=== PATIENT | female | born 1990 | race African-American/Black ===

== ENCOUNTER 2017-11-30 15:04 | Emergency (ER) | payer SELFPAY ==
--- NOTE | 2017-11-30 15:34 | EDPHYS ---
Physician Documentation [facility] Name: Cata Murray Age: 27 yrs Sex: Female : 1990 Arrival Date: 11/30/2017 Time: 15:05 Bed 20 Private MD: ED Physician Wolf Crain HPI: 11/30 15:28 This 27 yrs old Black Female presents to ER via Ambulatory with complaints of kdr Toothache, Headache. 15:28 The patient presents with broken tooth/teeth, pain. The problem is located in the lower kdr left third molar. Onset: The symptoms/episode began/occurred suddenly, this morning, at 05:30. Duration: The symptoms are continuous, and are steadily getting worse. Modifying factors: The symptoms are alleviated by nothing, the symptoms are aggravated by air, chewing, cold fluids. Associated signs and symptoms: Pertinent positives: pain, Headache. Severity of symptoms: At their worst the symptoms were moderate, in the emergency department the symptoms are unchanged. The patient has not experienced similar symptoms in the past. The patient has not recently seen a physician. 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 - Social history:: Smoking status: Patient/guardian denies using tobacco. ROS: 15:28 Constitutional: Negative for fever, chills, and weight loss, Eyes: Negative for injury, kdr pain, redness, and discharge, Neck: Negative for injury, pain, and swelling, Cardiovascular: Negative for chest pain, palpitations, and edema, Respiratory: Negative for shortness of breath, cough, wheezing, and pleuritic chest pain, Abdomen/GI: Negative for abdominal pain, nausea, vomiting, diarrhea, and constipation, Back: Negative for injury and pain, : Negative for injury, bleeding, discharge, and swelling, MS/Extremity: Negative for injury and deformity, Skin: Negative for injury, rash, and discoloration, Neuro: Negative for headache, weakness, numbness, tingling, and seizure activity. Psych: Negative for depression, anxiety, suicide ideation, homicidal ideation, and hallucinations, Allergy/Immunology: Negative for hives, rash, and allergies, Endocrine: Negative for neck swelling, polydipsia, polyuria, polyphagia, and marked weight changes, Hematologic/Lymphatic: Negative for swollen nodes, abnormal bleeding, and unusual bruising. 15:28 ENT: Positive for dental pain, of the lower left third molar. Exam: 15:28 Constitutional: This is a well developed, well nourished patient who is awake, alert, kdr and in no acute distress. Head/Face: Normocephalic, atraumatic. Eyes: Pupils equal round and reactive to light, extra-ocular motions intact. Lids and lashes normal. Conjunctiva and sclera are non-icteric and not injected. Cornea within normal limits. Periorbital areas with no swelling, redness, or edema. Neck: Trachea midline, no thyromegaly or masses palpated, and no cervical lymphadenopathy. Supple, full range of motion without nuchal rigidity, or vertebral point tenderness. No Meningismus. Chest/axilla: Normal chest wall appearance and motion. Nontender with no deformity. No lesions are appreciated. 15:28 ENT: Dental exam: dental caries, that is mild, specifically in the lower left third molar (#17), pain. Vital Signs: 15:09 BP 149 / 110; Pulse 90; Resp 16; Temp 98.5; Pulse Ox 100% on R/A; Weight 83.91 kg; la1 Height 5 ft. 5 in. (165.10 cm); 15:09 Body Mass Index 30.79 (83.91 kg, 165.10 cm) la1 MDM: 15:28 Data reviewed: vital signs, nurses notes. Counseling: I had a detailed discussion with kdr the patient and/or guardian regarding: the historical points, exam findings, and any diagnostic results supporting the discharge/admit diagnosis, the need for outpatient follow up. 15:34 Patient medically screened. kdr Administered Medications: 15:44 Drug: TORadol 60 mg Route: IM; Site: right gluteus; em 16:00 Follow up: Response: No adverse reaction em 15:44 Drug: Amoxicillin 500 mg Route: PO; em 16:00 Follow up: Response: No adverse reaction em 15:44 Drug: Flagyl 500 mg Route: PO; em 16:00 Follow up: Response: No adverse reaction em Disposition: 11/30/17 15:34 Discharged to Home. Impression: Dental caries. - Condition is Stable. - Discharge Instructions: Dental Pain, [id number]. - Prescriptions for Amoxicillin 500 mg Oral Capsule - take 1 capsule by ORAL route every 8 hours for 10 days; 30 tablet. Flagyl 500 mg Oral Tablet - take 1 tablet by ORAL route every 6 hours for 10 days; 40 tablet. Tylenol- Codeine #3 300-30 mg Oral Tablet - take 2 tablets by ORAL route every 6 hours As needed; 16 tablet. - Medication Reconciliation Form, Thank You Letter, Antibiotic Education, Prescription Opioid Use form. - Follow up: Private Physician; When: 1 - 2 days; Reason: If symptoms return, Further diagnostic work-up, Recheck today's complaints, Continuance of care, Re-evaluation by your physician. - Problem is new. - Symptoms have improved. Signatures: Wolf Crain MD MD kdr Munoz, Edgar, DIRECTOR SEMICONDUCTOR DIRECTOR SEMICONDUCTOR Jaquelin Dubon, RN RN iw Petr Bajwa RN RN la1
--- NOTE | 2017-11-30 15:34 | ER ---
Nurse's Notes [facility] Name: Cata Murray Age: 27 yrs Sex: Female : 1990 Arrival Date: 11/30/2017 Time: 15:05 Bed 20 Private MD: Diagnosis: Dental caries Presentation: 11/30 15:08 Presenting complaint: Patient states: toothache since this morning. Transition of care: la1 patient was not received from another setting of care. Onset of symptoms was November 30, 2017. Care prior to arrival: None. 15:08 Method Of Arrival: Ambulatory la1 15:08 Acuity: CARLOS 5 la1 Triage Assessment: 15:48 EENT: Reports. 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 - Social history:: Smoking status: Patient/guardian denies using tobacco. Screenin:47 Abuse screen: Denies threats or abuse. Nutritional screening: No deficits noted. em Tuberculosis screening: No symptoms or risk factors identified. Fall Risk None identified. Assessment: 15:30 General: Appears in no apparent distress. uncomfortable, Behavior is calm, cooperative. em Pain: Complains of pain in lower left third molar Pain currently is 10 out of 10 on a pain scale. Pain began 0500 this morning. Neuro: Level of Consciousness is awake, alert, obeys commands, Oriented to person, place, time, situation. Cardiovascular: Capillary refill < 3 seconds Patient's skin is warm and dry. Respiratory: Airway is patent Respiratory effort is even, unlabored, Respiratory pattern is regular, symmetrical. GI: Abdomen is round non-distended. : No signs and/or symptoms were reported regarding the genitourinary system. EENT: Oral mucosa is moist. Dental caries noted in lower left third molar. Derm: Skin is intact, Skin is pink, warm \T\ dry. Musculoskeletal: Range of motion: intact in all extremities. Vital Signs: 15:09 BP 149 / 110; Pulse 90; Resp 16; Temp 98.5; Pulse Ox 100% on R/A; Weight 83.91 kg; la1 Height 5 ft. 5 in. (165.10 cm); 15:09 Body Mass Index 30.79 (83.91 kg, 165.10 cm) la1 ED Course: 15:05 Patient arrived in ED. as 15:09 Triage completed. la1 15:10 Arm band placed on left wrist. la1 15:16 Wolf Crain MD is Attending Physician. kdr 15:29 Gabriel Rogel LVN is Primary Nurse. em 15:30 Patient has correct armband on for positive identification. Bed in low position. Call em light in reach. Side rails up X2. 15:47 No provider procedures requiring assistance completed. Patient did not have IV access em during this emergency room visit. Administered Medications: 15:44 Drug: TORadol 60 mg Route: IM; Site: right gluteus; em 16:00 Follow up: Response: No adverse reaction em 15:44 Drug: Amoxicillin 500 mg Route: PO; em 16:00 Follow up: Response: No adverse reaction em 15:44 Drug: Flagyl 500 mg Route: PO; em 16:00 Follow up: Response: No adverse reaction em Outcome: 15:34 Discharge ordered by . kdr 15:47 Discharged to home ambulatory. em 15:47 Condition: good 15:47 Discharge instructions given to patient, Instructed on discharge instructions, follow up and referral plans. medication usage, Demonstrated understanding of instructions, follow-up care, medications, Prescriptions given X 3. 15:59 Patient left the ED. iw Signatures: Wolf Crain MD MD kdr Gabriel Rogel, TEE OLIVEIRA em [place] as Jaquelin Arguello RN DADA iw Petr Bajwa RN RN la
[2017-11-30] MEDS ORDERED: KETOROLAC 30 MG/ML INJ ONE (15:54)
[2017-11-30] MEDS ORDERED: AMOXICILLIN TRIHYDR 250 MG CAP ONE (15:54)
[2017-11-30] MEDS ORDERED: metroNIDAZOLE 500 MG TABLET ONE (15:54)
== END 2017-11-30 15:59 | disposition home or self-care (01) ==
LOC: ER 15:04
DX: K02.9 Dental caries, unspecified (principal)
CPT/HCPCS: 96372; 99283

== ENCOUNTER 2017-12-02 15:35 | Emergency (ER) | payer SELFPAY ==
[2017-12-02] MEDS ORDERED: CLINDAMYCIN 900MG/D5W 900 MG/50 ML BAG IV ONE (16:43)
[2017-12-02] MEDS ORDERED: HYDROCODONE/APAP 10/325 TAB ONE (16:44)
--- NOTE | 2017-12-02 17:04 | EDPHYS ---
Physician Documentation [facility] Name: Cata Murray Age: 27 yrs Sex: Female : 1990 Arrival Date: 12/02/2017 Time: 15:38 Bed 14 Private MD: ED Physician Vasiliy Salguero HPI: 12/02 16:47 This 27 yrs old Black Female presents to ER via Ambulatory with complaints of Facial pm1 Swelling. 16:47 The patient presents with broken tooth/teeth, swelling. The problem is located in the pm1 lower left third molar. Onset: The symptoms/episode began/occurred 3 day(s) ago. Duration: The symptoms are continuous. Modifying factors: The symptoms are alleviated by nothing, the symptoms are aggravated by chewing, food. Associated signs and symptoms: Pertinent negatives: abdominal pain, chest pain, earache, fever, shortness of breath, sore throat. Severity of symptoms: in the emergency department the symptoms are actually worse. The patient has been recently seen at the [facility] Emergency Department, for similar complaints Patient was seen here two days ago and prescribed amoxicillin and Flagyl for dental caries. Patient started the antibiotics and saw a dentist yesterday. Patient woke up with swelling to left jaw this morning. Contacted her dentist and was instructed to report to the ER for stronger antibiotics. 16:47 No trismus. Patient able to eat and drink. No fevers. 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 - Social history:: Smoking status: Patient/guardian denies using tobacco. ROS: 16:58 Constitutional: Negative for fever, chills, and weight loss, Eyes: Negative for injury, pm1 pain, redness, and discharge. 16:58 Neck: Negative for injury, pain, and swelling, Cardiovascular: Negative for chest pain, palpitations, and edema, Respiratory: Negative for shortness of breath, cough, wheezing, and pleuritic chest pain, Abdomen/GI: Negative for abdominal pain, nausea, vomiting, diarrhea, and constipation, Back: Negative for injury and pain, MS/Extremity: Negative for injury and deformity. 16:58 Neuro: Negative for headache, weakness, numbness, tingling, and seizure. 16:58 ENT: Positive for dental pain, Negative for sore throat, difficulty swallowing, difficulty handling secretions, hoarseness. 16:58 Skin: Positive for swelling, of the left mandible. Exam: 16:58 Constitutional: This is a well developed, well nourished patient who is awake, alert, pm1 and in no acute distress. Head/Face: Normocephalic, atraumatic. Eyes: Pupils equal round and reactive to light, extra-ocular motions intact. Lids and lashes normal. Conjunctiva and sclera are non-icteric and not injected. Cornea within normal limits. Periorbital areas with no swelling, redness, or edema. 16:58 Neck: Trachea midline, no thyromegaly or masses palpated, and no cervical lymphadenopathy. Supple, full range of motion without nuchal rigidity, or vertebral point tenderness. No Meningismus. Chest/axilla: Normal chest wall appearance and motion. Nontender with no deformity. No lesions are appreciated. Cardiovascular: Regular rate and rhythm with a normal S1 and S2. No gallops, murmurs, or rubs. No pulse deficits. Respiratory: Lungs have equal breath sounds bilaterally, clear to auscultation and percussion. No rales, rhonchi or wheezes noted. No increased work of breathing, no retractions or nasal flaring. Abdomen/GI: Soft, non-tender, with normal bowel sounds. No distension or tympany. No guarding or rebound. No evidence of tenderness throughout. Back: No spinal tenderness. No costovertebral tenderness. Full range of motion. Skin: Warm, dry with normal turgor. Normal color with no rashes, no lesions, and no evidence of cellulitis. MS/ Extremity: Pulses equal, no cyanosis. Neurovascular intact. Full, normal range of motion. 16:58 ENT: External ear(s): are unremarkable, Ear canal(s): are normal, TM's: are normal, Nose: is normal, Mouth: Lips: normal, Oral mucosa: normal, pink and intact, moist, Gums: normal with healthy appearance, Tongue: is normal, No trismus, floor of mouth soft, Posterior pharynx: is normal, Airway: normal, no evidence of obstruction, patent, Tonsils: are normal in appearance, Uvula: normal, midline, non-edematous, no erythema, Dental exam: fractured teeth are noted, specifically the lower left third molar. 16:58 Neuro: Orientation: is normal, Motor: is normal, Gait: is steady, at a normal pace, without difficulty. Vital Signs: 16:01 BP 135 / 101; Pulse 84; Resp 19; Temp 98.0; Pulse Ox 99% on R/A; Weight 83.91 kg; aj Height 5 ft. 5 in. (165.10 cm); Pain 10/10; 17:00 BP 123 / 88; Pulse 80; Resp 16; Pulse Ox 98% on R/A; Pain 0/10; rb1 16:01 Body Mass Index 30.79 (83.91 kg, 165.10 cm) aj MDM: 16:19 Patient medically screened. pm1 16:58 Data reviewed: vital signs. Data interpreted: Pulse oximetry: on is 99 %. pm1 Interpretation: normal. Counseling: I had a detailed discussion with the patient and/or guardian regarding: the historical points, exam findings, and any diagnostic results supporting the discharge/admit diagnosis, the need for outpatient follow up, for definitive care, a dentist, to return to the emergency department if symptoms worsen or persist or if there are any questions or concerns that arise at home. 16:58 ED course: Patient has not taken enough antibiotic, only 1 day, to consider failed pm1 therapy however dentist requesting stronger antibiotic therapy. Will prescribe the patient clindamycin. Patient was given prescription for tramadol by dentist yesterday. 12/02 16:20 Order name: IV Saline Lock; Complete Time: 16:31 pm1 Administered Medications: 16:31 Drug: HYDROcodone-acetaminophen 10 mg-325 mg 1 tabs Route: PO; rb1 17:00 Follow up: Response: No adverse reaction; Pain is decreased rb1 16:32 Drug: Clindamycin 900 mg Route: IVPB; Infused Over: 30 mins; Site: right antecubital; rb1 17:00 Follow up: IV Status: Completed infusion rb1 Disposition: 12/03 07:33 Co-signature as Attending Physician, Vasiliy Salguero MD I agree with the assessment and [facility] plan of care. Disposition: 12/02/17 17:03 Discharged to Home. Impression: Dental caries. - Condition is Stable. - Discharge Instructions: Dental Pain. - Prescriptions for Clindamycin HCl 300 mg Oral Capsule - take 1 capsule by ORAL route every 6 hours for 10 days; 40 capsule. - Medication Reconciliation Form, Thank You Letter, Antibiotic Education, Prescription Opioid Use form. - Follow up: Emergency Department; When: As needed; Reason: Worsening of condition. Follow up: Private Physician; When: 2 - 3 days; Reason: Recheck today's complaints, Continuance of care, Re-evaluation by your physician. - Problem is new. - Symptoms have improved. Signatures: Talita Mills RN RN aj Anderson, Corey, MD MD cha Barber, Rebecca, RN RN Shaun Crawley NP MECHANICAL INTERN pm1
--- NOTE | 2017-12-02 17:04 | ER ---
Nurse's Notes [facility] Name: Cata Murray Age: 27 yrs Sex: Female : 1990 Arrival Date: 12/02/2017 Time: 15:38 Bed 14 Private MD: Diagnosis: Dental caries Presentation: 12/02 15:59 Presenting complaint: Patient states: Left lower jaw swelling for 2 days. Seen by aj dentist yesterday and put on Amoxicillin and Flagyl. Worse today. Transition of care: patient was not received from another setting of care. Onset of symptoms was December 01, 2017. Care prior to arrival: None. 15:59 Method Of Arrival: Ambulatory 15:59 Acuity: CARLOS 3 Triage Assessment: 16:01 General: Appears in no apparent distress. uncomfortable, Behavior is calm, cooperative. aj Pain: Complains of pain in left cheek and left mandible Pain currently is 10 out of 10 on a pain scale. Neuro: Level of Consciousness is awake, alert, obeys commands, Oriented to person, place, time, situation. Respiratory: Airway is patent Respiratory effort is even, unlabored, Respiratory pattern is regular, symmetrical. Derm: Skin is intact, is healthy with good turgor, Skin is pink, warm \T\ dry. normal. 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 - Social history:: Smoking status: Patient/guardian denies using tobacco. Screenin:11 Abuse screen: Denies threats or abuse. Nutritional screening: No deficits noted. rb1 Tuberculosis screening: No symptoms or risk factors identified. Fall Risk None identified. Assessment: 16:11 General: Appears uncomfortable, Behavior is calm, cooperative. Pain: Complains of pain rb1 in lower left third molar Pain currently is 10 out of 10 on a pain scale. Neuro: Level of Consciousness is awake, alert, obeys commands, Oriented to person, place, time, situation. Cardiovascular: Capillary refill < 3 seconds is brisk in bilateral fingers. Respiratory: Airway is patent Respiratory effort is even, unlabored, Respiratory pattern is regular, symmetrical. GI: No signs and/or symptoms were reported involving the gastrointestinal system. : No signs and/or symptoms were reported regarding the genitourinary system. Derm: Skin is dry, Skin is normal, Skin temperature is warm. Musculoskeletal: Swelling present in left mandible. 17:00 Reassessment: Patient appears in no apparent distress at this time. Patient and/or rb1 family updated on plan of care and expected duration. Pain level reassessed. Patient is alert, oriented x 3, equal unlabored respirations, skin warm/dry/pink. Patient states feeling better. Vital Signs: 16:01 BP 135 / 101; Pulse 84; Resp 19; Temp 98.0; Pulse Ox 99% on R/A; Weight 83.91 kg; aj Height 5 ft. 5 in. (165.10 cm); Pain 10/10; 17:00 BP 123 / 88; Pulse 80; Resp 16; Pulse Ox 98% on R/A; Pain 0/10; rb1 16:01 Body Mass Index 30.79 (83.91 kg, 165.10 cm) ED Course: 15:38 Patient arrived in ED. rg4 16:00 Triage completed. aj 16:01 Arm band placed on right wrist. Patient placed in waiting room, Patient notified of wait time. 16:11 Patient has correct armband on for positive identification. Bed in low position. Call rb1 light in reach. Side rails up X 1. Pulse ox on. NIBP on. 16:12 Shaun Hopper NP is PHCP. pm1 16:12 Vasiliy Salguero MD is Attending Physician. pm1 16:13 Hannah Nelson, DADA is Primary Nurse. rb1 16:15 Inserted saline lock: 20 gauge in right antecubital area, using aseptic technique. rb1 ,using aseptic technique. Inserted by BENITEZ Narayan tech. 17:23 No provider procedures requiring assistance completed. IV discontinued, intact, rb1 bleeding controlled, No redness/swelling at site. Pressure dressing applied. Administered Medications: 16:31 Drug: HYDROcodone-acetaminophen 10 mg-325 mg 1 tabs Route: PO; rb1 17:00 Follow up: Response: No adverse reaction; Pain is decreased rb1 16:32 Drug: Clindamycin 900 mg Route: IVPB; Infused Over: 30 mins; Site: right antecubital; rb1 17:00 Follow up: IV Status: Completed infusion rb1 Outcome: 17:03 Discharge ordered by . pm1 17:23 Discharged to home ambulatory, with friend. rb1 17:23 Condition: stable 17:23 Discharge instructions given to patient, Instructed on discharge instructions, follow up and referral plans. medication usage, Demonstrated understanding of instructions, follow-up care, medications, Prescriptions given X 1. 17:24 Patient left the ED. rb1 Signatures: Talita Mills RN RN Hannah Rapp RN RN rb1 Shaun Hopper, LORRAINE ADOPTION WORKER pm1 Eugenia Dunaway rg4
== END 2017-12-02 17:24 | disposition home or self-care (01) ==
LOC: ER 15:35
DX: K02.9 Dental caries, unspecified (principal)
CPT/HCPCS: 96365; 99284

== ENCOUNTER 2017-12-04 05:46 | Emergency (ER) | payer SELFPAY ==
[2017-12-04] MEDS ORDERED: HYDROCODONE/APAP 10/325 TAB ONE (07:07)
[2017-12-04] MEDS ORDERED: BUPIVACAINE 0.5% PF 10 ML VIAL ONE (07:17)
[2017-12-04] MEDS ORDERED: LIDOCAINE 1% MPF 5 ML VIAL ONE (07:17)
--- NOTE | 2017-12-04 07:52 | ER ---
Nurse's Notes [facility] Name: Cata Murray Age: 27 yrs Sex: Female : 1990 Arrival Date: 12/04/2017 Time: 05:47 Bed 15 Private MD: Diagnosis: Periapical abscess without sinus Presentation: 12/04 05:57 Presenting complaint: Patient states: States seen here a couple days ago and prescribed lp1 stronger antibiotics for infected tooth to lower left side of mouth; States swelling increased to chin and pain to left mormonism area; States dentist will not pull tooth until swelling has decreased. Transition of care: patient was not received from another setting of care. Onset of symptoms was December 04, 2017. Care prior to arrival: None. 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 - Social history:: Smoking status: Patient/guardian denies using tobacco. Screenin:02 Abuse screen: Denies threats or abuse. Denies injuries from another. Nutritional lp1 screening: No deficits noted. Tuberculosis screening: No symptoms or risk factors identified. Fall Risk None identified. Assessment: 05:58 General: Appears in no apparent distress. uncomfortable, Behavior is cooperative, bs1 anxious. Pain: Complains of pain in left side of face/neck/temporal area Pain radiates to neck/temporal Pain currently is 8 out of 10 on a pain scale. Quality of pain is described as throbbing, Pain began gradually. Neuro: Level of Consciousness is awake, alert, obeys commands, Oriented to person, place, time, situation, Appropriate for age Cross Tie Maker are equal bilaterally Moves all extremities. Reports difficulty swallowing dizziness, headache numbness. Cardiovascular: Denies chest pain, palpitations, shortness of breath, Heart tones S1 S2 present Capillary refill < 3 seconds Patient's skin is warm and dry. Respiratory: Airway is patent Trachea midline Respiratory effort is even, unlabored, Respiratory pattern is regular, symmetrical, Breath sounds are clear bilaterally. GI: Reports intolerance of food. GI: patient states "It hurts to open my mouth.". : No deficits noted. No signs and/or symptoms were reported regarding the genitourinary system. EENT: No deficits noted. No signs and/or symptoms were reported regarding the EENT system. Derm: swelling noted to left side of face/neck Reports pain that is 8 out of 10 on a pain scale. Musculoskeletal: Circulation, motion, and sensation intact. Capillary refill < 3 seconds, Range of motion: intact in all extremities, Swelling present in left side of face/neck, underneath chin. 06:41 Reassessment: Patient appears in no apparent distress at this time. No changes from bs1 previously documented assessment. Patient and/or family updated on plan of care and expected duration. Pain level reassessed. Patient is alert, oriented x 3, equal unlabored respirations, skin warm/dry/pink. 07:11 General: Appears in no apparent distress. uncomfortable, Behavior is cooperative, hj anxious. Pain: Complains of pain in mouth Pain currently is 8 out of 10 on a pain scale. Quality of pain is described as throbbing, Pain began. Neuro: Level of Consciousness is awake, alert, obeys commands, Oriented to person, place, time, situation, Appropriate for age. Cardiovascular: Capillary refill < 3 seconds Patient's skin is warm and dry. Respiratory: Airway is patent Trachea Respiratory effort is even, unlabored, Respiratory pattern is regular, symmetrical, Breath sounds are clear. GI: No signs and/or symptoms were reported involving the gastrointestinal system. : No signs and/or symptoms were reported regarding the genitourinary system. EENT: No signs and/or symptoms were reported regarding the EENT system. Derm: No signs and/or symptoms reported regarding the dermatologic system. Musculoskeletal: Circulation, motion, and sensation intact. Capillary refill Range of motion: Swelling. 07:58 Reassessment: D/C instructions given;. hj Vital Signs: 05:59 BP 129 / 89; Pulse 80; Resp 16; Temp 98.2(O); Pulse Ox 100% on R/A; Weight 83.91 kg; lp1 Height 5 ft. 5 in. (165.10 cm); Pain 9/10; 06:41 BP 115 / 75; Pulse 76; Pulse Ox 100% on R/A; Pain 9/10; bs1 07:58 BP 118 / 80; Pulse 75; Resp 18; Pulse Ox 100% on R/A; hj 05:59 Body Mass Index 30.79 (83.91 kg, 165.10 cm) lp1 ED Course: 05:47 Patient arrived in ED. am2 05:52 Mirela Robles, RN is Primary Nurse. bs1 05:59 Triage completed. lp1 05:59 Arm band placed on left wrist. lp1 06:02 Patient has correct armband on for positive identification. Call light in reach. Pulse lp1 ox on. NIBP on. 06:04 Shaun Hopper NP is PHCP. pm1 06:04 Mitul Soto MD is Attending Physician. pm1 07:58 No provider procedures requiring assistance completed. Patient did not have IV access hj during this emergency room visit. Administered Medications: 06:51 Drug: HYDROcodone-acetaminophen 10 mg-325 mg 1 tabs Route: PO; bs1 07:11 Follow up: Response: No adverse reaction hj 06:56 Drug: Lidocaine (1 %) 1 vials Volume: 5 ml; Route: Infiltration; hj 06:57 Drug: Marcaine (0.5 %) 1 vials Volume: 10 ml; Route: Infiltration; hj Outcome: 07:52 Discharge ordered by MD. pm1 07:59 Discharged to home ambulatory. hj 07:59 Condition: stable 07:59 Discharge instructions given to patient, Instructed on discharge instructions, follow up and referral plans. Demonstrated understanding of instructions, follow-up care. 07:59 Patient left the ED. hj Signatures: Ailyn Piper RN RN lp1 Antonio Fregoso RN RN hj Shaun Hopper NP GROUNDS CREW SUPERVISOR pm1 aTlita Bauman am2 Mirela Robles, DADA GARLAND bs1 Corrections: (The following items were deleted from the chart) 06:42 06:41 BP 115 / 75; Pulse 76bpm; Pulse Ox 100% RA; bs1 bs1
--- NOTE | 2017-12-04 07:52 | EDPHYS ---
Physician Documentation [facility] Name: Cata Murray Age: 27 yrs Sex: Female : 1990 Arrival Date: 12/04/2017 Time: 05:47 Bed 15 Private MD: ED Physician Mitul Soto HPI: 12/04 07:52 This 27 yrs old Black Female presents to ER via Ambulatory with complaints of Dental pm1 pain and swelling. 07:52 The patient presents with pain, swelling. The problem is located in the lower left pm1 third molar. 07:52 Onset: The symptoms/episode began/occurred 5 day(s) ago. Duration: The symptoms are pm1 continuous. Modifying factors: The symptoms are alleviated by prescription meds, Tramadol, the symptoms are aggravated by chewing, food. Associated signs and symptoms: Pertinent positives: swelling, mandibular, Pertinent negatives: chills, dysphagia, fever, inability to eat, nausea, vomiting. Patient was seen here two days ago and started on Clindamycin. Patient reports pain has been improving but presented to the ER today because she had some swelling to her chin. 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 - Social history:: Smoking status: Patient/guardian denies using tobacco. ROS: 07:52 Constitutional: Negative for fever, chills, and weight loss, Eyes: Negative for injury, pm1 pain, redness, and discharge, Neck: Negative for injury, pain, and swelling, Cardiovascular: Negative for chest pain, palpitations, and edema. 07:52 Respiratory: Negative for shortness of breath, cough, wheezing, and pleuritic chest pain, Abdomen/GI: Negative for abdominal pain, nausea, vomiting, diarrhea, and constipation, Back: Negative for injury and pain, MS/Extremity: Negative for injury and deformity, Skin: Negative for injury, rash, and discoloration, Neuro: Negative for headache, weakness, numbness, tingling, and seizure. 07:52 ENT: Positive for dental pain, Negative for sore throat, difficulty swallowing, difficulty handling secretions, hoarseness. Exam: 07:52 Constitutional: This is a well developed, well nourished patient who is awake, alert, pm1 and in no acute distress. Head/Face: Normocephalic, atraumatic. Eyes: Pupils equal round and reactive to light, extra-ocular motions intact. Lids and lashes normal. Conjunctiva and sclera are non-icteric and not injected. Cornea within normal limits. Periorbital areas with no swelling, redness, or edema. 07:52 Head/Face: Normocephalic, atraumatic. No increased swelling to left mandibular area from ER visit 2 days ago Neck: Trachea midline, no thyromegaly or masses palpated, and no cervical lymphadenopathy. Supple, full range of motion without nuchal rigidity, or vertebral point tenderness. No Meningismus. Chest/axilla: Normal chest wall appearance and motion. Nontender with no deformity. No lesions are appreciated. Cardiovascular: Regular rate and rhythm with a normal S1 and S2. No gallops, murmurs, or rubs. Normal PMI, no JVD. No pulse deficits. Respiratory: Lungs have equal breath sounds bilaterally, clear to auscultation and percussion. No rales, rhonchi or wheezes noted. No increased work of breathing, no retractions or nasal flaring. Abdomen/GI: Soft, non-tender, with normal bowel sounds. No distension or tympany. No guarding or rebound. No evidence of tenderness throughout. Back: No spinal tenderness. No costovertebral tenderness. Full range of motion. Skin: Warm, dry with normal turgor. Normal color with no rashes, no lesions, and no evidence of cellulitis. MS/ Extremity: Pulses equal, no cyanosis. Neurovascular intact. Full, normal range of motion. 07:52 ENT: External ear(s): are unremarkable, Ear canal(s): are normal, TM's: are normal, Nose: is normal, Mouth: is normal, (-) tongue elevation (-) trismus Gums: noted to have an abscess, on the lower left third molar, lateral aspect, floor of mouth soft, Posterior pharynx: is normal, no acute changes, Airway: normal, no evidence of obstruction, patent, Tonsils: are normal in appearance, Uvula: normal, midline, non-edematous, no erythema, swelling, is not appreciated, pooling of secretions, is not appreciated. Vital Signs: 05:59 BP 129 / 89; Pulse 80; Resp 16; Temp 98.2(O); Pulse Ox 100% on R/A; Weight 83.91 kg; lp1 Height 5 ft. 5 in. (165.10 cm); Pain 9/10; 06:41 BP 115 / 75; Pulse 76; Pulse Ox 100% on R/A; Pain 9/10; bs1 07:58 BP 118 / 80; Pulse 75; Resp 18; Pulse Ox 100% on R/A; hj 05:59 Body Mass Index 30.79 (83.91 kg, 165.10 cm) lp1 Procedures: 07:21 I \T\ D: Incision and drainage was performed for an abscess of the left lateral aspect of pm1 lower left third molar Anesthetized with 0.5 ml's 1% Lidocaine. Marcaine 0.5% 0.5 ml. Incised with 18 gauge needle. Drained small amount serosanguinous fluid. the patient tolerated the procedure well. MDM: 06:05 Patient medically screened. pm1 07:47 Data reviewed: vital signs. Data interpreted: Pulse oximetry: on room air is 100 %. pm1 Interpretation: normal. Counseling: I had a detailed discussion with the patient and/or guardian regarding: the historical points, exam findings, and any diagnostic results supporting the discharge/admit diagnosis, the need for outpatient follow up, for definitive care, a dentist, to return to the emergency department if symptoms worsen or persist or if there are any questions or concerns that arise at home. Administered Medications: 06:51 Drug: HYDROcodone-acetaminophen 10 mg-325 mg 1 tabs Route: PO; bs1 07:11 Follow up: Response: No adverse reaction hj 06:56 Drug: Lidocaine (1 %) 1 vials Volume: 5 ml; Route: Infiltration; hj 06:57 Drug: Marcaine (0.5 %) 1 vials Volume: 10 ml; Route: Infiltration; hj Disposition: 12/04/17 07:52 Discharged to Home. Impression: Periapical abscess without sinus. - Condition is Stable. - Discharge Instructions: Abscessed Tooth, [id number]. - Medication Reconciliation Form, Thank You Letter, Antibiotic Education, Prescription Opioid Use form. - Follow up: Emergency Department; When: As needed; Reason: Worsening of condition. Follow up: Private Physician; When: 2 - 3 days; Reason: Recheck today's complaints, Continuance of care, Re-evaluation by your physician. - Problem is new. - Symptoms have improved. - Notes: Continue taking the clindamycin and tramadol as prescribed Addendum: 12/06/2017 07:00 Co-signature as Attending Physician, Mitul Soto MD. r n Signatures: Mitul Soto MD MD rn Ailyn Piper RN RN lp1 Antonio Fregoso RN RN Shaun Jones, LORRAINE TELEPHONE COIN BOX COLLECTOR pm1 Mirela Robles RN RN bs1 Corrections: (The following items were deleted from the chart) 12/04 07:28 07:21 I \T\ D: Incision and drainage was performed for an abscess of the left lateral pm1 aspect of lower left third molar Anesthetized with 0.5 ml's 1% Lidocaine. Marcaine 0.5 ml. Incised with 18 gauge needle. Drained small amount serosanguinous fluid. the patient tolerated the procedure well, pm1
== END 2017-12-04 07:59 | disposition home or self-care (01) ==
LOC: ER 05:46
PROC: 0C96XZZ Drainage of Lower Gingiva, External Approach (ICD-10-PCS; principal; 2017-12-04)
DX: K04.7 Periapical abscess without sinus (principal)
CPT/HCPCS: 99283

== ENCOUNTER 2019-02-26 01:25 | Emergency (ER) | payer SELFPAY ==
--- OUTSIDE RECORDS SUMMARY | 2019-02-26 01:27 | XMS REPORT ---
:1990 [facility] Address [address] [place] [address] Care Team Providers Name Role Phone Unavailable Unavailable Unavailable Problems This patient has no known problems. Allergies, Adverse Reactions, Alerts This patient has no known allergies or adverse reactions. Medications This patient has no known medications.
--- NOTE | 2019-02-26 01:52 | ER ---
Nurse's Notes [facility] Name: Cata Murray Age: 28 yrs Sex: Female : 1990 Arrival Date: 02/26/2019 Time: 01:26 Bed 5 Private MD: Diagnosis: Acute pharyngitis Presentation: 02/26 01:35 Presenting complaint: Patient states: sore throat and swollen lymph nodes in neck x 1 tl2 week. Pt reports difficult swallowing and pain when touching outside of throat. Transition of care: patient was not received from another setting of care. Onset of symptoms was February 18, 2019. Risk Assessment: Do you want to hurt yourself or someone else? Patient reports no desire to harm self or others. Initial Sepsis Screen: Does the patient meet any 2 criteria? No. Patient's initial sepsis screen is negative. Does the patient have a suspected source of infection? No. Patient's initial sepsis screen is negative. Care prior to arrival: None. 01:35 Method Of Arrival: Ambulatory tl2 01:35 Acuity: CARLOS 4 tl2 Triage Assessment: 01:37 EENT: Throat has enlarged tonsils bilaterally. 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 - Social history:: Smoking status: Patient uses tobacco products, smokes one-half pack cigarettes per day. - Ebola Screening: : No symptoms or risks identified at this time. - Family history:: not pertinent. Screenin:38 Abuse screen: Denies threats or abuse. Nutritional screening: No deficits noted. tl2 Tuberculosis screening: No symptoms or risk factors identified. Fall Risk None identified. Assessment: 01:40 General: Appears in no apparent distress. uncomfortable, Behavior is calm, cooperative, rr5 appropriate for age. 01:40 Pain: Complains of pain in throat Pain does not radiate. Pain currently is 5 out of 10 rr5 on a pain scale. Quality of pain is described as aching, Pain began gradually. Neuro: Level of Consciousness is awake, alert, obeys commands, Oriented to person, place, time, situation. Cardiovascular: Capillary refill < 3 seconds Patient's skin is warm and dry. Respiratory: Airway is patent Respiratory effort is even, unlabored, Respiratory pattern is regular, symmetrical, Breath sounds are clear. Respiratory: Denies cough, shortness of breath. GI: No signs and/or symptoms were reported involving the gastrointestinal system. : No signs and/or symptoms were reported regarding the genitourinary system. EENT: Throat is reddened bilaterally with gag reflex present. Derm: No signs and/or symptoms reported regarding the dermatologic system. Musculoskeletal: Circulation, motion, and sensation intact. Capillary refill < 3 seconds, Range of motion: intact in all extremities. Vital Signs: 01:37 BP 158 / 109; Pulse 84; Resp 18; Temp 98.4(O); Pulse Ox 100% on R/A; Weight 84.37 kg; tl2 Height 5 ft. 5 in. (165.10 cm); Pain 5/10; 01:57 BP 145 / 99; Pulse 74; Resp 16; Pulse Ox 99% on R/A; rr5 02:02 BP 131 / 86; Pulse 79; Resp 17; Pulse Ox 99% ; rr5 01:37 Body Mass Index 30.95 (84.37 kg, 165.10 cm) tl2 ED Course: 01:26 Patient arrived in ED. ds1 01:29 Vasiliy Salguero MD is Attending Physician. sammy 01:36 Triage completed. tl2 01:37 Arm band placed on right wrist. tl2 01:40 Padilla Saldaña RN is Primary Nurse. rr5 01:40 Patient has correct armband on for positive identification. rr5 02:02 No provider procedures requiring assistance completed. Patient did not have IV access rr5 during this emergency room visit. Administered Medications: No medications were administered Outcome: 01:51 Discharge ordered by . sammy 02:02 Discharged to home ambulatory. rr5 02:02 Condition: stable 02:02 Discharge instructions given to patient, Instructed on discharge instructions, follow up and referral plans. Demonstrated understanding of instructions, follow-up care. 02:03 Patient left the ED. rr5 Signatures: Vasiliy Salguero MD MD cha Sanford, Demi ds1 Zhane Blanc RN RN tl2 Padilla Saldaña RN RN rr5
--- NOTE | 2019-02-26 01:52 | EDPHYS ---
Physician Documentation [facility] Name: Cata Murray Age: 28 yrs Sex: Female : 1990 Arrival Date: 02/26/2019 Time: : Bed 5 Private MD: ED Physician Vasiliy Salguero HPI: 02/26 01:41 This 28 yrs old Black Female presents to ER via Ambulatory with complaints of Sore sammy Throat. 01:41 The patient presents with sore throat. The patient describes throat pain as burning, sammy dry. Onset: The symptoms/episode began/occurred 2 day(s) ago. Severity of symptoms: At their worst the symptoms were very mild, in the emergency department the symptoms are unchanged. Modifying factors: The symptoms are alleviated by nothing, the symptoms are aggravated by nothing. Associated signs and symptoms: The patient has no apparent associated signs or symptoms. The patient has not experienced similar symptoms in the past. 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 - Social history:: Smoking status: Patient uses tobacco products, smokes one-half pack cigarettes per day. - Ebola Screening: : No symptoms or risks identified at this time. - Family history:: not pertinent. ROS: 01:41 Constitutional: Negative for fever, chills, and weight loss, Eyes: Negative for injury, sammy pain, redness, and discharge, Neck: Negative for injury, pain, and swelling, Cardiovascular: Negative for chest pain, palpitations, and edema, Respiratory: Negative for shortness of breath, cough, wheezing, and pleuritic chest pain, Abdomen/GI: Negative for abdominal pain, nausea, vomiting, diarrhea, and constipation, Back: Negative for injury and pain, : Negative for injury, bleeding, discharge, and swelling, MS/Extremity: Negative for injury and deformity, Skin: Negative for injury, rash, and discoloration, Neuro: Negative for headache, weakness, numbness, tingling, and seizure. 01:41 ENT: Positive for sore throat. Exam: 01:41 Constitutional: This is a well developed, well nourished patient who is awake, alert, sammy and in no acute distress. Head/Face: Normocephalic, atraumatic. Eyes: Pupils equal round and reactive to light, extra-ocular motions intact. Lids and lashes normal. Conjunctiva and sclera are non-icteric and not injected. Cornea within normal limits. Periorbital areas with no swelling, redness, or edema. ENT: Nares patent. No nasal discharge, no septal abnormalities noted. Tympanic membranes are normal and external auditory canals are clear. Oropharynx with no redness, swelling, or masses, exudates, or evidence of obstruction, uvula midline. Mucous membranes moist. Neck: Trachea midline, no thyromegaly or masses palpated, and no cervical lymphadenopathy. Supple, full range of motion without nuchal rigidity, or vertebral point tenderness. No Meningismus. Chest/axilla: Normal chest wall appearance and motion. Nontender with no deformity. No lesions are appreciated. Cardiovascular: Regular rate and rhythm with a normal S1 and S2. No gallops, murmurs, or rubs. Normal PMI, no JVD. No pulse deficits. Respiratory: Lungs have equal breath sounds bilaterally, clear to auscultation and percussion. No rales, rhonchi or wheezes noted. No increased work of breathing, no retractions or nasal flaring. Abdomen/GI: Soft, non-tender, with normal bowel sounds. No distension or tympany. No guarding or rebound. No evidence of tenderness throughout. Back: No spinal tenderness. No costovertebral tenderness. Full range of motion. Female : Normal external genitalia. Skin: Warm, dry with normal turgor. Normal color with no rashes, no lesions, and no evidence of cellulitis. MS/ Extremity: Pulses equal, no cyanosis. Neurovascular intact. Full, normal range of motion. Neuro: Awake and alert, GCS 15, oriented to person, place, time, and situation. Cranial nerves II-XII grossly intact. Motor strength 5/5 in all extremities. Sensory grossly intact. Cerebellar exam normal. Normal gait. Psych: Awake, alert, with orientation to person, place and time. Behavior, mood, and affect are within normal limits. 01:43 ENT: Posterior pharynx: is normal, airway is patent, no erythema, no exudate, no sammy peritonsilar mass, no pooling of secretions, no swelling, normal tonsil apperance, normal sized tonsils, normal uvula appearance, normal uvula size. 01:43 Neck: External neck: no acute changes, abscess, is not appreciated, cellulitis, is not appreciated, crepitus, is not appreciated, ecchymosis, is not appreciated, erythema, is not appreciated, mass, is not appreciated, rash, is not appreciated, swelling, is not appreciated. Vital Signs: 01:37 BP 158 / 109; Pulse 84; Resp 18; Temp 98.4(O); Pulse Ox 100% on R/A; Weight 84.37 kg; tl2 Height 5 ft. 5 in. (165.10 cm); Pain 5/10; 01:57 BP 145 / 99; Pulse 74; Resp 16; Pulse Ox 99% on R/A; rr5 02:02 BP 131 / 86; Pulse 79; Resp 17; Pulse Ox 99% ; rr5 01:37 Body Mass Index 30.95 (84.37 kg, 165.10 cm) tl2 MDM: 01:29 Patient medically screened. [facility] 01:41 Data reviewed: vital signs, nurses notes. sammy Administered Medications: No medications were administered Disposition: 02/26/19 01:51 Discharged to Home. Impression: Acute pharyngitis. - Condition is Stable. - Discharge Instructions: Pharyngitis, Pharyngitis, [id number], Sore Throat, [id number]. - Medication Reconciliation Form, Thank You Letter, Antibiotic Education, Prescription Opioid Use, Work release form form. - Follow up: Private Physician; When: 2 - 3 days; Reason: Recheck today's complaints, Continuance of care, Re-evaluation by your physician. - Problem is new. - Symptoms have improved. Signatures: Vasiliy Salguero MD MD cha Knox, Taylor RN RN tl2 Padilla Saldaña RN RN rr5 Corrections: (The following items were deleted from the chart) 02:03 01:51 02/26/2019 01:51 Discharged to Home. Impression: Acute pharyngitis. Condition is rr5 Stable. Discharge Instructions: Pharyngitis, Pharyngitis, [id number], Sore Throat, [id number]. Forms are Medication Reconciliation Form, Thank You Letter, Antibiotic Education, Prescription Opioid Use. Follow up: Private Physician; When: 2 - 3 days; Reason: Recheck today's complaints, Continuance of care, Re-evaluation by your physician. Problem is new. Symptoms have improved. sammy
== END 2019-02-26 02:03 | disposition home or self-care (01) ==
LOC: ER 01:25
DX: J02.9 Acute pharyngitis, unspecified (principal); F17.210 Nicotine dependence, cigarettes, uncomplicated
CPT/HCPCS: 99281

== ENCOUNTER 2019-04-26 23:31 | Emergency (ER) | payer SELFPAY ==
--- OUTSIDE RECORDS SUMMARY | 2019-04-26 23:34 | XMS REPORT ---
:1990 Author Organization [facility] Address [address] [place] [address] Care Team Providers Name Role Phone Unavailable Unavailable Unavailable Problems This patient has no known problems. Allergies, Adverse Reactions, Alerts This patient has no known allergies or adverse reactions. Medications This patient has no known medications.
[2019-04-27] MEDS ORDERED: ONDANSETRON 4 MG/2 ML VIAL ONE (00:11)
[2019-04-27] MEDS ORDERED: IBUPROFEN 400 MG TAB ONE (00:29)
[2019-04-27] MEDS ORDERED: HYDROCODONE/APAP 5/325 MG TAB ONE (00:29)
--- NOTE | 2019-04-27 01:07 | ER ---
Nurse's Notes [facility] Name: Cata Murray Age: 28 yrs Sex: Female : 1990 Arrival Date: 04/26/2019 Time: 23:33 Bed 8 Private MD: Diagnosis: Pain in left elbow Presentation: 04/26 23:49 Presenting complaint: Patient states: i noticed last week my left forearm is swollen, rr5 purplish and burning feeling. I put an ice pack and it went away. tonight it came back and it got worse. burning feeling 7/10 pain score and it's swollen. denies any trauma. Transition of care: patient was not received from another setting of care. Onset of symptoms was April 20, 2019. Risk Assessment: Do you want to hurt yourself or someone else? Patient reports no desire to harm self or others. Initial Sepsis Screen: Does the patient meet any 2 criteria? No. Patient's initial sepsis screen is negative. Does the patient have a suspected source of infection? No. Patient's initial sepsis screen is negative. Care prior to arrival: None. 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 - Social history:: Smoking status: Patient uses tobacco products, smokes one pack cigarettes per day. Patient uses alcohol, only on a social basis. Patient/guardian denies using street drugs. - Ebola Screening: : Patient negative for fever greater than or equal to 101.5 degrees Fahrenheit, and additional compatible Ebola Virus Disease symptoms Patient denies exposure to infectious person Patient denies travel to an Ebola-affected area in the 21 days before illness onset. Screenin:55 Abuse screen: Denies threats or abuse. Denies injuries from another. Nutritional rr5 screening: No deficits noted. Tuberculosis screening: No symptoms or risk factors identified. Fall Risk None identified. Total Arreaga Fall Scale indicates No Risk (0-24 pts). Assessment: 23:55 General: Appears in no apparent distress. comfortable, Behavior is calm, cooperative, rr5 appropriate for age. Pain: Complains of pain in dorsal aspect of left forearm Pain does not radiate. Pain currently is 7 out of 10 on a pain scale. Quality of pain is described as burning, Pain began gradually, Is intermittent. Neuro: Level of Consciousness is awake, alert, obeys commands, Oriented to person, place, time, situation, Appropriate for age. Cardiovascular: Capillary refill < 3 seconds Patient's skin is warm and dry. Respiratory: Airway is patent Respiratory effort is even, unlabored, Respiratory pattern is regular, symmetrical. GI: No signs and/or symptoms were reported involving the gastrointestinal system. : No signs and/or symptoms were reported regarding the genitourinary system. EENT: No signs and/or symptoms were reported regarding the EENT system. Derm: Skin is intact, Skin temperature is warm. Musculoskeletal: Circulation, motion, and sensation intact. Capillary refill < 3 seconds, Reports pain in dorsal aspect of left forearm. 23:55 Musculoskeletal: Reports swollen and burning sensation left forearm. rr5 04/27 01:14 Reassessment: Patient appears in no apparent distress at this time. Patient is alert, rr5 oriented x 3, equal unlabored respirations, skin warm/dry/pink. Patient states feeling better. Patient states symptoms have improved. Reassessment: discharge instruction given and explained without complaints made, verbalized understanding. Pain: Pain currently is 3 out of 10 on a pain scale. Vital Signs: 04/26 23:53 BP 132 / 98; Pulse 85; Resp 17; Temp 98.9; Pulse Ox 99% ; Weight 79.38 kg; Height 5 ft. rr5 5 in. (165.10 cm); Pain 7/10; 04/27 00:42 BP 122 / 93; Pulse 80; Resp 14; Pulse Ox 100% ; rr5 04/26 23:53 Body Mass Index 29.12 (79.38 kg, 165.10 cm) rr5 ED Course: 04/26 23:33 Patient arrived in ED. ds1 23:49 Padilla Saldaña, RN is Primary Nurse. rr5 23:53 Triage completed. rr5 23:55 Arm band placed on. rr5 04/27 00:01 Patient has correct armband on for positive identification. Placed in gown. Bed in low rr5 position. Call light in reach. 00:01 No provider procedures requiring assistance completed. rr5 00:10 Vasiliy Brown PA is PHCP. cp 00:10 Ne Masterson MD is Attending Physician. cp 00:37 X-ray completed. Portable x-ray completed in exam room. Patient tolerated procedure kw well. 00:47 XRAY Elbow LEFT 3 view In Process Unspecified. EDMS 01:05 Marcelo Cruz MD is Referral Physician. cp 01:22 Patient did not have IV access during this emergency room visit. Sling applied to left rr5 arm. Administered Medications: 00:40 Drug: HYDROcodone-acetaminophen 5 mg-325 mg 1 tabs {Note: rass 0.} Route: PO; rr5 01:12 Follow up: Response: Pain is decreased; RASS: Alert and Calm (0) rr5 00:41 Drug: Ibuprofen 800 mg Route: PO; rr5 01:12 Follow up: Response: No adverse reaction; Pain is decreased rr5 00:44 CANCELLED (Other Intervention Used): HYDROcodone-acetaminophen (5 mg-500 mg) 1 tabs PO rr5 once; RASS on ADMIN: Combtv4, Very Agttd3, Agttd2, Rstlss1, AlertClm0, Drwsy-1, Lt Sdtn-2, Mod Sdtn-3, Dp Sdtn-4, UnArsble-5 Outcome: 01:06 Discharge ordered by . cp 01:22 Discharged to home ambulatory, with friend. rr5 01:22 Condition: stable 01:22 Discharge instructions given to patient, Instructed on discharge instructions, follow up and referral plans. medication usage, Demonstrated understanding of instructions, follow-up care, medications, Prescriptions given X 2. 01:23 Patient left the ED. rr5 Signatures: Dispatcher [employer] EDAR Jennifer Owusu Kimberlee kw Page, Corey, PA PA cp Roque, Raymond, DADA RN rr5 Corrections: (The following items were deleted from the chart) 00:44 00:40 HYDROcodone-acetaminophen (5 mg-500 mg) 1 tabs PO rr5 rr5
--- NOTE | 2019-04-27 01:07 | EDPHYS ---
Physician Documentation [facility] Name: Cata Murray Age: 28 yrs Sex: Female : 1990 Arrival Date: 04/26/2019 Time: 23:33 Bed 8 Private MD: ED Physician Ne Masterson HPI: 04/27 00:26 This 28 yrs old Black Female presents to ER via Ambulatory with complaints of Knot On cp Arm W/ Burning Sensation. 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 - Social history:: Smoking status: Patient uses tobacco products, smokes one pack cigarettes per day. Patient uses alcohol, only on a social basis. Patient/guardian denies using street drugs. - Ebola Screening: : Patient negative for fever greater than or equal to 101.5 degrees Fahrenheit, and additional compatible Ebola Virus Disease symptoms Patient denies exposure to infectious person Patient denies travel to an Ebola-affected area in the 21 days before illness onset. ROS: 04/27 00:35 Constitutional: Negative for body aches, chills, fever, poor PO intake. cp 00:35 Eyes: Negative for injury, pain, redness, and discharge. cp 00:35 ENT: Negative for drainage from ear(s), ear pain, sore throat, difficulty swallowing, difficulty handling secretions. 00:35 Cardiovascular: Negative for chest pain, palpitations. 00:35 Respiratory: Negative for cough, shortness of breath, wheezing. 00:35 MS/extremity: Positive for pain, tenderness, Negative for injury or acute deformity, paresthesias, warmth. 00:35 Skin: Negative for cellulitis, rash. 00:35 Neuro: Negative for dizziness, numbness, weakness. 00:35 All other systems are negative. Exam: 00:40 Eyes: Periorbital structures: appear normal, Conjunctiva: normal, no exudate, no cp injection, Sclera: no appreciated abnormality, Lids and lashes: appear normal, bilaterally. 00:40 ENT: External ear(s): are unremarkable, Nose: is normal, Mouth: is normal. 00:40 Chest/axilla: Inspection: normal. 00:40 Cardiovascular: Rate: normal, Pulses: Pulses are 2+ in right radial artery and left radial artery. 00:40 Respiratory: the patient does not display signs of respiratory distress, Respirations: normal, no use of accessory muscles, no retractions, no splinting, no tachypnea. 00:40 Musculoskeletal/extremity: Extremities: grossly normal except: noted in the left elbow: pain, tenderness, ROM: pain extension of elbow and supination, Perfusion: the extremity is normally perfused throughout, Sensation intact. 00:40 Skin: cellulitis, is not appreciated, no rash present. 00:40 Head/Face: Normocephalic, atraumatic. cp 00:40 Constitutional: The patient appears in no acute distress, alert, awake, non-toxic, well developed, well nourished. Vital Signs: 04/26 23:53 BP 132 / 98; Pulse 85; Resp 17; Temp 98.9; Pulse Ox 99% ; Weight 79.38 kg; Height 5 ft. rr5 5 in. (165.10 cm); Pain 7/10; 04/27 00:42 BP 122 / 93; Pulse 80; Resp 14; Pulse Ox 100% ; rr5 04/26 23:53 Body Mass Index 29.12 (79.38 kg, 165.10 cm) rr5 Procedures: 01:20 Splinting: Splint applied to left arm using sling, applied by nurse. Examined by me, cp post splint application: neurovascular intact, Patient tolerated well. MDM: 00:16 Patient medically screened. cp 00:30 Differential diagnosis: closed fracture, tendonitis, bursitis, less likely DVT, medial cp epicondylitis. 01:05 Data reviewed: vital signs, nurses notes, radiologic studies, plain films. cp 01:05 Test interpretation: by ED physician or midlevel provider: xrays of left elbow negative cp for fracture. Counseling: I had a detailed discussion with the patient and/or guardian regarding: the historical points, exam findings, and any diagnostic results supporting the discharge/admit diagnosis, radiology results, the need for outpatient follow up, a orthopedic surgeon, to return to the emergency department if symptoms worsen or persist or if there are any questions or concerns that arise at home. Response to treatment: the patient's symptoms have mildly improved after treatment, and as a result, I will discharge patient. 04/27 00:26 Order name: XRAY Elbow LEFT 3 view cp 04/27 01:15 Order name: Slalfonso; Complete Time: 01:22 cp Administered Medications: 00:40 Drug: HYDROcodone-acetaminophen 5 mg-325 mg 1 tabs {Note: rass 0.} Route: PO; rr5 01:12 Follow up: Response: Pain is decreased; RASS: Alert and Calm (0) rr5 00:41 Drug: Ibuprofen 800 mg Route: PO; rr5 01:12 Follow up: Response: No adverse reaction; Pain is decreased rr5 00:44 CANCELLED (Other Intervention Used): HYDROcodone-acetaminophen (5 mg-500 mg) 1 tabs PO rr5 once; RASS on ADMIN: Combtv4, Very Agttd3, Agttd2, Rstlss1, AlertClm0, Drwsy-1, Lt Sdtn-2, Mod Sdtn-3, Dp Sdtn-4, UnArsble-5 Disposition: 04/27/19 01:06 Discharged to Home. Impression: Pain in left elbow. - Condition is Stable. - Discharge Instructions: Tennis Elbow. - Prescriptions for Ibuprofen 800 mg Oral Tablet - take 1 tablet by ORAL route every 8 hours As needed take with food; 30 tablet. Tramadol 50 mg Oral Tablet - take 1 tablet by ORAL route every 8 hours as needed; 12 tablet. - Medication Reconciliation Form, Thank You Letter, Antibiotic Education, Prescription Opioid Use, Work release form form. - Follow up: Marcelo Cruz MD; When: 1 week; Reason: Worsening of condition. - Problem is new. - Symptoms have improved. Addendum: 04/28/2019 07:29 Co-signature as Attending Physician, Ne Masterson MD. m a2 Signatures: Dispatcher [employer] EDVasiliy Mcfarlane PA PA cp Alzahri, Mohammad, MD MD ma2 Padilla Saldaña RN RN rr5 Corrections: (The following items were deleted from the chart) 04/27 00:44 00:26 HYDROcodone-acetaminophen (5 mg-500 mg) 1 tabs PO once; RASS on ADMIN: Combtv4, rr5 Very Agttd3, Agttd2, Rstlss1, AlertClm0, Drwsy-1, Lt Sdtn-2, Mod Sdtn-3, Dp Sdtn-4, UnArsble-5 ordered. cp 00:44 00:40 HYDROcodone-acetaminophen (5 mg-500 mg) 1 tabs PO once; RASS on ADMIN: Combtv4, rr5 Very Agttd3, Agttd2, Rstlss1, AlertClm0, Drwsy-1, Lt Sdtn-2, Mod Sdtn-3, Dp Sdtn-4, UnArsble-5 given. rr5 00:44 00:44 HYDROcodone-acetaminophen (5 mg-500 mg) 1 tabs PO once; RASS on ADMIN: Combtv4, rr5 Very Agttd3, Agttd2, Rstlss1, AlertClm0, Drwsy-1, Lt Sdtn-2, Mod Sdtn-3, Dp Sdtn-4, UnArsble-5 ordered. rr5 01:23 01:06 04/27/2019 01:06 Discharged to Home. Impression: Pain in left elbow. Condition is rr5 Stable. Forms are Medication Reconciliation Form, Thank You Letter, Antibiotic Education, Prescription Opioid Use. Follow up: Dr. Marcelo Cruz; When: 1 week; Reason: Worsening of condition. Problem is new. Symptoms have improved. cp :04/26 00:40 Constitutional: The patient appears in no acute distress, alert, awake, cp non-toxic, well developed, well nourished, uncomfortable, cp 04/27 22:04/26 00:40 Head/Face: Normocephalic, atraumatic. cp cp 04/27 22:04/26 00:35 Constitutional: Negative for body aches, chills, fever, poor PO intake, cp cp 04/27 22:04/26 00:35 Eyes: Negative for injury, pain, redness, and discharge, cp cp 04/27 22:04/26 00:35 ENT: Negative for drainage from ear(s), ear pain, sore throat, difficulty cp swallowing, difficulty handling secretions, cp 04/27 22:04/26 00:35 Cardiovascular: Negative for chest pain, cp cp 04/27 00:35 Respiratory: Negative for cough, shortness of breath, wheezing, cp cp 04/27 22:04/26 00:35 MS/extremity: Positive for pain, swelling, tenderness, of the medial aspect cp left elbow, painful ROM, Negative for injury or acute deformity, cp 04/27 22:04/26 00:35 Skin: Negative for cellulitis, rash, cp 04/27 22:04/26 00:35 Neuro: Negative for altered mental status, headache, numbness, weakness, cp cp 04/27 00:35 All other systems are negative, cp cp 04/27 22: 00:45 Splinting: Splint applied to left arm using sling, applied by nurse. Examined by cp me, post splint application: neurovascular intact, Patient tolerated well, cp
--- NOTE | 2019-04-27 07:40 | RAD REPORT ---
EXAM DESCRIPTION: RAD - Elbow Left 3 View - 04/27/2019 12:41 am CLINICAL HISTORY: Left forearm pain and swelling COMPARISON: None. FINDINGS: No fracture is identified and no elevated posterior fat pad. There is no dislocation or pe riosteal reaction noted. No foreign body. Post processing markers indicate pain primarily in the medial proximal forearm. No soft tissue abnorm ality seen that is clearly distinguishable from the musculature. There does appear to be mild edema c hange in the subcutaneous fatty tissues. IMPRESSION: Mild subcutaneous fat edema is seen in the area of concern proximal left forearm. No mas s seen discernible or discrete from musculature. No foreign body. No acute bone or joint finding of the left elbow.
== END 2019-04-27 01:23 | disposition home or self-care (01) ==
LOC: ER 23:31
DX: M25.522 Pain in left elbow (principal); F17.210 Nicotine dependence, cigarettes, uncomplicated
CPT/HCPCS: 99284; J2405

== ENCOUNTER 2019-05-03 19:15 | Emergency (ER) | payer SELFPAY ==
--- OUTSIDE RECORDS SUMMARY | 2019-05-03 19:17 | XMS REPORT ---
:1990 [facility] Address [address] [place] [address] Care Team Providers Name Role Phone Unavailable Unavailable Unavailable Problems This patient has no known problems. Allergies, Adverse Reactions, Alerts This patient has no known allergies or adverse reactions. Medications This patient has no known medications.
--- NOTE | 2019-05-03 20:13 | ER ---
Nurse's Notes [facility] Name: Cata Murray Age: 28 yrs Sex: Female : 1990 Arrival Date: 05/03/2019 Time: 19:19 Bed 24 Private MD: Diagnosis: Acute upper respiratory infection, unspecified Presentation: 05/03 19:21 Presenting complaint: Patient states: cough, sore throat, runny nose, headache. la1 Transition of care: patient was not received from another setting of care. Onset of symptoms was May 03, 2019. Risk Assessment: Do you want to hurt yourself or someone else? Patient reports no desire to harm self or others. Initial Sepsis Screen: Does the patient meet any 2 criteria? No. Patient's initial sepsis screen is negative. Does the patient have a suspected source of infection? No. Patient's initial sepsis screen is negative. Care prior to arrival: None. 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 - Social history:: Smoking status: Patient uses tobacco products, smokes one-half pack cigarettes per day. - Ebola Screening: : No symptoms or risks identified at this time. Screenin:45 Abuse screen: Denies threats or abuse. Denies injuries from another. Nutritional wh screening: No deficits noted. Tuberculosis screening: No symptoms or risk factors identified. Fall Risk None identified. Assessment: 19:47 Respiratory: Airway is patent Respiratory effort is even, unlabored, Respiratory wh pattern is regular, symmetrical, Breath sounds are clear bilaterally. 19:47 General: Appears in no apparent distress. Behavior is calm, cooperative, appropriate wh for age. Pain: Complains of pain in Sore throat Pain does not radiate. Neuro: Level of Consciousness is awake, alert, obeys commands. Cardiovascular: Heart tones S1 S2. GI: Abdomen is flat, non-distended. : No signs and/or symptoms were reported regarding the genitourinary system. EENT: Throat is pink. Derm: Skin is intact, is healthy with good turgor, Skin is pink, warm \T\ dry. normal. Musculoskeletal: Range of motion: intact in all extremities. Vital Signs: 19:22 BP 138 / 100; Pulse 88; Resp 16; Temp 97.1; Pulse Ox 100% on R/A; Weight 79.38 kg; la1 Height 5 ft. 4 in. (162.56 cm); 19:45 BP 149 / 99; Pulse 79; Resp 18; Temp 97.9; Pulse Ox 100% on R/A; wh 19:22 Body Mass Index 30.04 (79.38 kg, 162.56 cm) wy1 ED Course: 19:19 Patient arrived in ED. cf2 19:21 Triage completed. la1 19:22 Arm band placed on right wrist. la1 19:35 Jessy Benson is Primary Nurse. 19:39 Bulmaro Mccurdy PA is PHCP. jr8 19:40 Frankie Boyce MD is Attending Physician. jr8 19:40 Bed in low position. Call light in reach. Warm blanket given. Verbal reassurance given. jp3 19:40 Flu and/or RSV swab sent to lab. Strep swab sent to lab. jp3 19:40 Flu Sent. jp3 19:40 Strep Sent. jp3 20:22 No provider procedures requiring assistance completed. Patient did not have IV access during this emergency room visit. Administered Medications: No medications were administered Outcome: 20:12 Discharge ordered by . 8 20:23 Discharged to home ambulatory. 20:23 Condition: good 20:23 Discharge instructions given to patient, Instructed on discharge instructions, follow up and referral plans. medication usage, POC URTI Demonstrated understanding of instructions, follow-up care, medications, POC Prescriptions given X 3. 20:24 Patient left the ED. Signatures: Bulmaro Mccrudy PA PA jr8 Petr Bajwa, RN RN la1 Jessy Benson Kit Simpson 3 Ana Crockett cf2
--- NOTE | 2019-05-03 20:14 | EDPHYS ---
Physician Documentation [facility] Name: Cata Murray Age: 28 yrs Sex: Female : 1990 Arrival Date: 05/03/2019 Time: 19:19 Bed 24 Private MD: ED Physician Frankie Boyce HPI: 05/03 19:59 This 28 yrs old Black Female presents to ER via Ambulatory with complaints of Sore jr8 Throat, Cough. 19:59 The patient presents with sore throat. The patient describes throat pain as constant, jr8 raw. Onset: The symptoms/episode began/occurred acutely, 2 day(s) ago. Severity of symptoms: At their worst the symptoms were mild, in the emergency department the symptoms are unchanged. Modifying factors: The symptoms are alleviated by nothing, the symptoms are aggravated by nothing. Associated signs and symptoms: Pertinent positives: chills, cough, fever, rhinorrhea. The patient has not experienced similar symptoms in the past. The patient has not recently seen a physician. 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 - Social history:: Smoking status: Patient uses tobacco products, smokes one-half pack cigarettes per day. - Ebola Screening: : No symptoms or risks identified at this time. ROS: 19:59 Eyes: Negative for injury, pain, redness, and discharge, Neck: Negative for injury, jr8 pain, and swelling, Cardiovascular: Negative for chest pain, palpitations, and edema, Abdomen/GI: Negative for abdominal pain, nausea, vomiting, diarrhea, and constipation, Back: Negative for injury and pain, MS/Extremity: Negative for injury and deformity, Skin: Negative for injury, rash, and discoloration, Neuro: Negative for headache, weakness, numbness, tingling, and seizure. 19:59 Constitutional: Positive for body aches, chills, fever. 19:59 ENT: Positive for rhinorrhea, sinus congestion, sore throat. 19:59 Respiratory: Positive for cough, Negative for dyspnea on exertion, shortness of breath, sputum production, wheezing. Exam: 19:59 Eyes: Pupils equal round and reactive to light, extra-ocular motions intact. Lids and jr8 lashes normal. Conjunctiva and sclera are non-icteric and not injected. Cornea within normal limits. Periorbital areas with no swelling, redness, or edema. ENT: Nares patent. No nasal discharge, no septal abnormalities noted. Tympanic membranes are normal and external auditory canals are clear. Oropharynx with no redness, swelling, or masses, exudates, or evidence of obstruction, uvula midline. Mucous membranes moist. Neck: Trachea midline, no thyromegaly or masses palpated, and no cervical lymphadenopathy. Supple, full range of motion without nuchal rigidity, or vertebral point tenderness. No Meningismus. Cardiovascular: Regular rate and rhythm with a normal S1 and S2. No gallops, murmurs, or rubs. Normal PMI, no JVD. No pulse deficits. Respiratory: Lungs have equal breath sounds bilaterally, clear to auscultation and percussion. No rales, rhonchi or wheezes noted. No increased work of breathing, no retractions or nasal flaring. Abdomen/GI: Soft, non-tender, with normal bowel sounds. No distension or tympany. No guarding or rebound. No evidence of tenderness throughout. Back: No spinal tenderness. No costovertebral tenderness. Full range of motion. Skin: Warm, dry with normal turgor. Normal color with no rashes, no lesions, and no evidence of cellulitis. MS/ Extremity: Pulses equal, no cyanosis. Neurovascular intact. Full, normal range of motion. Neuro: Awake and alert, GCS 15, oriented to person, place, time, and situation. Cranial nerves II-XII grossly intact. Motor strength 5/5 in all extremities. Sensory grossly intact. Cerebellar exam normal. Normal gait. Vital Signs: 19:22 BP 138 / 100; Pulse 88; Resp 16; Temp 97.1; Pulse Ox 100% on R/A; Weight 79.38 kg; la1 Height 5 ft. 4 in. (162.56 cm); 19:45 BP 149 / 99; Pulse 79; Resp 18; Temp 97.9; Pulse Ox 100% on R/A; wh 19:22 Body Mass Index 30.04 (79.38 kg, 162.56 cm) la1 MDM: 19:40 Patient medically screened. jr8 20:11 Data reviewed: vital signs, nurses notes, lab test result(s). Data interpreted: Pulse jr8 oximetry: on room air is 100 %. Interpretation: normal. Counseling: I had a detailed discussion with the patient and/or guardian regarding: the historical points, exam findings, and any diagnostic results supporting the discharge/admit diagnosis, lab results, the need for outpatient follow up, a family practitioner, to return to the emergency department if symptoms worsen or persist or if there are any questions or concerns that arise at home. 05/03 19:30 Order name: Strep; Complete Time: 20:11 05/03 19:30 Order name: Flu; Complete Time: 20:11 05/03 20:09 Order name: Throat Culture EDMS Administered Medications: No medications were administered Disposition: 05/04 06:30 Co-signature as Attending Physician, Frankie Boyce MD. amando Disposition: 05/03/19 20:12 Discharged to Home. Impression: Acute upper respiratory infection, unspecified. - Condition is Stable. - Discharge Instructions: Upper Respiratory Infection, Adult. - Prescriptions for Prednisone 20 mg Oral Tablet - take 1 tablet by ORAL route once daily for 5 days; 5 tablet. Tessalon Perles 100 mg Oral Capsule - take 1 capsule by ORAL route every 8 hours As needed; 15 capsule. Claritin- D 24 Hour 10-240 mg Oral Tablet Sustained Release 24 hr - take 1 tablet by ORAL route once daily As needed; 20 tablet. - Medication Reconciliation Form, Thank You Letter, Antibiotic Education, Prescription Opioid Use form. - Follow up: Private Physician; When: 5 - 6 days; Reason: Recheck today's complaints, Continuance of care, Re-evaluation by your physician. - Problem is new. - Symptoms have improved. Signatures: Dispatcher [employer] EDMS Frankie Boyce MD MD pkBulmaro Gómez PA PA jr8 Petr Bajwa RN RN la1 Jessy Benson Corrections: (The following items were deleted from the chart) 05/03 20:24 20:12 05/03/2019 20:12 Discharged to Home. Impression: Acute upper respiratory wh infection, unspecified. Condition is Stable. Forms are Medication Reconciliation Form, Thank You Letter, Antibiotic Education, Prescription Opioid Use. Follow up: Private Physician; When: 5 - 6 days; Reason: Recheck today's complaints, Continuance of care, Re-evaluation by your physician. Problem is new. Symptoms have improved. jr8
== END 2019-05-03 20:24 | disposition home or self-care (01) ==
LOC: ER 19:15
DX: N39.0 Urinary tract infection, site not specified (principal); F17.210 Nicotine dependence, cigarettes, uncomplicated
CPT/HCPCS: 87070; 87081; 87804; 99283

== ENCOUNTER 2019-07-08 00:59 | Emergency (ER) | payer SELFPAY ==
--- NOTE | 2019-07-08 01:24 | ER ---
Nurse's Notes [facility] Name: Cata Murray Age: 29 yrs Sex: Female : 1990 Arrival Date: 07/08/2019 Time: 01:01 Bed 13 Private MD: Diagnosis: Dental caries Presentation: 07/08 01:01 Presenting complaint: Patient states: I am having swelling and pain that started jb4 earlier today. Its my left lower jaw and it radiates up the side of my face and under my mouth to the right. 01:01 Transition of care: patient was not received from another setting of care. Onset of jb4 symptoms was July 07, 2019. Risk Assessment: Do you want to hurt yourself or someone else? Patient reports no desire to harm self or others. Initial Sepsis Screen: Does the patient meet any 2 criteria? No. Patient's initial sepsis screen is negative. Does the patient have a suspected source of infection? No. Patient's initial sepsis screen is negative. Care prior to arrival: None. 01:01 Method Of Arrival: Ambulatory jb4 01: Acuity: CARLOS 4 jb4 DATA LIBRARIAN: 01: LMP 06/06/2019 jb4 Historical: - Allergies: 01: No Known Allergies; jb4 - Home Meds: 01: None [Active]; jb4 - PMHx: 01: Asthma; jb4 - Immunization history:: Adult Immunizations up to date. - Social history:: Smoking status: Patient uses tobacco products, smokes one-half pack cigarettes per day, Patient uses alcohol, only on a social basis. Patient/guardian denies using street drugs. - Ebola Screening: : No symptoms or risks identified at this time. Screenin:01 Abuse screen: Denies threats or abuse. Nutritional screening: No deficits noted. jb4 Tuberculosis screening: No symptoms or risk factors identified. Fall Risk None identified. Assessment: 01:01 General: Appears in no apparent distress. uncomfortable, Behavior is calm, cooperative, jb4 appropriate for age. Pain: Complains of pain in left cheek Pain radiates to left jain and right mandible Pain currently is 10 out of 10 on a pain scale. Quality of pain is described as stabbing. Neuro: Level of Consciousness is awake, alert, obeys commands, Oriented to person, place, time, situation. Cardiovascular: Patient's skin is warm and dry. Respiratory: Airway is patent Respiratory effort is even, unlabored, Respiratory pattern is regular, symmetrical. GI: No deficits noted. No signs and/or symptoms were reported involving the gastrointestinal system. : No deficits noted. No signs and/or symptoms were reported regarding the genitourinary system. EENT: Throat is clear is pink with gag reflex present. Derm: Skin is intact, Skin is dry, Skin is normal, Skin temperature is warm. Musculoskeletal: Circulation, motion, and sensation intact. Range of motion: intact in all extremities. 01:47 Reassessment: Patient appears in no apparent distress at this time. Patient and/or jb4 family updated on plan of care and expected duration. Pain level reassessed. Patient is alert, oriented x 3, equal unlabored respirations, skin warm/dry/pink. PT verbalized understanding of d/c and follow up instructions. denies questions or concerns. Vital Signs: 01:01 BP 166 / 110; Pulse 71; Resp 18; Temp 98.9(O); Pulse Ox 100% on R/A; Weight 78.93 kg jb4 (R); Height 5 ft. 5 in. (165.10 cm); Pain 10/10; 01:47 BP 157 / 107; Pulse 78; Resp 16; Pulse Ox 100% on R/A; jb4 01:01 Body Mass Index 28.95 (78.93 kg, 165.10 cm) jb4 ED Course: 01:01 Patient arrived in ED. ds1 01:01 Arm band placed on right wrist. jb4 01:01 Patient has correct armband on for positive identification. Bed in low position. Call jb4 light in reach. Side rails up X 1. Pulse ox on. NIBP on. 01:05 True Salcedo RN is Primary Nurse. jb4 01:07 Marcela Santana FNP-C is PHCP. snw 01:07 Mitul Soto MD is Attending Physician. snw 01:15 Triage completed. jb4 01:47 No provider procedures requiring assistance completed. Patient did not have IV access jb4 during this emergency room visit. Administered Medications: 01:40 Drug: morphine 5 mg {Note: Rass score 0.} Route: IM; Site: right gluteus; jb4 01:46 Follow up: Response: No adverse reaction; Pain is decreased; RASS: Alert and Calm (0) jb4 01:40 Drug: Clindamycin 300 mg Route: PO; jb4 01:46 Follow up: Response: Medication administered at discharge. jb4 Outcome: :23 Discharge ordered by . snw 01:47 Discharged to home ambulatory, with family. jb4 01:47 Condition: stable 01:47 Discharge instructions given to patient, family, Instructed on discharge instructions, follow up and referral plans. medication usage, Demonstrated understanding of instructions, follow-up care, medications, Prescriptions given X 3. 01:48 Patient left the ED. jb4 Signatures: Marcela Santana, SERVICE CREW SUPERVISOR-C SERVICE CREW SUPERVISOR-CsnJennifer Narvaez ds1 True Salcedo, RN RN jb4 Corrections: (The following items were deleted from the chart) 01:47 01:47 Reassessment: Patient appears in no apparent distress at this time. Patient jb4 and/or family updated on plan of care and expected duration. Pain level reassessed. Patient is alert, oriented x 3, equal unlabored respirations, skin warm/dry/pink. PT verbalized understanding of d/c and follow up instructions. jb4
--- NOTE | 2019-07-08 01:24 | EDPHYS ---
Physician Documentation [facility] Name: Cata Murray Age: 29 yrs Sex: Female : 1990 Arrival Date: 07/08/2019 Time: 01:01 Bed 13 Private MD: ED Physician Mitul Soto HPI: 07/08 01:29 This 29 yrs old Black Female presents to ER via Ambulatory with complaints of Facial snw Swelling. 01:29 The patient presents with broken tooth/teeth, pain, swelling. The problem is located in snw the upper left second molar, upper left third molar and lower left third molar. Onset: The symptoms/episode began/occurred gradually, 2 day(s) ago, and became worse and became persistent. Duration: The symptoms are continuous. Associated signs and symptoms: Pertinent positives: inability to eat, pain, swelling, facial, mandibular. Severity of symptoms: At their worst the symptoms were moderate, severe. It is unknown whether or not the patient has had similar symptoms in the past. It is unknown whether or not the patient has recently seen a physician. 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 - Social history:: Smoking status: Patient uses tobacco products, smokes one-half pack cigarettes per day, Patient uses alcohol, only on a social basis. Patient/guardian denies using street drugs. - Ebola Screening: : No symptoms or risks identified at this time. ROS: 01:28 Constitutional: Negative for fever, chills, and weight loss, Eyes: Negative for injury, snw pain, redness, and discharge, Neck: Negative for injury, pain, and swelling, Cardiovascular: Negative for chest pain, palpitations, and edema, Respiratory: Negative for shortness of breath, cough, wheezing, and pleuritic chest pain, Abdomen/GI: Negative for abdominal pain, nausea, vomiting, diarrhea, and constipation, Back: Negative for injury and pain, : Negative for injury, bleeding, discharge, and swelling, MS/Extremity: Negative for injury and deformity, Skin: Negative for injury, rash, and discoloration, Neuro: Negative for headache, weakness, numbness, tingling, and seizure, Psych: Negative for depression, anxiety, suicide ideation, homicidal ideation, and hallucinations. 01:28 ENT: Positive for dental pain, Teeth pain left facial pain. Exam: 01:25 Constitutional: This is a well developed, well nourished patient who is awake, alert, snw and in no acute distress. Head/Face: Normocephalic, atraumatic. Eyes: Pupils equal round and reactive to light, extra-ocular motions intact. Lids and lashes normal. Conjunctiva and sclera are non-icteric and not injected. Cornea within normal limits. Periorbital areas with no swelling, redness, or edema. ENT: Nares patent. No nasal discharge, no septal abnormalities noted. Tympanic membranes are normal and external auditory canals are clear. Oropharynx with no redness, +swelling, no masses, exudates, or evidence of obstruction, uvula midline. Mucous membranes moist. upper wisdom tooth with limited space, tender, + caries to back upper left molar, + dental caires to mandibular molar. no trismus, no visible abscess, + tenderness to left face with radiation to left ear and mandible Neck: Trachea midline, no thyromegaly or masses palpated, and no cervical lymphadenopathy. Supple, full range of motion without nuchal rigidity, or vertebral point tenderness. No Meningismus. Chest/axilla: Normal chest wall appearance and motion. Nontender with no deformity. No lesions are appreciated. Cardiovascular: Regular rate and rhythm with a normal S1 and S2. No gallops, murmurs, or rubs. Normal PMI, no JVD. No pulse deficits. Respiratory: Lungs have equal breath sounds bilaterally, clear to auscultation and percussion. No rales, rhonchi or wheezes noted. No increased work of breathing, no retractions or nasal flaring. Abdomen/GI: Soft, non-tender, with normal bowel sounds. No distension or tympany. No guarding or rebound. No evidence of tenderness throughout. Back: No spinal tenderness. No costovertebral tenderness. Full range of motion. Skin: Warm, dry with normal turgor. Normal color with no rashes, no lesions, and no evidence of cellulitis. MS/ Extremity: Pulses equal, no cyanosis. Neurovascular intact. Full, normal range of motion. Neuro: Awake and alert, GCS 15, oriented to person, place, time, and situation. Cranial nerves II-XII grossly intact. Motor strength 5/5 in all extremities. Sensory grossly intact. Cerebellar exam normal. Normal gait. Psych: Awake, alert, with orientation to person, place and time. Behavior, mood, and affect are within normal limits. Vital Signs: 01:01 BP 166 / 110; Pulse 71; Resp 18; Temp 98.9(O); Pulse Ox 100% on R/A; Weight 78.93 kg jb4 (R); Height 5 ft. 5 in. (165.10 cm); Pain 10/10; 01:47 BP 157 / 107; Pulse 78; Resp 16; Pulse Ox 100% on R/A; jb4 01:01 Body Mass Index 28.95 (78.93 kg, 165.10 cm) jb4 MDM: 01:15 Patient medically screened. snw 01:27 Data reviewed: vital signs, nurses notes. Data interpreted: Pulse oximetry: on room air snw is 100 %. Interpretation: normal. Counseling: I had a detailed discussion with the patient and/or guardian regarding: the historical points, exam findings, and any diagnostic results supporting the discharge/admit diagnosis, the presence of at least one elevated blood pressure reading (>120/80) during this emergency department visit, the need for outpatient follow up, to return to the emergency department if symptoms worsen or persist or if there are any questions or concerns that arise at home. Special discussion: I have referred the patient to see his PCP for further evaluation of high blood pressure. Based on the history and exam findings, there is no indication for further emergent testing or inpatient evaluation. I discussed with the patient/guardian the need to see a dentist for further evaluation of the symptoms. I discussed with the patient/guardian the need to see the primary care provider for further evaluation of the symptoms. Administered Medications: 01:40 Drug: morphine 5 mg {Note: Rass score 0.} Route: IM; Site: right gluteus; jb4 01:46 Follow up: Response: No adverse reaction; Pain is decreased; RASS: Alert and Calm (0) [facility] 01:40 Drug: Clindamycin 300 mg Route: PO; jb4 01:46 Follow up: Response: Medication administered at discharge. jb4 Disposition: 03:13 Co-signature as Attending Physician, Mitul Soto MD. rn Disposition: 07/08/19 01:23 Discharged to Home. Impression: Dental caries. - Condition is Stable. - Discharge Instructions: Dental Caries, Adult, Dental Pain, Hypertension, Diet and Dental Disease, Preventive Dental Care, Adult. - Prescriptions for chlorhexidine gluconate 0.12 % Mucous Membrane mouthwash - place 15 milliliter by MUCOUS MEMBRANE route 2 times per day after brushing teeth, swish in mouth for 30 seconds then spit out; 480 milliliter. Clindamycin HCl 300 mg Oral Capsule - take 1 capsule by ORAL route every 6 hours for 10 days; 40 capsule. Diclofenac Sodium 75 mg Oral Tablet Sustained Release - take 1 tablet by ORAL route 2 times per day; 30 tablet. - Work release form, Medication Reconciliation Form, Thank You Letter, Antibiotic Education, Prescription Opioid Use form. - Follow up: Private Physician; When: 1 - 2 days; Reason: Recheck today's complaints, Continuance of care, Re-evaluation by your physician. Follow up: Emergency Department; When: As needed; Reason: Worsening of condition. - Notes: Dental wax Signatures: Marcela Santana, CRITICAL CARE UNIT NURSE-C CRITICAL CARE UNIT NURSE-Csnw Mitul Soto MD MD rn Bryson, James, RN RN jb4 Corrections: (The following items were deleted from the chart) 01:29 01:25 Constitutional: This is a well developed, well nourished patient who is awake, snw alert, and in no acute distress. Head/Face: Normocephalic, atraumatic. Eyes: Pupils equal round and reactive to light, extra-ocular motions intact. Lids and lashes normal. Conjunctiva and sclera are non-icteric and not injected. Cornea within normal limits. Periorbital areas with no swelling, redness, or edema. ENT: Nares patent. No nasal discharge, no septal abnormalities noted. Tympanic membranes are normal and external auditory canals are clear. Oropharynx with no redness, +swelling, no masses, exudates, or evidence of obstruction, uvula midline. Mucous membranes moist. upper wisdom tooth with limited space, tender, + caries to back upper left molar, + dental caires to mandibular molar. Neck: Trachea midline, no thyromegaly or masses palpated, and no cervical lymphadenopathy. Supple, full range of motion without nuchal rigidity, or vertebral point tenderness. No Meningismus. Chest/axilla: Normal chest wall appearance and motion. Nontender with no deformity. No lesions are appreciated. Cardiovascular: Regular rate and rhythm with a normal S1 and S2. No gallops, murmurs, or rubs. Normal PMI, no JVD. No pulse deficits. Respiratory: Lungs have equal breath sounds bilaterally, clear to auscultation and percussion. No rales, rhonchi or wheezes noted. No increased work of breathing, no retractions or nasal flaring. Abdomen/GI: Soft, non-tender, with normal bowel sounds. No distension or tympany. No guarding or rebound. No evidence of tenderness throughout. Back: No spinal tenderness. No costovertebral tenderness. Full range of motion. Skin: Warm, dry with normal turgor. Normal color with no rashes, no lesions, and no evidence of cellulitis. MS/ Extremity: Pulses equal, no cyanosis. Neurovascular intact. Full, normal range of motion. Neuro: Awake and alert, GCS 15, oriented to person, place, time, and situation. Cranial nerves II-XII grossly intact. Motor strength 5/5 in all extremities. Sensory grossly intact. Cerebellar exam normal. Normal gait. Psych: Awake, alert, with orientation to person, place and time. Behavior, mood, and affect are within normal limits. snw 01:48 01:23 07/08/2019 01:23 Discharged to Home. Impression: Dental caries. Condition is jb4 Stable. Forms are Medication Reconciliation Form, Thank You Letter, Antibiotic Education, Prescription Opioid Use. Follow up: Private Physician; When: 1 - 2 days; Reason: Recheck today's complaints, Continuance of care, Re-evaluation by your physician. Follow up: Emergency Department; When: As needed; Reason: Worsening of condition. snw
[2019-07-08] MEDS ORDERED: MORPHINE 2 MG/ML SYR ONE (01:25)
[2019-07-08] MEDS ORDERED: MORPHINE 4 MG/ML SYR ONE (01:26)
[2019-07-08] MEDS ORDERED: CLINDAMYCIN HCL 150 MG CAP ONE (01:26)
[2019-07-08 02:07] VITALS: TEMP 98.9; O2SAT 100
[2019-07-08 02:09] VITALS: BP 157/107
--- OUTSIDE RECORDS SUMMARY | 2019-07-12 02:28 | XMS REPORT ---
:1990 [facility] Address [address] [place] [address] Care Team Providers Name Role Phone Unavailable Unavailable Unavailable Problems This patient has no known problems. Allergies, Adverse Reactions, Alerts This patient has no known allergies or adverse reactions. Medications This patient has no known medications.
== END 2019-07-08 01:48 | disposition home or self-care (01) ==
LOC: ER 00:59
DX: K02.9 Dental caries, unspecified (principal); F17.210 Nicotine dependence, cigarettes, uncomplicated
CPT/HCPCS: 96372; 99283; J2270

== ENCOUNTER 2021-04-04 04:15 | Emergency (ER) | payer BC, SELFPAY ==
--- OUTSIDE RECORDS SUMMARY | 2021-04-04 04:18 | XMS REPORT | Continuity of Care Document ---
:1990 Author Organization [facility] t Address [address] [place] [address] Care Team Providers Name Role Phone Chuyita Butterfield Attending Clinician Problems This patient has no known problems. Allergies, Adverse Reactions, Alerts This patient has no known allergies or adverse reactions. Medications This patient has no known medications. Procedures This patient has no known procedures. Encounters Start End Encounter Admission Attending Care Care Encounter Source Date/Time Date/Time Type Type Clinicians Facility Department ID 2021-04-03 2021-04-03 Office MERT Mcnair [id number] 11:13:47 12:00:19 Visit Monty Boogie WASTE COLLECTOR [id number] [facility] [id number] MATERNAL [id number] & CHILD [address] [place] [address] Results This patient has no known results.
[2021-04-04 04:56] LABS: Absolute Lymphocytes (CBC) 3.1 K/uL (0.7-4.9); Basophils % 0.9 % (0-1.3); Hematocrit 36.8 % (36.0-45.0); Lymphocytes % 40.1 % (15.3-44.8); MPV 7.9 fL (7.6-11.3); RBC Red Blood Cell Count 4.74 M/uL (3.86-4.86)
[2021-04-04 05:02] LABS: Protime INR 0.98
[2021-04-04 05:22] LABS: ALT/SGPT 39 U/L (12-78); Alkaline Phosphatase 73 U/L (45-117); BUN Blood Urea Nitrogen 9 mg/dL (7-18); Bicarbonate 28 mmol/L (21-32); Bilirubin Direct < 0.1 mg/dL (0-0.2); Bilirubin Total 0.1 mg/dL (0.2-1.0); Glucose Level 105 mg/dL (74-106); NT PRO-BNP 16 pg/mL (<125); Protein, Total 7.7 g/dL (6.4-8.2); Sodium Level 142 mmol/L (136-145); Troponin (Emerg Dept Use Only) < 0.02 ng/mL (0.0-0.045)
[2021-04-04 05:27] LABS: AST/SGOT 21 U/L (15-37); Magnesium 2.1 mg/dL (1.8-2.4); Potassium 3.7 mmol/L (3.5-5.1)
[2021-04-04 05:28] LABS: Urine Blood Negative (Negative); Urine Glucose Negative (Negative); Urine Protein Negative (Negative); Urine Specific Gravity 1.025 (1.005-1.030)
[2021-04-04] MEDS ORDERED: ONDANSETRON 4 MG/2 ML VIAL ONE (05:29)
[2021-04-04] MEDS ORDERED: MORPHINE 2 MG/ML SYR ONE (05:29)
[2021-04-04 05:47] LABS: Barbiturates NEGATIVE (NEGATIVE); Benzodiazepines NEGATIVE (NEGATIVE); Cocaine NEGATIVE (NEGATIVE); METHAMPHETAM NEGATIVE (NEGATIVE); Methadone NEGATIVE (NEGATIVE); Opiates NEGATIVE (NEGATIVE); Phencyclidine NEGATIVE (NEGATIVE); THC Cannibis NEGATIVE (NEGATIVE)
--- NOTE | 2021-04-04 07:40 | EKG ---
Test Date: 2021-04-04 Test Time: 04:46:35 Radius Grinder: IZABELLA MEASUREMENT RESULTS: Intervals: Rate: 65 NC: 184 QRSD: 102 QT: 368 QTc: 382 [place]: P: 55 NC: 184 QRS: 37 T: 38 INTERPRETIVE STATEMENTS: Normal sinus rhythm Nonspecific ST abnormality Abnormal ECG Compared to ECG 11/25/2015 08:45:39 No significant changes Electronically Signed On 04-04-21 07:39:38 CDT by Jed Rowe
--- NOTE | 2021-04-04 07:49 | ER ---
Nurse's Notes [facility] Name: Cata Murray Age: 30 yrs Sex: Female : 1990 Arrival Date: 04/04/2021 Time: 04:18 Bed 5 Private MD: Diagnosis: Chest pain, unspecified;Essential (primary) hypertension Presentation: 04/04 04:35 Chief complaint: Patient states: chest pain that started 1 hour ago that radiates into em left shoulder, denies cough or shortness of breath. Coronavirus screen: Client denies travel out of the [place] in the last 14 days. Ebola Screen: Patient negative for fever greater than or equal to 101.5 degrees Fahrenheit, and additional compatible Ebola Virus Disease symptoms Patient denies exposure to infectious person. Patient denies travel to an Ebola-affected area in the 21 days before illness onset. No symptoms or risks identified at this time. Initial Sepsis Screen: Does the patient meet any 2 criteria? No. Patient's initial sepsis screen is negative. Does the patient have a suspected source of infection? No. Patient's initial sepsis screen is negative. Risk Assessment: Do you want to hurt yourself or someone else? Patient reports no desire to harm self or others. Onset of symptoms was April 04, 2021. 04:35 Method Of Arrival: Ambulatory em 04:35 Acuity: CARLOS 3 em Historical: - Allergies: 04:37 No Known Allergies; em - PMHx: 04:37 Asthma; em - PSHx: 04:37 None; em - Immunization history:: Adult Immunizations up to date, Client reports receiving the 2nd dose of the Covid vaccine. - Social history:: Smoking status: Patient reports the use of cigarette tobacco products, smokes one-half pack cigarettes per day. Screenin:30 Abuse screen: Denies threats or abuse. Nutritional screening: No deficits noted. jb4 Tuberculosis screening: No symptoms or risk factors identified. Fall Risk None identified. Assessment: 04:30 General: Appears in no apparent distress. uncomfortable, Behavior is calm, cooperative, jb4 appropriate for age. Pain: Complains of pain in chest Pain does not radiate. Pain currently is 3 out of 10 on a pain scale. at worst was 8 out of 10 on a pain scale. Quality of pain is described as pressure, Pain began 1 hour ago. Neuro: Level of Consciousness is awake, alert, obeys commands, Oriented to person, place, time, situation. Cardiovascular: Patient's skin is warm and dry. Respiratory: Airway is patent Respiratory effort is even, unlabored, Respiratory pattern is regular, symmetrical. GI: No signs and/or symptoms were reported involving the gastrointestinal system. : No signs and/or symptoms were reported regarding the genitourinary system. EENT: No signs and/or symptoms were reported regarding the EENT system. Derm: Skin is intact, Skin is dry, Skin is normal, Skin temperature is warm. Musculoskeletal: Circulation, motion, and sensation intact. Range of motion: intact in all extremities. 05:30 Reassessment: Patient appears in no apparent distress at this time. Patient and/or jb4 family updated on plan of care and expected duration. Pain level reassessed. Patient is alert, oriented x 3, equal unlabored respirations, skin warm/dry/pink. 06:30 Reassessment: Patient appears in no apparent distress at this time. Patient and/or jb4 family updated on plan of care and expected duration. Pain level reassessed. Patient is alert, oriented x 3, equal unlabored respirations, skin warm/dry/pink. 08:16 Reassessment: Patient appears in no apparent distress at this time. Patient and/or jd3 family updated on plan of care and expected duration. Pain level reassessed. Patient is alert, oriented x 3, equal unlabored respirations, skin warm/dry/pink. Patient states feeling better. General: Appears in no apparent distress. comfortable, Behavior is calm, cooperative, appropriate for age. Pain: Complains of pain in chest Quality of pain is described as dull, Is intermittent. Neuro: Level of Consciousness is awake, alert, obeys commands, Oriented to person, place, time, situation. Cardiovascular: Capillary refill < 3 seconds Patient's skin is warm and dry. Rhythm is regular. Respiratory: Airway is patent Respiratory effort is even, unlabored, Respiratory pattern is regular, symmetrical. 08:59 Reassessment: Patient appears in no apparent distress at this time. No changes from jd3 previously documented assessment. Patient and/or family updated on plan of care and expected duration. Pain level reassessed. Patient is alert, oriented x 3, equal unlabored respirations, skin warm/dry/pink. Vital Signs: 04:35 BP 175 / 111; Pulse 81; Resp 16; Pulse Ox 100% on R/A; Weight 86.18 kg (R); Height 5 em ft. 5 in. (165.10 cm); Pain 6/10; 05:52 Temp 98.5; jb4 06:45 BP 141 / 98; Pulse 78; Resp 16; Pulse Ox 98% on R/A; jb4 08:17 BP 148 / 101; Pulse 76; Resp 16 S; Pulse Ox 99% on R/A; jd3 08:59 Pulse 75; Resp 16 S; Pulse Ox 99% on R/A; jd3 04:35 Body Mass Index 31.62 (86.18 kg, 165.10 cm) em ED Course: 04:18 Patient arrived in ED. wm 04:27 Davonte Frausto MD is Attending Physician. [facility] 04:30 Patient has correct armband on for positive identification. Bed in low position. Call jb4 light in reach. Side rails up X 1. matting press tender on. Pulse ox on. NIBP on. 04:30 Initial lab(s) drawn, by md, sent to lab. Inserted saline lock: 18 gauge in right Blood jb4 collected. Patient maintains SpO2 saturation greater than 95% on room air. 04:37 Triage completed. em 04:37 Arm band placed on. em 04:59 XRAY Chest (1 view) In Process Unspecified. EDMS 05:38 True Salcedo, RN is Primary Nurse. jb4 07:09 CT Chest For PE Angio In Process Unspecified. EDMS 07:29 Attending Physician role handed off by Davonte Frausto MD sammy 07:29 Vasiliy Salguero MD is Attending Physician. sammy 07:47 Jed Rowe MD is Referral Physician. sammy 08:59 No provider procedures requiring assistance completed. IV discontinued, intact, jd3 bleeding controlled, No redness/swelling at site. Pressure dressing applied. Administered Medications: 06:45 Drug: Zofran (Ondansetron) 4 mg Route: IVP; Site: right antecubital; jb4 07:40 Follow up: Response: No adverse reaction jd3 06:49 Drug: morphine 2 mg Route: IVP; Site: right antecubital; jb4 07:40 Follow up: Response: No adverse reaction; RASS: Alert and Calm (0) jd3 08:16 Drug: Norvasc (amlodipine) 5 mg Route: PO; jd3 09:00 Follow up: Response: No adverse reaction jd3 08:16 Drug: Aspirin Chewable Tablet 162 mg Route: PO; jd3 09:00 Follow up: Response: No adverse reaction jd3 Outcome: 07:48 Discharge ordered by . sammy 08:59 Discharged to home ambulatory. jd3 08:59 Condition: stable 08:59 Discharge instructions given to patient, Instructed on discharge instructions, follow up and referral plans. medication usage, Demonstrated understanding of instructions, follow-up care, medications, Prescriptions given X 1. 09:01 Patient left the ED. jd3 Signatures: Dispatcher [employer] EDVasiliy Richter MD MD cha Munoz, Edgar, RN RN em Bryson, James, RN RN jb4 Davies, Jonathon, RN RN jd3 Holmes, Maurice, MD MD Mckenna Horner
--- NOTE | 2021-04-04 07:49 | EDPHYS ---
Physician Documentation [facility] Name: Cata Murray Age: 30 yrs Sex: Female : 1990 Arrival Date: 04/04/2021 Time: 04:18 Bed 5 Private MD: ED Physician Vasiliy Salguero HPI: 04/04 04:50 This 30 yrs old Black Female presents to ER via Ambulatory with complaints of Chest mh7 Tightness. 04:50 The patient or guardian reports chest pain that is located primarily in the substernal mh7 area. The pain radiates to the left arm. 05:01 Associated signs and symptoms: Pertinent negatives: abdominal pain, cough, diaphoresis, mh7 dizziness, headache, lower extremity pain, lower extremity swelling, lightheadedness, nausea, near syncope, palpitations, recent travel, shortness of breath, syncope, vomiting. The chest pain is described as Tightness. Duration: The patient or guardian reports multiple episodes, that are intermittent, that wax and wane. Modifying factors: The symptoms are alleviated by nothing. the symptoms are aggravated by movement, palpation of area. Severity of pain: At its worst the pain was moderate today, in the emergency department the pain has improved moderately. Historical: - Allergies: 04:37 No Known Allergies; em - PMHx: 04:37 Asthma; em - PSHx: 04:37 None; em - Immunization history:: Adult Immunizations up to date, Client reports receiving the 2nd dose of the Covid vaccine. - Social history:: Smoking status: Patient reports the use of cigarette tobacco products, smokes one-half pack cigarettes per day. ROS: 04:50 Constitutional: Negative for fever, chills, and weight loss, Eyes: Negative for injury, mh7 pain, redness, and discharge, ENT: Negative for injury, pain, and discharge, Neck: Negative for injury, pain, and swelling, Respiratory: Negative for shortness of breath, cough, wheezing, and pleuritic chest pain, Abdomen/GI: Negative for abdominal pain, nausea, vomiting, diarrhea, and constipation, Back: Negative for injury and pain, : Negative for injury, bleeding, discharge, and swelling, MS/Extremity: Negative for injury and deformity, Skin: Negative for injury, rash, and discoloration, Neuro: Negative for headache, weakness, numbness, tingling, and seizure, Psych: Negative for depression, anxiety, suicide ideation, homicidal ideation, and hallucinations, Allergy/Immunology: Negative for hives, rash, and allergies, Endocrine: Negative for neck swelling, polydipsia, polyuria, polyphagia, and marked weight changes, Hematologic/Lymphatic: Negative for swollen nodes, abnormal bleeding, and unusual bruising. Exam: 04:50 Constitutional: This is a well developed, well nourished patient who is awake, alert, mh7 and in no acute distress. Head/Face: Normocephalic, atraumatic. Eyes: Pupils equal round and reactive to light, extra-ocular motions intact. Lids and lashes normal. Conjunctiva and sclera are non-icteric and not injected. Cornea within normal limits. Periorbital areas with no swelling, redness, or edema. Neck: Trachea midline, no thyromegaly or masses palpated, and no cervical lymphadenopathy. Supple, full range of motion without nuchal rigidity, or vertebral point tenderness. No Meningismus. 04:50 Cardiovascular: Regular rate and rhythm with a normal S1 and S2. No gallops, murmurs, or rubs. Normal PMI, no JVD. No pulse deficits. Respiratory: Lungs have equal breath sounds bilaterally, clear to auscultation and percussion. No rales, rhonchi or wheezes noted. No increased work of breathing, no retractions or nasal flaring. Abdomen/GI: Soft, non-tender, with normal bowel sounds. No distension or tympany. No guarding or rebound. No evidence of tenderness throughout. Back: No spinal tenderness. No costovertebral tenderness. Full range of motion. Skin: Warm, dry with normal turgor. Normal color with no rashes, no lesions, and no evidence of cellulitis. MS/ Extremity: Pulses equal, no cyanosis. Neurovascular intact. Full, normal range of motion. Neuro: Awake and alert, GCS 15, oriented to person, place, time, and situation. Cranial nerves II-XII grossly intact. Motor strength 5/5 in all extremities. Sensory grossly intact. Cerebellar exam normal. Normal gait. Psych: Awake, alert, with orientation to person, place and time. Behavior, mood, and affect are within normal limits. 04:50 Chest/axilla: Inspection: normal, Palpation: tenderness, that is mild, of the mid-sternal area, that totally reproduces the patient's complaints, Axilla: are normal, Lymph nodes: lymphadenopathy is not appreciated. Vital Signs: 04:35 BP 175 / 111; Pulse 81; Resp 16; Pulse Ox 100% on R/A; Weight 86.18 kg (R); Height 5 em ft. 5 in. (165.10 cm); Pain 6/10; 05:52 Temp 98.5; jb4 06:45 BP 141 / 98; Pulse 78; Resp 16; Pulse Ox 98% on R/A; jb4 08:17 BP 148 / 101; Pulse 76; Resp 16 S; Pulse Ox 99% on R/A; jd3 08:59 Pulse 75; Resp 16 S; Pulse Ox 99% on R/A; jd3 04:35 Body Mass Index 31.62 (86.18 kg, 165.10 cm) em MDM: 07:29 Patient medically screened. sammy 07:49 Differential diagnosis: abnormal EKG, acute myocardial infarction, anxiety, chest wall sammy pain, cholecystitis, Cholelithiasis costochondritis, esophagitis, myocarditis, pneumonia, pulmonary embolus, stable angina, thoracic aortic disection, unstable angina. HEART Score: History: Slightly Suspicious (0), ECG: Normal (0), Age: < or = 45 years (0), Risk Factors: 1 or 2 risk factors (1), [Hypertension] Troponin: < or = 1 x Normal Limit (0). The patient's deep vein thrombosis risk score was calculated as follows: Total Score: 0. This patient was found to be at low risk for a deep vein thrombosis by using the Well's assessment criteria. The patient's pulmonary embolism risk score was calculated as follows: Total Score: 0-2 points. This patient was found to be at low risk for a pulmonary embolism by using the Well's assessment criteria. DEIDRE Risk Score: TOTAL SCORE = 0. Data reviewed: vital signs, nurses notes, lab test result(s), EKG, radiologic studies, CT scan, plain films. Data interpreted: pvc monitor: rate is 78 beats/min, rhythm is regular, Pulse oximetry: on room air is 98 %. Test interpretation: by ED physician or midlevel provider: ECG, plain radiologic studies. 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 04/04 04:39 Order name: Basic Metabolic Panel; Complete Time: 05:49 em 04/04 04:39 Order name: CBC with Diff; Complete Time: 05:49 em 04/04 04:39 Order name: LFT's; Complete Time: 05:49 em 04/04 04:39 Order name: Magnesium; Complete Time: 05:49 em 04/04 04:39 Order name: NT PRO-BNP; Complete Time: 05:49 em 04/04 04:39 Order name: PT-INR; Complete Time: 06:17 em 04/04 04:39 Order name: Troponin (emerg Dept Use Only); Complete Time: 05:49 em 04/04 04:57 Order name: UDS 7 04/04 04:58 Order name: Urine Drug Screen; Complete Time: 05:49 EDMS 04/04 05:28 Order name: Urine --Ancillary (enter results) tt3 04/04 05:28 Order name: Urine Dipstick-Ancillary; Complete Time: 05:49 EDMS 04/04 05:53 Order name: D-Dimer; Complete Time: 06:17 EDMS 04/04 07:44 Order name: Troponin (emerg Dept Use Only): now sammy 04/04 04:39 Order name: XRAY Chest (1 view) em 04/04 04:39 Order name: EKG; Complete Time: 04:40 em 04/04 04:39 Order name: Cardiac monitoring; Complete Time: 05:01 em 04/04 04:39 Order name: EKG - Nurse/Tech; Complete Time: 05:01 em 04/04 04:39 Order name: IV Saline Lock; Complete Time: 05:01 em 04/04 04:39 Order name: Labs collected and sent; Complete Time: 05:01 em 04/04 04:39 Order name: O2 Per Protocol; Complete Time: 05:01 em 04/04 04:39 Order name: O2 Sat Monitoring; Complete Time: 05:01 em 04/04 04:57 Order name: Urine Dipstick-Ancillary (obtain specimen); Complete Time: 05:38 [facility] 04/04 04:57 Order name: Urine Test (obtain specimen); Complete Time: 05:38 [facility] 04/04 06:18 Order name: CT Chest For PE Angio; Complete Time: 08:40 [facility] 04/04 07:45 Order name: Troponin (Emerg Dept Use Only); Complete Time: 08:40 EDMS Administered Medications: 06:45 Drug: Zofran (Ondansetron) 4 mg Route: IVP; Site: right antecubital; jb4 07:40 Follow up: Response: No adverse reaction jd3 06:49 Drug: morphine 2 mg Route: IVP; Site: right antecubital; jb4 07:40 Follow up: Response: No adverse reaction; RASS: Alert and Calm (0) jd3 08:16 Drug: Norvasc (amlodipine) 5 mg Route: PO; jd3 09:00 Follow up: Response: No adverse reaction jd3 08:16 Drug: Aspirin Chewable Tablet 162 mg Route: PO; jd3 09:00 Follow up: Response: No adverse reaction jd3 Disposition Summary: 04/04/21 07:48 Discharge Ordered Location: Home sammy Problem: new sammy Symptoms: have improved sammy Condition: Stable sammy Diagnosis - Chest pain, unspecified sammy - Essential (primary) hypertension sammy Followup: sammy - With: Private Physician - When: 2 - 3 days - Reason: Recheck today's complaints, Continuance of care, Re-evaluation by your physician Followup: sammy - With: Jed Rowe MD - When: 2 - 3 days - Reason: Recheck today's complaints, Re-evaluation by your physician Discharge Instructions: - Discharge Summary Sheet sammy - Nonspecific Chest Pain, Adult sammy - Hypertension, Adult sammy - Nonspecific Chest Pain, Adult, [id number] sammy - Hypertension, Adult, [id number] sammy - How to Take Your Blood Pressure, [id number] sammy - Aspirin and Your Heart sammy - Managing Your Hypertension sammy Forms: - Medication Reconciliation Form sammy - Thank You Letter sammy - Antibiotic Education sammy - Prescription Opioid Use sammy Prescriptions: - Norvasc 5 mg Oral Tablet - take 1 tablet by ORAL route once daily; 20 tablet; Refills: 0, Product sammy Selection Permitted Signatures: Dispatcher [employer] Vasiliy Moreno MD MD cha Munoz, Edgar RN RN True Escobar RN RN jb4 Festus Johnson RN RN jd3 Davonte Frausto MD MD mh7 Corrections: (The following items were deleted from the chart) 05:53 05:50 D-DIMER+COAG.LAB.DONALDZ ordered. EDMS EDMS
--- NOTE | 2021-04-04 08:25 | RAD REPORT ---
EXAM DESCRIPTION: CT - Chest For Pe Angio - 04/04/2021 7:09 am CLINICAL HISTORY: Chest pain. CHEST PAIN COMPARISON: No comparisons TECHNIQUE: CT angiogram of the pulmonary arteries was performed with MIP. All CT scans are performed using dose optimization technique as appropriate and may include automated exposure control or mA/KV adjustment according to patient size. FINDINGS: No evidence of pulmonary thromboembolism. No acute aortic finding demonstrated. The lungs are clear. No significant pericardial or pleural fluid. No concerning bony finding. IMPRESSION: No evidence of pulmonary thromboembolism. No acute lung findings.
[2021-04-04] MEDS ORDERED: AMLODIPINE 5 MG TAB ONE (08:29)
[2021-04-04] MEDS ORDERED: ASPIRIN 81 MG CHEWABLE TABLET ONE (08:29)
--- NOTE | 2021-04-04 08:57 | RAD REPORT ---
EXAM DESCRIPTION: RAD - Chest Single View - 04/04/2021 4:59 am CLINICAL HISTORY: CHEST PAIN Chest pain. COMPARISON: Chest Single View dated 10/19/2016; CHEST SINGLE VIEW dated 11/25/2015; CHEST PA AND LAT 2 VIEW dated 09/05/2015; CHEST SINGLE VIEW dated 11/29/2014 FINDINGS: Portable technique limits examination quality. The lungs are grossly clear. The heart is normal in size. No displaced fractures. IMPRESSION: No acute intrathoracic process suspected.
[2021-04-04 09:03] LABS: Urine Specific Gravity/Preg 1.025 (1.005-1.030)
[2021-04-04 09:19] VITALS: TEMP 98.5
[2021-04-04 09:22] VITALS: BP 148/101; O2SAT 99
== END 2021-04-04 09:01 | disposition home or self-care (01) ==
LOC: ER 04:15
DX: I10 Essential (primary) hypertension (principal); F17.210 Nicotine dependence, cigarettes, uncomplicated
CPT/HCPCS: 93005; 85025; 80048; 36415; 83735; 81025; 85610; 85379; 80076; 81003; 84484 ×2; 83880; 80307; 71275; 71045; 96375; 96374; 99285; Q9967; J2270; J2405

== ENCOUNTER 2021-05-28 02:44 | Emergency (ER) | payer BC ==
[2021-05-28 03:52] LABS: Absolute Lymphocytes (CBC) 2.8 K/uL (0.7-4.9); Basophils % 0.5 % (0-1.3); Lymphocytes % 47.2 % (15.3-44.8); MPV 7.7 fL (7.6-11.3); RBC Red Blood Cell Count 4.15 M/uL (3.86-4.86)
[2021-05-28 04:14] LABS: BUN Blood Urea Nitrogen 7 mg/dL (7-18); Bicarbonate 26 mmol/L (21-32); Glucose Level 116 mg/dL (74-106); Potassium 3.6 mmol/L (3.5-5.1); Sodium Level 142 mmol/L (136-145)
[2021-05-28 04:23] LABS: Urine Blood Negative (Negative); Urine Glucose Negative (Negative); Urine Protein Negative (Negative); Urine Specific Gravity 1.025 (1.005-1.030)
[2021-05-28 04:53] LABS: Urine Specific Gravity/Preg 1.025 (1.005-1.030)
--- NOTE | 2021-05-28 05:38 | RAD REPORT ---
EXAM DESCRIPTION: CT - Soft Tissue Neck W/Contr - 05/28/2021 5:12 am CLINICAL HISTORY: feels neck swelling, sob COMPARISON: No comparisons TECHNIQUE: During dynamic enhancement using 100 milliliters nonionic IV contrast, axial 5 millimeter thick images of the neck were obtained. All CT scans are performed using dose optimization technique as appropriate and may include automated exposure control or mA/KV adjustment according to patient size. FINDINGS: Intracranial portion the examination is unremarkable. No globe or orbital content abnormal ity. Mastoid air cells, middle ears and paranasal sinuses are clear of any significant finding. No si gnificant bony finding. Hypertrophy of the adenoid tissue seen. Mild, symmetric fullness of the tonsillar tissue as well. Sof t palate is symmetrically thickened. These may be baseline for the patient and not necessarily pathol ogic. Correlation can be made with physical examination. An allergic reaction or infectious etiology are possible. Airway does not appear compromised on CT imaging. Epiglottis is normal. No focal cord abnormality seen. Parapharyngeal fat is normal. Patient has numer ous small reactive type bilateral cervical lymph nodes. Parotid, submandibular and thyroid gland tissues are unremarkable. No vascular abnormality. IMPRESSION: Prominent adenoid, tonsillar and soft palate tissues. Baseline for the patient is unknow n. These findings may all be within range of normal. Edema from allergic reaction or infection would be possible. Correlation is needed with physical exam findings. No airway compromise identified. Small nonspecific bilateral cervical lymph nodes most likely reactive.
--- NOTE | 2021-05-28 05:59 | ER ---
Nurse's Notes [facility] Name: Cata Murray Age: 30 yrs Sex: Female : 1990 Arrival Date: 05/28/2021 Time: 02:47 Bed 6 Private MD: Diagnosis: Acute tonsillitis, unspecified;Panic disorder [episodic paroxysmal anxiety] without agoraphobia Presentation: 05/28 02:53 Chief complaint: Patient states: states that she had been having trouble catching her 3 breath. C/O difficulty taking a deep breath, headache and neck tender to touch. States that was on BP medication, but was taken off due to BP being low. Also states that she is having chest pain, but that maybe due to anxiety; and has not been taking medication for that. Coronavirus screen: Vaccine status: Patient reports receiving the 2nd dose of the covid vaccine. Date December 2020. Ebola Screen: No symptoms or risks identified at this time. Initial Sepsis Screen: Does the patient meet any 2 criteria? No. Patient's initial sepsis screen is negative. Does the patient have a suspected source of infection? No. Patient's initial sepsis screen is negative. Risk Assessment: Do you want to hurt yourself or someone else? Patient reports no desire to harm self or others. Onset of symptoms was May 28, 2021. Care prior to arrival: None. 02:53 Method Of Arrival: Ambulatory [facility] 02:53 Acuity: CARLOS 3 3 Triage Assessment: 02:57 General: Appears in no apparent distress. well groomed, well nourished, Behavior is 3 calm, cooperative, appropriate for age. Pain: Denies pain. Respiratory: Reports shortness of breath Onset: The symptoms/episode began/occurred this morning, the patient has mild shortness of breath. 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 - Social history:: Smoking status: Patient reports the use of cigarette tobacco products, denies chronic smoking, but will smoke occasionally. - Family history:: not pertinent. - Hospitalizations: : No recent hospitalization is reported. Screenin:52 Abuse screen: Denies threats or abuse. Denies injuries from another. Nutritional ms4 screening: No deficits noted. Tuberculosis screening: No symptoms or risk factors identified. Fall Risk None identified. Assessment: 03:51 Reassessment: Patient appears in no apparent distress at this time. No changes from ms4 previously documented assessment. Patient and/or family updated on plan of care and expected duration. Pain level reassessed. Patient is alert, oriented x 3, equal unlabored respirations, skin warm/dry/pink. General: Appears in no apparent distress. Behavior is calm, cooperative, appropriate for age. Pain: Complains of pain in neck. Cardiovascular: No deficits noted. Rhythm is regular. Respiratory: No deficits noted. Airway is patent Respiratory effort is even, unlabored. 03:53 Respiratory: Breath sounds are clear. ms4 Vital Signs: 02:53 BP 137 / 104; Pulse 75; Resp 18; Temp 98.1(O); Pulse Ox 100% on R/A; Weight 88.45 kg; 3 Height 5 ft. 5 in. (165.10 cm); 04:41 BP 144 / 99; Pulse 72; Resp 16; Pulse Ox 100% on R/A; Pain 0/10; ms4 06:09 BP 143 / 98; Pulse 79; Resp 18; Pulse Ox 100% on R/A; Pain 0/10; ms4 02:53 Body Mass Index 32.45 (88.45 kg, 165.10 cm) 3 ED Course: 02:47 Patient arrived in ED. wm 02:57 Triage completed. 3 02:57 Arm band placed on right wrist. 3 03:02 Mitul Soto MD is Attending Physician. rn 03:52 No provider procedures requiring assistance completed. Inserted saline lock: 20 gauge ms4 in right antecubital area, using aseptic technique. Blood collected. 05:12 CT Soft Tissue Neck W/contr In Process Unspecified. EDMS 06:09 IV discontinued, intact, bleeding controlled. ms4 06:10 Patient has correct armband on for positive identification. ms4 Administered Medications: 06:08 Drug: Augmentin (Amoxicillin-Clavulanate) 875 mg Route: PO; ms4 06:08 Drug: predniSONE 60 mg Route: PO; ms4 Outcome: 05:58 Discharge ordered by . rn 06:09 Discharged to home ambulatory. ms4 06:09 Condition: stable 06:09 Discharge instructions given to patient, Instructed on discharge instructions, Demonstrated understanding of instructions, follow-up care, medications, Prescriptions given X 2. 06:10 Patient left the ED. ms4 Signatures: Dispatcher [employer] EDMS Mitul Soto MD MD rn Marsh, Wendy wm Stroud, Mikaela, RN RN ms4 Jeimy Mayer RN RN lh3
--- NOTE | 2021-05-28 05:59 | EDPHYS ---
Physician Documentation [facility] Name: Cata Murray Age: 30 yrs Sex: Female : 1990 Arrival Date: 05/28/2021 Time: 02:47 Bed 6 Private MD: ED Physician Mitul Soto HPI: 05/28 03:23 This 30 yrs old Black Female presents to ER via Ambulatory with complaints of Breathing rn Difficulty. 03:23 The patient has shortness of breath at rest. Onset: The symptoms/episode began/occurred rn just prior to arrival. Duration: The symptoms are continuous, but are markedly better than the original presentation. The patient's shortness of breath is aggravated by nothing, is alleviated by nothing. Associated signs and symptoms: Pertinent negatives: chest pain, non-productive cough, productive cough, diaphoresis, fever, hemoptysis, loss of consciousness. Severity of symptoms: At their worst the symptoms were moderate in the emergency department the symptoms have improved. The patient has experienced a previous episode. The patient has not recently seen a physician. Patient reports laying in bed and felt her throat was closing up on her, shortness of breath, lightheaded, tingling. Has happened once before but did not seek care and went away. Symptoms are almost resolved now without intervention or medication. Denies recent illness or feeling sick. No fever. No trauma. Denies runny nose or cough.. 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 - Social history:: Smoking status: Patient reports the use of cigarette tobacco products, denies chronic smoking, but will smoke occasionally. - Family history:: not pertinent. - Hospitalizations: : No recent hospitalization is reported. ROS: 03:23 Constitutional: Negative for fever, chills, and weight loss, Eyes: Negative for injury, rn pain, redness, and discharge, ENT: Negative for injury, pain, and discharge, Neck: Subjective neck swelling Cardiovascular: Negative for chest pain, palpitations, and edema, Respiratory: Negative for shortness of breath, cough, wheezing, and pleuritic chest pain, Abdomen/GI: Negative for abdominal pain, nausea, vomiting, diarrhea, and constipation, Back: Negative for injury and pain, MS/Extremity: Negative for injury and deformity, Skin: Negative for injury, rash, and discoloration, Neuro: Negative for headache, weakness, numbness, tingling, and seizure. Exam: 03:23 Constitutional: This is a well developed, well nourished patient who is awake, alert, rn and in no acute distress. Head/Face: Normocephalic, atraumatic. Eyes: Periorbital areas with no swelling, redness, or edema. ENT: No stridor, no swelling Neck: Trachea midline, no thyromegaly or masses palpated, and no cervical lymphadenopathy. Supple, full range of motion without nuchal rigidity, or vertebral point tenderness. No Meningismus. Cardiovascular: Regular rate and rhythm. No pulse deficits. Respiratory: No increased work of breathing, no retractions or nasal flaring. Abdomen/GI: Soft, non-tender Skin: Warm, dry with normal turgor. Normal color with no rashes, no lesions, and no evidence of cellulitis. MS/ Extremity: Pulses equal, no cyanosis. Neurovascular intact. Full, normal range of motion. Equal circumference. Neuro: Awake and alert, GCS 15, oriented to person, place, time, and situation. Cranial nerves II-XII grossly intact. Motor strength 5/5 in all extremities. Sensory grossly intact. Cerebellar exam normal. Vital Signs: 02:53 BP 137 / 104; Pulse 75; Resp 18; Temp 98.1(O); Pulse Ox 100% on R/A; Weight 88.45 kg; 3 Height 5 ft. 5 in. (165.10 cm); 04:41 BP 144 / 99; Pulse 72; Resp 16; Pulse Ox 100% on R/A; Pain 0/10; ms4 06:09 BP 143 / 98; Pulse 79; Resp 18; Pulse Ox 100% on R/A; Pain 0/10; ms4 02:53 Body Mass Index 32.45 (88.45 kg, 165.10 cm) 3 MDM: 03:02 Patient medically screened. rn 05:56 Differential diagnosis: Anxiety Reaction tonsillitis, lymphadenitis, pharyngitis. Data rn reviewed: vital signs, nurses notes, lab test result(s), radiologic studies, CT scan, and as a result, I will discharge patient. Data interpreted: Pulse oximetry: on room air is 100 %. Interpretation: normal. Counseling: I had a detailed discussion with the patient and/or guardian regarding: the historical points, exam findings, and any diagnostic results supporting the discharge/admit diagnosis, lab results, radiology results, the need for outpatient follow up, to return to the emergency department if symptoms worsen or persist or if there are any questions or concerns that arise at home. Response to treatment: the patient's symptoms have markedly improved after treatment, and as a result, I will discharge patient. Special discussion: I discussed with the patient/guardian in detail that at this point there is no indication for admission to the hospital. It is understood, however, that if the symptoms persist or worsen the patient needs to return immediately for re-evaluation. 05/28 03:54 Order name: CBC with Automated Diff; Complete Time: 04:13 EDME 05/28 04:09 Order name: Basic Metabolic Panel; Complete Time: 04:43 EDME 05/28 03:23 Order name: CT Soft Tissue Neck W/contr; Complete Time: 05:48 rn 05/28 04:09 Order name: T4 Free; Complete Time: 04:43 EDME 05/28 04:09 Order name: Thyroid Stimulating Hormone; Complete Time: 04:43 EDME 05/28 04:22 Order name: Urine --Ancillary (enter results); Complete Time: 05:02 mw2 05/28 04:22 Order name: Urine --Ancillary (enter results) ms4 05/28 04:23 Order name: Urine Dipstick-Ancillary; Complete Time: 04:43 EDME 05/28 03:23 Order name: IV Start; Complete Time: 03:32 rn 05/28 03:23 Order name: EKG; Complete Time: 04:15 rn 05/28 03:23 Order name: EKG - Nurse/Tech; Complete Time: 03:33 rn 05/28 04:13 Order name: Urine Dipstick-Ancillary (obtain specimen); Complete Time: 04:22 em 05/28 04:13 Order name: Urine Test (obtain specimen); Complete Time: 04:22 em Administered Medications: 06:08 Drug: Augmentin (Amoxicillin-Clavulanate) 875 mg Route: PO; ms4 06:08 Drug: predniSONE 60 mg Route: PO; ms4 Disposition Summary: 05/28/21 05:58 Discharge Ordered Location: Home rn Problem: new rn Symptoms: have improved rn Condition: Stable rn Diagnosis - Acute tonsillitis, unspecified rn - Panic disorder [episodic paroxysmal anxiety] without agoraphobia rn Followup: rn - With: Private Physician - When: As needed - Reason: Recheck today's complaints, Re-evaluation by your physician Discharge Instructions: - Discharge Summary Sheet rn - Panic Attack rn - Tonsillitis rn - Upper Respiratory Infection, Adult rn Forms: - Medication Reconciliation Form rn - Thank You Letter rn - 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 EDMS EDMS 04:30 04:15 CBC+H.LAB.BRZ ordered. EDMS EDMS 04:30 04:15 BASIC METABOLIC PANEL+C.LAB.BRZ ordered. EDMS EDMS 04:30 04:15 THYROID STIMULAT HORMONE+C.LAB.BRZ ordered. EDMS EDMS 05:13 04:09 Soft Tissue Neck W/Contr ordered. EDMS EDMS
[2021-05-28] MEDS ORDERED: AMOX/K CLAV 875 MG TAB ONE (06:27)
[2021-05-28] MEDS ORDERED: predniSONE 20 MG TAB ONE (06:28)
[2021-05-28 06:35] VITALS: TEMP 98.1; O2SAT 100
[2021-05-28 06:37] VITALS: BP 143/98
== END 2021-05-28 06:10 | disposition home or self-care (01) ==
LOC: ER 02:44
DX: F41.0 Panic disorder [episodic paroxysmal anxiety] (principal); J03.90 Acute tonsillitis, unspecified; F17.210 Nicotine dependence, cigarettes, uncomplicated
CPT/HCPCS: 93005; 85025; 80048; 36415; 81025; 84443; 81003; 84439; 70491; 99284; Q9967; J7512

== ENCOUNTER 2021-12-10 11:48 | Emergency (ER) | payer OTHER ==
--- OUTSIDE RECORDS SUMMARY | 2021-12-10 12:00 | XMS REPORT | Continuity of Care Document ---
:1990 Author Organization [facility] t Address [address] [place] [address] Care Team Providers Name Role Phone Mandy Dumont Primary Care Physician Pedro BUSCH Attending Clinician Unavailable Pedro Caro Attending Clinician Mandy SAXENA Attending Clinician Unavailable Chuyita Butterfield Attending Clinician Chuyita STRAUSS Attending Clinician Unavailable Law MORSE Attending Clinician Unavailable Payers Payer Name Policy Type Policy Number Effective Date Expiration Date S matti [facility] - [id number] 2019 00:00:00 OUT OF STATE [facility] [id number] 2016 00:00:00 Problems Condition Condition Condition Status Onset Resolution Last Treating Co mments Source Name Details Category Date Date Treatment Clinician Date History of History of Disease Active 2019-09 U nivers loop loop 0-01 ity [place] electrical [place] excision excision 00 Medica l procedure procedure Bran ch (LEEP) (LEEP) Tobacco Tobacco Disease Active 2016-09 Univers use use 1-14 ity of disorder disorder 00:00: [place] 00 Medical Branch Obesity Obesity Disease Active Overview: Univ ers (BMI (BMI 9-23 Formattin ity of 30-39.9) 30-39.9) 00:00: g of this [place] as 00 note Medical might be Branch different from the original. ICD10 Diagnosis Term Specialist Icu Utility Female Female Disease Active Overview: Trisha cutler infertilit infertilit 9-23 Formattin ity of y y 00:00: g of this [place] 00 note Medical might be Branch different from the original. 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 02/09/2014 colpo done. ALFRED 37/16/201 4- LEEP- ALFRED 3Needs cotesting 03/2015 Irregular Irregular Disease Active Overview: Univers menstrual menstrual 4-17 Formattin i ty of cycle cycle 00:00: g of this [place] 00 note Medical might be Branch different from the original. x3 years. After taking Deposeeki ng . BBT started Allergies, Adverse Reactions, Alerts Allergy Allergy Status Severity Reaction(s) Onset Inactive Treating Comm ents Source Name Type Date Date Clinician NO KNOWN Drug Active Univers ALLERGIE Class ity of S [facility] Social History Social Habit Start Date Stop Date Quantity Comments Source History [facility] o f Alcohol Std Drinks [facility] History [facility] University o f Alcohol Binge [facility] al Branch Exposure to Not sure [facility] SARS-CoV-2 (event) [facility] Cigarette 2021-06-01 2021-06-01 University of pack-years 00:00:00 00:00:00 [facility] Tobacco use and 2021-06-01 2021-06-01 Never used Universit y of exposure 00:00:00 00:00:00 [facility] Alcohol intake 2021-06-01 2021-06-01 Current drinker Unive rsity of 00:00:00 00:00:00 of alcohol [facility] (finding) [place] Cigarettes smoked 2021-06-01 2021-06-01 Univers ity of current (pack per 00:00:00 00:00:00 [facility] ) - Reported Branch History of tobacco 2014-07-15 2021-05-25 Cigarette Smoker University of use 00:00:00 00:00:00 [facility] Tobacco Comment 2017-07-15 2017-07-15 5-6 cigarretes Unive rsity of 00:00:00 00:00:00 per day [facility] Alcohol Comment 2014-04-13 2014-04-13 social only Universi ty of 00:00:00 00:00:00 [facility] Sex Ass[birth year] At [birth year] Universit y of 00:00:00 00:00:00 [facility] Smoking Status Start Date Stop Date Source Former smoker 2021-06-01 00:00:00 2021-06-01 00:00:00 Universi ty of [facility] Medications Ordered Filled Start Stop Current Ordering Indication Dosage Frequency Signature Comments Components Source Medication Medication Date Date Medication? Clinician (SIG) Name Name trazodone 2020-09 Yes Take by Univ ers HCl 0-01 mouth. ity of (TRAZODONE 13:21: [place] ORAL) 25 Medical Branch amoxicillin Yes Univer s -clavulanat 9-30 ity of e 875-125 00:00: [place] mg per 00 Medical tablet Branch methylPREDN Yes [place] [facility] IS[facility]one 4 9-30 ity of mg tablets 00:00: [place] 00 Medical Branch clindamycin 0 1- No [id number] 300mg Take 1 Univers 300 mg 9 10-06 capsule by ity of capsule 00:00: 04:59 mouth 2 [place] 00 :00 (two) Medical times Branch daily for 7 days. amLODIPine Yes 5mg Take 5 mg Un pollo 5 mg tablet 8-04 by mouth ity of 00:00: daily. [place] 00 [facility] Branch lamoTRIgine Yes TAKE 1 Univ ers 25 mg 4-17 TABLET BY ity of tablet 00:00: MOUTH ONCE [place] 00 DAILY FOR Medical 14 DAYS Branch THEN 2 BY MOUTH ONCE DAILY FOR 14 DAYS THEN 4 BY MOUTH ONCE DAILY FOR 14 DAYS chlorhexidi Yes SWISH AND U nivers ne 0.12 % 3-25 SPIT OUT ity of mouthwash 00:00: [facility] Medical EVERY 12 Branch HOURS FOR 14 DAYS amoxicillin Yes TAKE 1 Univ ers 500 mg 3-25 CAPSULE BY ity of capsule 00:00: MOUTH 3 [place] 00 TIMES A Medical DAY FOR 7 Branch DAYS acetaminoph Yes 1{tbl} Take 1 Un pollo en-codeine 3-25 tablet by ity of 300-30 mg 00:00: mouth [place] tablet 00 every 6 Medical (six) Branch hours as needed. Immunizations Ordered Filled Immunization Date Status Comments Sourc e Immunization Name Name SARS-COV-2 COVID-19 2021-01-02 Completed Unive rsity of MODERNA VACCINE 00:00:00 [facility] SARS-COV-2 COVID-19 2020-12-05 Completed Unive rsity of MODERNA VACCINE 00:00:00 [facility] Influenza Virus 2020-05-25 Completed Universit y of Vaccine Quad .5 mL 00:00:00 [place] [facility] 6+ MO [place] Influenza Virus 2017-07-15 Completed Universit y of Vaccine Quad IM 3+ 00:00:00 [facility] TDAP 2017-07-15 Completed University 00:00:00 [facility] Rubella 2007-11-24 Completed University 00:00:00 [facility] Td 2004-09-01 Completed University 00:00:00 [facility] Vital Signs Vital Name Observation Time Observation Value Comments Source Systolic blood 2021-06-01 18:18:00 131 mm[Hg] [place] [facility] pressure [facility] Diastolic blood 2021-06-01 18:18:00 90 mm[Hg] [place] [facility] of pressure [facility] Heart rate 2021-06-01 18:17:00 65 /min [facility] Body temperature 2021-06-01 18:17:00 36.44 Deyanira [facility] Respiratory rate 2021-06-01 18:17:00 18 /min [facility] Body height 2021-06-01 18:17:00 165.1 cm [facility] Body weight 2021-06-01 18:17:00 91.445 kg [facility] BMI 2021-06-01 18:17:00 33.55 kg/m2 [facility] Procedures Procedure Date / Time Performed Performing Clinician Sour e POCT TEST 2021-06-01 18:59:00 [place] Busch [place] [facility] Encounters Start End Encounter Admission Attending Care Care Encounter Source Date/Time Date/Time Type Type Clinicians Facility Department ID 2021-06-15 2021-06-15 Outpatient Chuyita BUSCH [facility] [id number] Univers 12:45:00 12:45:00 [place] flako [facility] 2021-06-15 2021-06-15 Outpatient Chuyita BUSCH [facility] [id number] Univers 12:45:00 12:45:00 [place] [id number] [facility] 2021-06-01 2021-06-01 [facility] [id number] Univers 13:03:53 13:45:00 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 [id number] [facility] [id number] [place] as MATERNAL [id number] Med ical & CHILD [address] [place] [address] 2021-06-01 2021-06-01 Outpatient Chuyita BUSCH [facility] [id number] Univers 13:00:00 13:00:00 [place] [id number] [facility] 2021-06-01 2021-06-01 Outpatient Chuyita BUSCH [facility] [id number] Univers 13:00:00 13:00:00 [place] [facility] 2021-05-18 2021-05-18 Outpatient ODESSA [facility] [id number] Univers 15:45:00 15:45:00 ROLF [id number] ity o f [facility] 2021-05-18 2021-05-18 Outpatient R ODESSA [facility] [id number] Univers 15:45:00 15:45:00 ROLF ity o f [facility] 2021-05-17 2021-05-17 Outpatient Chuyita BUSCH [facility] [id number] Univers 13:00:00 13:00:00 [place] [id number] [facility] 2021-05-17 2021-05-17 Outpatient Chuyita BUSCH [facility] [id number] Univers 13:00:00 13:00:00 [place] meza [facility] 2021-05-15 2021-05-15 Outpatient Chuyita BUSCH [facility] [id number] Univers 13:15:00 13:15:00 [place] [id number] [facility] 2021-05-15 2021-05-15 Outpatient Chuyita BUSCH [facility] [id number] Univers 13:15:00 13:15:00 [place] [facility] 2021-04-03 2021-04-03 [facility] [id number] 11:13:47 12:00:19 Visit Monty Boogie POT BUILDER [id number] [facility] [id number] MATERNAL [id number] & CHILD [address] [place] [address] 2021-04-03 2021-04-03 Outpatient R [facility] [id number] Univers 10:45:00 10:45:00 [id number] [facility] 2021-04-03 2021-04-03 Outpatient Chuyita STRAUSS [facility] [id number] Univers 10:45:00 10:45:00 VALERIEASADRose meza o f [facility] 2021-01-02 2021-01-02 Outpatient Chuyita MORSE [facility] [id number] Univers 16:20:00 16:20:00 BRENDA [facility] 2021-01-02 2021-01-02 [facility] [id number] Univers 13:00:00 13:00:00 [place] [id number] [facility] 2020-12-05 2020-12-05 Outpatient Chuyita MORSE [facility] [id number] Univers 17:30:00 17:30:00 BRENDA [facility] 2020-06-01 2020-06-01 Outpatient Chuyita UBSCH [facility] [id number] Univers 13:30:00 13:30:00 [place] [facility] 2020-06-01 2020-06-01 Outpatient Chuyita BUSCH [facility] [id number] Univers 13:30:00 13:30:00 [place] [facility] 2020-05-25 2020-05-25 Outpatient Chuyita BUSCH [facility] [id number] Univers 10:45:00 10:45:00 [place] meza [facility] 2020-05-25 2020-05-25 Outpatient R [facility] [id number] Univers 10:15:00 10:15:00 [id number] susana [facility] 2020-02-24 2020-02-24 Outpatient R AKINSIPE, [facility] [id number] Univers 10:30:00 10:30:00 ROLF [id number] [facility]fl[facility] 2020-02-24 2020-02-24 Outpatient R AKINSIPE, [facility] [id number] Univers 10:30:00 10:30:00 ROLF hurtadoflako [facility] 2020-02-03 2020-02-03 Outpatient R AKINSIPE, [facility] [id number] Univers 09:00:00 09:00:00 ROLF [id number] susana martin [facility] 2020-02-03 2020-02-03 Outpatient R AKINSIPE, [facility] [id number] Univers 09:00:00 09:00:00 ROLF meza [facility] Results Test Description Test Time Test Comments Results Result Comments Source POCT TEST 2021-06-01 18:59:00 Test Item Value Reference Range Interpretation Comme nts POCT PREG (test code = 1605) Negative On board controls acceptable with C Line (test code = 3574) Yes POCT PREG LOT # (test code = 3575) POCT PREG TEST DATE (test code = 3576) [facility]
--- NOTE | 2021-12-10 13:24 | RAD REPORT ---
EXAM DESCRIPTION: RAD - Knee Right 3 View - 12/10/2021 1:18 pm CLINICAL HISTORY: knee pain Pain and swelling COMPARISON: No comparisons FINDINGS: Mild medial compartment space narrowing is seen. No fracture, dislocation or joint effusio n.
--- NOTE | 2021-12-10 13:24 | RAD REPORT ---
EXAM DESCRIPTION: RAD - Ankle Right 3 View - 12/10/2021 1:19 pm CLINICAL HISTORY: ankle pain, fall Pain and swelling COMPARISON: No comparisons FINDINGS: Soft tissue swelling is seen along the lateral aspect of the foot and ankle. Tiny posterio r calcaneal spur. No acute fracture or dislocation.
--- NOTE | 2021-12-10 13:25 | RAD REPORT ---
EXAM DESCRIPTION: RAD - Foot Right 3 View - 12/10/2021 1:19 pm CLINICAL HISTORY: PAIN COMPARISON: No comparisons FINDINGS: Mild soft tissue swelling is seen. No acute fracture or dislocation evident. Tiny posterio r calcaneal spur.
--- NOTE | 2021-12-10 15:17 | ER ---
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 I banged up my jd3 right ankle through about my knee.". Coronavirus screen: At this time, the client does not indicate any symptoms associated with coronavirus-19. Ebola Screen: No symptoms or risks identified at this time. Initial Sepsis Screen: Does the patient meet any 2 criteria? No. Patient's initial sepsis screen is negative. Does the patient have a suspected source of infection? No. Patient's initial sepsis screen is negative. Risk Assessment: Do you want to hurt yourself or someone else? Patient reports no desire to harm self or others. Onset of symptoms was December 10, 2021. 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 - Social history:: Smoking status: Patient reports the use of cigarette tobacco products, denies chronic smoking, but will smoke occasionally. Screenin:13 Abuse screen: Denies threats or abuse. Denies injuries from another. Nutritional ss screening: No deficits noted. Tuberculosis screening: Never had TB. Fall Risk None identified. Assessment: 15:13 Reassessment: All results back at this time. Awaiting disposition. ss 15:48 Reassessment: crutches unavailable at this time. ss Vital Signs: 12:09 BP 152 / 105; Pulse 75; Resp 18 S; Temp 97.8(TE); Pulse Ox 99% on R/A; Weight 84.82 kg jd3 (R); Height 5 ft. 4 in. (162.56 cm) (R); Pain 6/10; 12:09 Body Mass Index 32.10 (84.82 kg, 162.56 cm) [facility] ED Course: 11:54 Patient arrived in ED. mr 12:01 Roddy Montoya PA is PHCP. [facility] 12:01 Mitul Soto MD is Attending Physician. [facility] 12:08 Triage completed. jd3 12:10 Arm band placed on. jd3 12:14 Nurse Practitioner and/or Physician Health Information Managers to see patient. jd3 12:14 Ice pack to injury. jd3 12:14 Patient placed in waiting room, in a wheelchair, Patient notified of wait time. jd3 13:20 Knee Right 3 View XRAY In Process Unspecified. EDMS 13:20 Ankle Right 3 View XRAY In Process Unspecified. EDMS 13:20 Foot Right 3 View XRAY In Process Unspecified. EDMS 15:13 Katya Cid, RN is Primary Nurse. ss 15:13 Patient has correct armband on for positive identification. Bed in low position. Call ss light in reach. 15:13 No provider procedures requiring assistance completed. 15:15 Marcelo Cruz MD is Referral Physician. [facility] 15:48 Patient did not have IV access during this emergency room visit. Aashish wrap to right ss ankle. Administered Medications: No medications were administered Outcome: 15:16 Discharge ordered by . [facility] 15:48 Discharged to home via wheelchair, with family. 15:48 Condition: good 15:48 Discharge instructions given to patient, family, Instructed on discharge instructions, follow up and referral plans. Demonstrated understanding of instructions, follow-up care, medications, Prescriptions given X 2. 15:50 Patient left the ED. Signatures: Dispatcher [employer] EDMS Roddy Montoya PA PA jmm Rivera, Mary mr Katya Cid, RN RN Festus Johnson RN RN [facility]
--- NOTE | 2021-12-10 15:17 | EDPHYS ---
Physician Documentation [facility] Name: Cata Murray Age: 31 yrs Sex: Female : 1990 Arrival Date: 12/10/2021 Time: 11:54 Bed 10 Private MD: ED Physician Mitul Soto HPI: 12/10 12:08 This 31 yrs old Black Female presents to ER via Ambulatory with complaints of Fall jmm Injury, Ankle Injury. 12:08 Details of fall: The patient fell from an upright position. Onset: The symptoms/episode jmm began/occurred acutely, just prior to arrival. 81-year-old female with a history of asthma the presents emerged part with complaints of right knee pain, right ankle pain right foot pain following a fall which occurred just prior to arrival. Patient states she fell down the steps and rolled her right ankle landed on her right knee. Denies hitting her head.. 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 - Social history:: Smoking status: Patient reports the use of cigarette tobacco products, denies chronic smoking, but will smoke occasionally. ROS: 12:08 Constitutional: Negative for fever, chills, and weight loss, Cardiovascular: Negative jmm for chest pain, palpitations, and edema, Respiratory: Negative for shortness of breath, cough, wheezing, and pleuritic chest pain. 12:08 MS/extremity: Positive for injury or acute deformity, pain. 12:08 All other systems are negative. Exam: 12:08 Constitutional: This is a well developed, well nourished patient who is awake, alert, jmm and in no acute distress. Head/Face: atraumatic. Eyes: EOMI, no conjunctival erythema appreciated ENT: Moist Mucus Membranes Neck: Trachea midline, Supple Chest/axilla: Normal chest wall appearance and motion. Cardiovascular: Regular rate and rhythm. No edema appreciated Respiratory: Normal respirations, no respiratory distress appreciated Abdomen/GI: Non distended, soft Back: Normal ROM Skin: General appearance color normal 12:08 Musculoskeletal/extremity: ROM: intact in all extremities, Right anterior knee is tender to palpation, full range of motion appreciated, no obvious deformity, right lateral and medial malleolus tender to palpation, no obvious deformity, full range of motion noted to the right ankle, left lateral metatarsal tender to palpation, full dorsalis pedis pulse, neurovascular intact.. 12:08 Skin: Appearance: Color: normal in color. 12:08 Neuro: Orientation: is normal, Mentation: is normal, Memory: is normal. 12:08 Psych: Behavior/mood is pleasant, cooperative. Vital Signs: 12:09 BP 152 / 105; Pulse 75; Resp 18 S; Temp 97.8(TE); Pulse Ox 99% on R/A; Weight 84.82 kg jd3 (R); Height 5 ft. 4 in. (162.56 cm) (R); Pain 6/10; 12:09 Body Mass Index 32.10 (84.82 kg, 162.56 cm) jd3 MDM: 12:08 Patient medically screened. [facility] 15:15 Data reviewed: vital signs, nurses notes. Counseling: I had a detailed discussion with [facility] the patient and/or guardian regarding: the historical points, exam findings, and any diagnostic results supporting the discharge/admit diagnosis, radiology results, the need for outpatient follow up, to return to the emergency department if symptoms worsen or persist or if there are any questions or concerns that arise at home. 12/10 12:10 Order name: Knee Right 3 View XRAY; Complete Time: 13:26 [facility] 12/10 12:10 Order name: Ankle Right 3 View XRAY; Complete Time: 13:27 [facility] 12/10 12:10 Order name: Foot Right 3 View XRAY; Complete Time: 13:27 [facility] Administered Medications: No medications were administered Disposition: 19:14 Co-signature as Attending Physician, Mitul Soto MD. rn Disposition Summary: 12/10/21 15:16 Discharge Ordered Location: Home [facility] Condition: Stable [facility] Diagnosis - Unspecified internal derangement of right knee jm - Sprain of ankle jm - Sprain of foot [facility] Followup: [facility] - With: Marcelo Cruz MD - When: 2 - 3 days - Reason: Recheck today's complaints, Continuance of care, Re-evaluation by your physician Discharge Instructions: - Discharge Summary Sheet jmm - Ankle Sprain jmm - Foot Sprain [facility] Forms: - Medication Reconciliation Form jm - Thank You Letter jmm - Antibiotic Education jmm - Prescription Opioid Use jm Prescriptions: - Ibuprofen 800 mg Oral Tablet - take 1 tablet by ORAL route every 8 hours As needed take with food; 30 tablet; jmm Refills: 0, Product Selection Permitted - orphenadrine citrate 100 mg Oral Tablet Sustained Release - take 1 tablet by ORAL route 2 times per day As needed; 20 tablet; Refills: 0, jmm Product Selection Permitted Signatures: Dispatcher [employer] Roddy Harrington PA PA Mitul Barth MD MD rn Davies, Jonathon, RN RN jd3 Corrections: (The following items were deleted from the chart) 15:11 12:08 This 31 yrs old Black Female presents to ER via Ambulatory with complaints of jmm Fall Injury, Ankle Injury. [facility]
[2021-12-10 18:39] VITALS: BP 152/105; TEMP 97.8; O2SAT 99
== END 2021-12-10 15:50 | disposition home or self-care (01) ==
LOC: ER 11:48
DX: M23.91 Unspecified internal derangement of right knee (principal); S93.401A Sprain of unspecified ligament of right ankle, initial encounter; S93.601A Unspecified sprain of right foot, initial encounter; W10.9XXA Fall (on) (from) unspecified stairs and steps, initial encounter; F17.210 Nicotine dependence, cigarettes, uncomplicated
CPT/HCPCS: 99283

== ENCOUNTER 2022-01-18 21:35 | Emergency (ER) | payer OTHER ==
--- OUTSIDE RECORDS SUMMARY | 2022-01-18 21:37 | XMS REPORT | Continuity of Care Document ---
:1990 Author Organization [facility] t Address [address] [place] [address] Care Team Providers Name Role Phone Mandy Dumont Primary Care Physician Pedro BUSCH Attending Clinician Unavailable Jos CROW N Attending Clinician Mandy SAXENA Attending Clinician Unavailable Xu CROW R Attending Clinician Chuyita STRAUSS Attending Clinician Unavailable Law MORSE Attending Clinician Unavailable Payers Payer Name Policy Type Policy Number Effective Date Expiration Date S matti [facility] - [id number] 2019 00:00:00 OUT OF STATE [facility] [id number] 2016 00:00:00 Problems Condition Condition Condition Status [...] use 1-14 ity of disorder disorder 00:00: [place] 00 Medical Branch Obesity Obesity Disease Active Overview: Univ ers (BMI (BMI 9-23 Formattin ity of 30-39.9) 30-39.9) 00:00: g of this [place] as 00 note Medical might be Branch different from the original. 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 02/09/2014 colpo done. ALFRED 37/16/201 4- LEEP- ALFRED 3Needs cotesting 03/2015 Irregular Irregular Disease Active Overview: Univers menstrual menstrual 4-17 Formattin i ty of cycle cycle 00:00: g of this [place] 00 note Medical might be Branch different from the original. x3 years. After taking Deposeeki ng . BBT started Allergies, Adverse Reactions, Alerts Allergy Allergy Status Severity Reaction(s) Onset Inactive Treating Comm ents Source Name Type Date Date Clinician NO KNOWN Drug Active Univers ALLERGIE Class ity of S [facility] Social History Social Habit Start Date Stop Date Quantity Comments Source History [facility] o f Alcohol Frequency [facility] [place] edical Branch History [facility] o f Alcohol Std Drinks [facility] History [facility] o f Alcohol Binge [place] Medic al Branch Exposure to Not sure [facility] SARS-CoV-2 (event) [facility] Cigarette 2021-06-01 2021-06-01 University of pack-years 00:00:00 00:00:00 [facility] Tobacco use and 2021-06-01 2021-06-01 Never used Universit y of exposure 00:00:00 00:00:00 [facility] Alcohol intake 2021-06-01 2021-06-01 Current drinker Unive rsity of 00:00:00 00:00:00 of alcohol [facility] (finding) [place] Cigarettes smoked 2021-06-01 2021-06-01 Univers ity of current (pack per 00:00:00 00:00:00 [facility] ) - Reported Branch History of tobacco 2014-07-15 2021-05-25 Cigarette Smoker University of use 00:00:00 00:00:00 [facility] Tobacco Comment 2017-07-15 2017-07-15 5-6 cigarretes Unive rsity of 00:00:00 00:00:00 per day [facility] Alcohol Comment 2014-04-13 2014-04-13 social only Universi ty of 00:00:00 00:00:00 [facility] Sex Ass[birth year] At [birth year] Universit y of 00:00:00 00:00:00 [facility] Smoking Status Start Date Stop Date Source Former smoker 2021-06-01 00:00:00 2021-06-01 00:00:00 Universi ty of [facility] Medications Ordered Filled Start Stop Current Ordering Indication Dosage Frequency Signature Comments Components Source Medication Medication Date Date Medication? Clinician (SIG) Name Name trazodone 2020-09 Yes Take by Univ ers HCl 0-01 mouth. ity of (TRAZODONE 13:21: [place] ORAL) 25 Medical Branch amoxicillin Yes Univer s -clavulanat 9-30 ity of e 875-125 00:00: [place] mg per 00 Medical tablet Branch methylPREDN Yes Univer s ISolone 4 9-30 ity of mg tablets 00:00: [place] 00 Medical Branch clindamycin 0 2020- No [id number] 300mg Take 1 Univers 300 mg 9-28 10-06 capsule by ity of capsule 00:00: 04:59 mouth 2 [place] 00 :00 (two) Medical times Branch daily for 7 days. amLODIPine Yes 5mg Take 5 mg Un pollo 5 mg tablet 8-04 by mouth ity of 00:00: daily. [place] 00 Medical Branch lamoTRIgine Yes TAKE 1 Univ ers 25 mg 4-17 TABLET BY ity of tablet 00:00: MOUTH ONCE [place] 00 DAILY FOR Medical 14 DAYS Branch THEN 2 BY MOUTH ONCE DAILY FOR 14 DAYS THEN 4 BY MOUTH ONCE DAILY FOR 14 DAYS chlorhexidi Yes SWISH AND U nivers ne 0.12 % 3-25 SPIT OUT ity of mouthwash 00:00: 15 ML BY [facility] 00 MOUTH Medical EVERY 12 Branch [...] Completed Unive rsity of MODERNA VACCINE 00:00:00 [facility] SARS-COV-2 COVID-19 2020-12-05 Completed Unive rsity of MODERNA VACCINE 00:00:00 [facility] Influenza Virus 2020-05-25 Completed Universit y of Vaccine Quad .5 mL 00:00:00 [facility] 6+ MO Branch Influenza Virus 2017-07-15 Completed Universit y of Vaccine Quad IM 3+ 00:00:[address] [facility] TDAP 2017-07-15 Completed University 00:00:00 [facility] Rubella 2007-11-24 Completed University 00:00:00 [facility] Td 2004-09-01 Completed [facility] 00:00:00 [facility] Vital Signs Vital Name Observation Time Observation Value Comments Source Systolic blood 2021-06-01 18:18:00 131 mm[Hg] [facility] Diastolic blood 2021-06-01 18:18:00 90 mm[Hg] [facility] Heart rate 2021-06-01 18:17:00 65 /min [facility] Body temperature 2021-06-01 18:17:00 36.44 Deyanira [facility] Respiratory rate 2021-06-01 18:17:00 18 /min [facility] Body height 2021-06-01 18:17:00 165.1 cm [facility] Body weight 2021-06-01 18:17:00 91.445 kg [facility] BMI 2021-06-01 18:17:00 33.55 kg/m2 [facility] Procedures Procedure Date / Time Performed Performing Clinician Sour e POCT TEST 2021-06-01 18:59:00 [place] [facility] Encounters Start End Encounter Admission Attending Care Care Encounter Source Date/Time Date/Time Type Type Clinicians Facility Department ID 2021-06-15 2021-06-15 Outpatient Chuyita BUSCH [facility] [id number] Univers 12:45:00 12:45:00 [place] flako [facility] 2021-06-15 2021-06-15 Outpatient Chuyita BUSCH [facility] [id number] Univers 12:45:00 12:45:00 [place] [id number] [facility] 2021-06-01 2021-06-01 [facility] [id number] Univers 13:03:53 13:45:00 Visit Jamaica Vasquez [employer] TRAIN[employer] [id number] [facility] [id number] [place] as MATERNAL [id number] Med ical & CHILD [address] [place] [address] 2021-06-01 2021-06-01 Outpatient Chuyita BUSCH [facility] [id number] Univers 13:00:00 13:00:00 [place] [id number] [facility] 2021-06-01 2021-06-01 Outpatient Chuyita BUSCH [facility] [id number] Univers 13:00:00 13:00:00 [place] [facility] 2021-05-18 2021-05-18 Outpatient ODESSA [facility] [id number] Univers 15:45:00 15:45:00 ROLF [id number] [facility]y [facility] 2021-05-18 2021-05-18 Outpatient R ODESSA [facility] [id number] Univers 15:45:00 15:45:00 ROLF [facility]y [facility] 2021-05-17 2021-05-17 Outpatient Chuyita BUSCH [facility] [id number] Univers 13:00:00 13:00:00 [place] [id number] [facility] 2021-05-17 2021-05-17 Outpatient Chuyita BUSCH [facility] [id number] Univers 13:00:00 13:00:00 [place] meza [facility] 2021-05-15 2021-05-15 Outpatient Chuyita BUSCH [facility] [id number] Univers 13:15:00 13:15:00 [place] [id number] [facility] 2021-05-15 2021-05-15 Outpatient Chuyita BUSCH [facility] [id number] Univers 13:15:00 13:15:00 [place] [facility] 2021-04-03 2021-04-03 [facility] [id number] 11:13:47 12:00:19 Visit Monty Boogie [employer] [id number] [facility] [id number] MATERNAL [id number] & CHILD [address] [place] [address] 2021-04-03 2021-04-03 Outpatient R [facility] [id number] Univers 10:45:00 10:45:00 [id number] [facility] 2021-04-03 2021-04-03 Outpatient Chuyita STRAUSS [facility] [id number] Univers 10:45:00 10:45:00 VALERIEASADRose meza o [facility] 2021-01-02 2021-01-02 Outpatient Chuyita MORSE [facility] [id number] Univers 16:20:00 16:20:00 BRENAD [facility] 2021-01-02 2021-01-02 [facility] [id number] Univers 13:00:00 13:00:00 [place] [id number] [facility] 2020-12-05 2020-12-05 Outpatient Chuyita MORSE [facility] [id number] Univers 17:30:00 17:30:00 BRENDA [facility] 2020-06-01 2020-06-01 Outpatient Chuyita BUSCH [facility] [id number] Univers 13:30:00 13:30:00 [place] [facility] 2020-06-01 2020-06-01 Outpatient Chuyita BUSCH [facility] [id number] Univers 13:30:00 13:30:00 [place] [facility] 2020-05-25 2020-05-25 Outpatient Chuyita BUSCH [facility] [id number] Univers 10:45:00 10:45:00 [place] flako [facility] 2020-05-25 2020-05-25 Outpatient R [facility] [id number] Univers 10:15:00 10:15:00 [id number] [facility] 2020-02-24 2020-02-24 Outpatient R AKINSIPE, [facility] [id number] Univers 10:30:00 10:30:00 ROLF [id number] genesisflako o [facility] 2020-02-24 2020-02-24 Outpatient R AKINSIPE, [facility] [id number] Univers 10:30:00 10:30:00 [facility] 2020-02-03 2020-02-03 Outpatient R AKINSIPE, [facility] [id number] Univers 09:00:00 09:00:00 ROLF [id number] genesisflako o [facility] 2020-02-03 2020-02-03 Outpatient R AKINSIPE, [facility] [id number] Univers 09:00:00 09:00:00 ROLF martin [facility] Results Test Description Test Time Test Comments Results Result Comments Source POCT TEST 2021-06-01 18:59:00 Test Item Value Reference Range Interpretation Comme nts POCT PREG (test code = 1605) Negative On board controls acceptable with C Line (test code = 3574) Yes POCT PREG LOT # (test code = 3575) POCT PREG TEST DATE (test code = 3576) [facility]
[2022-01-18 23:26] LABS: Urine Blood Negative (Negative); Urine Glucose Negative (Negative); Urine Protein Negative (Negative)
[2022-01-18 23:42] LABS: Absolute Lymphocytes (CBC) 3.2 K/uL (0.7-4.9); Hematocrit 36.3 % (36.0-45.0); Lymphocytes % 40.3 % (15.3-44.8); MPV 7.9 fL (7.6-11.3)
[2022-01-18 23:54] LABS: Urine Bacteria 20-50 /HPF (<20); Urine RBC NONE SEEN /HPF (NONE SEEN)
[2022-01-19 00:04] LABS: Albumin 3.9 g/dL (3.4-5.0); Bilirubin Total 0.3 mg/dL (0.2-1.0); Potassium 3.7 mmol/L (3.5-5.1); Protein, Total 7.5 g/dL (6.4-8.2)
[2022-01-19 00:32] LABS: White Blood Cell Scan OK (OK)
[2022-01-19 00:33] LABS: Anisocytosis 1+; Blood Morphology Comment NOTED (NOT SEEN); Burr Cells 1+; Elliptocytes 2+; Platelet Estimate ADEQ
[2022-01-19] MEDS ORDERED: NA CHLORIDE 0.9% 1,000 ML ONE (00:39)
[2022-01-19] MEDS ORDERED: MORPHINE 4 MG/ML SYR ONE (00:39)
[2022-01-19] MEDS ORDERED: ONDANSETRON 4 MG/2 ML VIAL ONE (00:39)
--- NOTE | 2022-01-19 03:21 | ER ---
Nurse's Notes [facility] Name: Cata Murray Age: 31 yrs Sex: Female : 1990 Arrival Date: 01/18/2022 Time: 21:38 Bed 17 Private MD: Diagnosis: Abdominal tenderness Presentation: 01/18 22:36 Chief complaint: Patient states: "A couple of days ago I had some light cramping. About tw5 4 hours ago it started to have pain behind my belly button and it shifted to my right side. It is now a shooting pain on my right side. Now if I touch it hurts.". Coronavirus screen: Vaccine status: Patient reports receiving the 2nd dose of the covid vaccine. moderna. Ebola Screen: Patient negative for fever greater than or equal to 101.5 degrees Fahrenheit, and additional compatible Ebola Virus Disease symptoms Patient denies exposure to infectious person. Patient denies travel to an Ebola-affected area in the 21 days before illness onset. Initial Sepsis Screen: Does the patient meet any 2 criteria? No. Patient's initial sepsis screen is negative. Does the patient have a suspected source of infection? Yes: Acute abdominal pain. Risk Assessment: Do you want to hurt yourself or someone else? Patient reports no desire to harm self or others. Onset of symptoms was January 18, 2022 at 19:40. 22:36 Method Of Arrival: Ambulatory tw5 22:36 Acuity: CARLOS 3 tw5 Triage Assessment: 22:40 General: Appears in no apparent distress. Behavior is calm, cooperative, appropriate tw5 for age. Pain: Complains of pain in right lower quadrant Pain currently is 6 out of 10 on a pain scale. GI: Reports lower abdominal pain. 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 - Social history:: Smoking status: Patient reports the use of cigarette tobacco products, smokes one-half pack cigarettes per day. Screenin:42 Abuse screen: Denies threats or abuse. Denies injuries from another. Nutritional tw5 screening: No deficits noted. Tuberculosis screening: No symptoms or risk factors identified. Fall Risk None identified. Assessment: 23:55 Reassessment: Pt placed in room #17. hans 01/19 02:54 Reassessment: Patient appears in no apparent distress at this time. The pt is resting hans and in NAD. She is awaiting results of her exam. Vital Signs: 01/18 22:36 Pulse 86; Resp 18; Temp 98.8(O); Pulse Ox 100% on R/A; Weight 88.45 kg; Height 5 ft. 4 tw5 in. (162.56 cm); Pain 6/10; 22:36 BP 159 / 117; tw5 01/19 00:35 BP 145 / 103; Pulse 65; Resp 18; Pulse Ox 100% on R/A; hans 02:32 BP 143 / 96; Pulse 75; Resp 16; Temp 98.2; Pulse Ox 100% on R/A; hans 04:30 BP 142 / 92; Pulse 72; Resp 18; Temp 98.5; Pulse Ox 100% on R/A; hans 01/18 22:36 Body Mass Index 33.47 (88.45 kg, 162.56 cm) tw5 ED Course: 01/18 21:38 Patient arrived in ED. kz 22:36 Vasiliy Brown PA is PHCP. cp 22:40 Triage completed. tw5 22:40 Arm band placed on right wrist. tw5 22:49 Vasiliy Salguero MD is Attending Physician. cp 23:21 CBC with Diff Sent. tw5 23:21 CMP Sent. tw5 23:21 Lipase Sent. tw5 23:22 Urine Microscopic Only Sent. tw5 23:22 Initial lab(s) drawn, by md, sent to lab. Urine collected: clean catch specimen, clear, tw5 Amount Voided: 200mL. Inserted saline lock: 22 gauge in right antecubital area, using aseptic technique. Blood collected. 01/19 00:02 Lupis Majano, RN is Primary Nurse. hans 00:58 CT Abd/Pelvis - IV Contrast Only In Process Unspecified. EDMS Administered Medications: 01:08 Drug: morphine 4 mg Route: IVP; Site: right antecubital; hans 01:08 Drug: Zofran (Ondansetron) 4 mg Route: IVP; Site: right antecubital; hans 01:09 Drug: NS 0.9% 1000 ml Route: IV; Rate: 1 bolus; Site: right antecubital; hans Outcome: 03:20 Discharge ordered by MD. christianson 04:31 Patient left the ED. hans Signatures: Dispatcher [employer] EDMS Vasiliy Salguero MD MD cha Page, Corey, PA PA cp Wood, Tiffany tw5 Lupis Majano RN RN Debi Natarajan
--- NOTE | 2022-01-19 03:21 | EDPHYS ---
Physician Documentation [facility] Name: Cata Murray Age: 31 yrs Sex: Female : 1990 Arrival Date: 01/18/2022 Time: 21:38 Bed 17 Private MD: ED Physician Vasiliy Salguero HPI: 01/18 22:55 This 31 yrs old Black Female presents to ER via Ambulatory with complaints of Abdominal cp Pain, Nausea. 22:55 The patient presents with abdominal pain in the periumbilical area. right lower cp quadrant. 22:55 Onset: The symptoms/episode began/occurred 4 day(s) ago, and became worse today. The cp symptoms do not radiate. Associated signs and symptoms: Pertinent negatives: nausea, vomiting, and diarrhea, constipation, dysuria, vaginal discharge. The symptoms are described as waxing/waning. Modifying factors: the symptoms are aggravated by movement, pressure. Severity of pain: in the emergency department the pain has improved moderately. 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 - Social history:: Smoking status: Patient reports the use of cigarette tobacco products, smokes one-half pack cigarettes per day. ROS: 23:00 Constitutional: Negative for body aches, chills, fever, poor PO intake. cp 23:00 Respiratory: Negative for cough, shortness of breath, wheezing. cp 23:00 Abdomen/GI: Positive for abdominal pain, nausea, Negative for vomiting, diarrhea, constipation. 23:00 : Negative for urinary symptoms, vaginal bleeding, vaginal discharge. Exam: 23:05 Constitutional: The patient appears in no acute distress, alert, awake. cp 23:05 Head/Face: Normocephalic, atraumatic. cp 23:05 Eyes: Periorbital structures: appear normal, Conjunctiva: normal, no exudate, no injection, Sclera: no appreciated abnormality, Lids and lashes: appear normal, bilaterally. 23:05 ENT: External ear(s): are unremarkable, Nose: is normal, Mouth: Lips: moist, Oral mucosa: moist, Posterior pharynx: Airway: no evidence of obstruction, patent. 23:05 Chest/axilla: Inspection: normal. 23:05 Cardiovascular: Rate: normal. 23:05 Respiratory: the patient does not display signs of respiratory distress, Respirations: normal, no use of accessory muscles, no retractions, labored breathing, is not present, Breath sounds: are clear throughout, no decreased breath sounds. 23:05 Abdomen/GI: Inspection: abdomen appears normal, Bowel sounds: active, all quadrants, Palpation: soft, in all quadrants, moderate abdominal tenderness, in the umbilical area and right lower quadrant, rebound tenderness, is not appreciated, voluntary guarding, is elicited in the umbilical area and right lower quadrant. 23:05 Back: pain, is absent, ROM is normal. Vital Signs: 22:36 Pulse 86; Resp 18; Temp 98.8(O); Pulse Ox 100% on R/A; Weight 88.45 kg; Height 5 ft. 4 tw5 in. (162.56 cm); Pain 6/10; 22:36 BP 159 / 117; tw5 01/19 00:35 BP 145 / 103; Pulse 65; Resp 18; Pulse Ox 100% on R/A; hans 02:32 BP 143 / 96; Pulse 75; Resp 16; Temp 98.2; Pulse Ox 100% on R/A; hans 04:30 BP 142 / 92; Pulse 72; Resp 18; Temp 98.5; Pulse Ox 100% on R/A; hans 01/18 22:36 Body Mass Index 33.47 (88.45 kg, 162.56 cm) tw MDM: 01/18 23:53 Patient medically screened. sammy 01/18 22:43 Order name: CBC with Diff; Complete Time: 02:37 tw01/18 22:43 Order name: CMP; Complete Time: 00:16 tw5 01/18 22:43 Order name: Lipase; Complete Time: 00:16 tw01/18 22:45 Order name: Urine Microscopic Only; Complete Time: 00:16 tw01/19 00:16 Interpretation: Normal except: UBACT 20-50; SQEPI 5-10. cp 01/18 23:26 Order name: Urine Dipstick-Ancillary; Complete Time: 00:16 EDMS 01/18 23:36 Order name: Urine --Ancillary (enter results); Complete Time: 00:16 wm 01/18 22:43 Order name: IV Saline Lock; Complete Time: 23:21 tw5 01/18 22:43 Order name: Labs collected and sent; Complete Time: 23:21 tw5 01/18 22:45 Order name: CT Abd/Pelvis - IV Contrast Only tw 01/18 23:47 Order name: CBC Smear Scan; Complete Time: 02:37 EDRI 01/18 23:58 Order name: Urine Culture EDRI 01/18 22:43 Order name: Urine Dipstick-Ancillary (obtain specimen); Complete Time: 23:22 tw5 01/18 22:43 Order name: Urine Test (obtain specimen); Complete Time: 23:22 tw5 Administered Medications: 01/19 01:08 Drug: morphine 4 mg Route: IVP; Site: right antecubital; hans 01:08 Drug: Zofran (Ondansetron) 4 mg Route: IVP; Site: right antecubital; hans 01:09 Drug: NS 0.9% 1000 ml Route: IV; Rate: 1 bolus; Site: right antecubital; hans Disposition: 00:16 Co-signature as Attending Physician, Vasiliy Salguero MD I agree with the assessment and sammy plan of care. Disposition Summary: 01/19/22 03:20 Discharge Ordered Location: Home sammy Problem: new sammy Symptoms: have improved sammy Condition: Stable sammy Diagnosis - Abdominal tenderness sammy Followup: sammy - With: Private Physician - When: 2 - 3 days - Reason: Recheck today's complaints, Re-evaluation by your physician Discharge Instructions: - Discharge Summary Sheet sammy - Abdominal Pain, Adult sammy - Abdominal Pain, Adult, [id number] sammy Forms: - Medication Reconciliation Form sammy - Thank You Letter sammy - Antibiotic Education sammy - Prescription Opioid Use sammy Prescriptions: - Pepcid 20 mg Oral Tablet - take 1 tablet by ORAL route every 12 hours for 21 days; 40 tablet; Refills: 0, [facility] Product Selection Permitted - Zofran 4 mg Oral Tablet - take 1 tablet by ORAL route every 12 hours As needed; 20 tablet; Refills: 0, [facility] Product Selection Permitted - dicyclomine 20 mg Oral Tablet - take 1 tablet by ORAL route 4 times per day; 28 tablet; Refills: 0, Product sammy Selection Permitted Signatures: Dispatcher [employer] Vasiliy Moreno MD MD cha Page, Corey, PA PA cp Wood, Tiffany tw5 Lupis Majano RN RN bo Brown, Sophia, PA PA sb3
[2022-01-19 04:36] VITALS: O2SAT 100
[2022-01-19 04:42] VITALS: BP 142/92; TEMP 98.5
--- NOTE | 2022-01-20 21:37 | RAD REPORT ---
EXAM DESCRIPTION: CT ABDOMEN PELVIS WITH IV CONTRAST Exam date: January 19, 2022 COMPARISON: None CLINICAL HISTORY: Right lower quadrant abdominal pain TECHNIQUE: Multiple helical axial images were obtained through the abdomen and pelvis using intraven ous contrast. Coronal and sagittal reformatted images were obtained. All CT scans at this facility use dose modulation, iterative reconstruction, and/or weight-based dosi ng when appropriate to reduce radiation dose to as low as reasonably achievable. FINDINGS: Lung bases: Appear unremarkable. Liver: Homogenous attenuation is noted. Gallbladder/biliary: Appears unremarkable Pancreas: Unremarkable. No evidence of ductal enlargement. Possible tiny lipoma in the pancreatic t ail. Spleen: Appears unremarkable. No splenomegaly. Adrenals: Unremarkable. Kidneys and ureters: No evidence of hydronephrosis. Normal enhancement. There is a 1.4 cm cyst in t he midpole of the left kidney. Bladder: Unremarkable. Pelvic organs: Unremarkable. Bowel: No evidence of bowel obstruction. No bowel wall thickening. Appendix appears unremarkable. Vasculature: Unremarkable. Peritoneum: No free air. There is trace free fluid in the pelvis. Lymph nodes: Unremarkable. Soft tissues: Unremarkable. Bones: Unremarkable. IMPRESSION: No evidence for an acute process within the abdomen or pelvis. Electronically signed by: Juan Bowman MD 01/19/2022 1:27 AM CDT Due to temporary technical issues with the PACS/Fluency reporting system, reports are being signed by the in house radiologists without review as a courtesy to insure prompt reporting. The interpreting radiologist is fully responsible for the content of the report.
== END 2022-01-19 04:31 | disposition home or self-care (01) ==
LOC: ER 21:35
DX: R10.813 Right lower quadrant abdominal tenderness (principal); F17.210 Nicotine dependence, cigarettes, uncomplicated
CPT/HCPCS: 87088; 85025; 87086; 36415; 81025; 83690; 80053; 74177; 96375; 96374; 99284; Q9967; J7030; J2405; 81003; 81015

== ENCOUNTER 2022-03-10 05:18 | Emergency (ER) | payer OTHER ==
[2022-03-10 06:09] LABS: Urine Blood Negative (Negative); Urine Glucose Negative (Negative); Urine Protein Negative (Negative); Urine Specific Gravity 1.015 (1.005-1.030)
--- NOTE | 2022-03-10 06:33 | ER ---
Nurse's Notes [facility] Name: Cata Murray Age: 31 yrs Sex: Female : 1990 Arrival Date: 03/10/2022 Time: 05:22 Bed 6 Private MD: Diagnosis: Acute upper respiratory infection, unspecified;Acute pharyngitis, unspecified Presentation: 03/10 05:43 Chief complaint: Chief complaint: Patient states: It hurts to swallow, my chest has a aa9 tight feeling that radiates to my left shoulder and my throat is swollen. It started about 2 hours ago. 05:43 Acuity: CARLOS 3 aa9 05:44 Coronavirus screen: Vaccine status: Patient reports receiving the 2nd dose of the covid aa9 vaccine. 05:44 Ebola Screen: No symptoms or risks identified at this time. Initial Sepsis Screen: Does aa9 the patient meet any 2 criteria? No. Patient's initial sepsis screen is negative. Does the patient have a suspected source of infection? No. Patient's initial sepsis screen is negative. Risk Assessment: Do you want to hurt yourself or someone else? Patient reports no desire to harm self or others. Onset of symptoms was March 10, 2022 at 03:00. 05:44 Method Of Arrival: Ambulatory aa9 Triage Assessment: 05:43 General: Appears Behavior is calm, cooperative. Pain: Complains of pain in chest Pain aa9 radiates to left shoulder. 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 - Social history:: Smoking status: Patient reports the use of cigarette tobacco products, smokes one-half pack cigarettes per day. - Family history:: not pertinent. Screenin:42 Abuse screen: Denies threats or abuse. Denies injuries from another. Nutritional aa9 screening: No deficits noted. Tuberculosis screening: No symptoms or risk factors identified. Fall Risk None identified. Assessment: 05:32 General: states,"My throat feels uncomfortable, when I drink water it hurts. I got a aa9 slight headache, my chest is tight and it radiates to my left shoulder. I had covid before this does not feel like that. This all happened within 2 hours. My throat feels swollen too.". Pain:. Pain: Pain radiates to left clavicle Pain currently is 5 out of 10 on a pain scale. Quality of pain is described as pressure, Pain began 2 hours ago. Is continuous, Alleviated by repositioning. Cardiovascular: Chest pain is described as Pain is 5 out of 10 on a pain scale. radiates to left. 07:00 Reassessment: RECD REPORT FROM XAVI GARLAND. 31YO BF P/W COUGH AND SORE THROAT. DC ON HOLD bp FOR COVID RESULT. 08:09 Reassessment: Patient appears in no apparent distress at this time. Patient and/or jd3 family updated on plan of care and expected duration. Pain level reassessed. Patient is alert, oriented x 3, equal unlabored respirations, skin warm/dry/pink. Vital Signs: 05:38 BP 145 / 99 Sitting; Pulse 80; Resp 16 S; Temp 98.5; Pulse Ox 99% on R/A; Weight 83.91 aa9 kg (R); Height 5 ft. 5 in. (165.10 cm); Pain 5/10; 06:50 BP 135 / 90; Pulse 75; Resp 19 S; Pulse Ox 98% on R/A; as6 08:10 BP 130 / 89; Pulse 76; Resp 17 S; Pulse Ox 98% on R/A; jd3 05:38 Body Mass Index 30.79 (83.91 kg, 165.10 cm) aa9 ED Course: 05:22 Patient arrived in ED. bp1 05:30 Xavi Asher, DADA is Primary Nurse. as6 05:30 Vasiliy Salguero MD is Attending Physician. sammy 05:43 Triage completed. aa9 05:44 Arm band placed on right wrist. aa9 05:45 Patient has correct armband on for positive identification. Bed in low position. Call aa9 light in reach. Side rails up X2. 05:45 Client placed on continuous cardiac and pulse oximetry monitoring. NIBP monitoring aa9 applied. 05:45 Patient maintains SpO2 saturation greater than 95% on room air. aa9 06:31 Jed Rowe MD is Referral Physician. sammy 06:45 Chest Pa And Lat (2 Views) XRAY In Process Unspecified. EDMS 08:09 No provider procedures requiring assistance completed. Patient did not have IV access jd3 during this emergency room visit. Administered Medications: 06:46 Drug: Zithromax (azithromycin) 500 mg Route: PO; aa9 07:40 Follow up: Response: No adverse reaction jd3 Medication: 06:47 VIS not applicable for this client. aa9 Outcome: 06:32 Discharge ordered by MD. christianson 06:47 Condition: stable aa9 08:09 Discharged to home ambulatory. jd3 08:09 Discharge instructions given to patient, Instructed on discharge instructions, follow up and referral plans. medication usage, Demonstrated understanding of instructions, follow-up care, medications, Prescriptions given X 1. 08:11 Patient left the ED. jd3 Signatures: Dispatcher [employer] EDMS Vasiliy Salguero MD MD cha Davies, Jonathon, RN RN jGeraldo Graham RN RN Mirela Whitten Ashby, RN RN as6 Mag Smith RN RN aa9 Corrections: (The following items were deleted from the chart) 05:51 05:43 Chief complaint: aa9 aa9
--- NOTE | 2022-03-10 06:33 | EDPHYS ---
Physician Documentation [facility] Name: Cata Murray Age: 31 yrs Sex: Female : 1990 Arrival Date: 03/10/2022 Time: 05:22 Bed 6 Private MD: ED Physician Vasiliy Salguero HPI: 03/10 06:26 This 31 yrs old Black Female presents to ER via Ambulatory with complaints of Chest sammy Pain > 30 y/o, Difficulty Swallowing, Chills. 06:26 The patient or guardian reports chest pain that is located primarily in the substernal sammy area. The pain does not radiate. Associated signs and symptoms: The patient has no apparent associated signs or symptoms. The chest pain is described as squeezing. Duration: The patient or guardian reports multiple episodes, with no pattern. Severity of pain: At its worst the pain was mild in the emergency department the pain is unchanged. The patient has not experienced similar symptoms in the past. 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 - Social history:: Smoking status: Patient reports the use of cigarette tobacco products, smokes one-half pack cigarettes per day. - Family history:: not pertinent. ROS: 06:26 Constitutional: Negative for fever, chills, and weight loss, Eyes: Negative for injury, sammy pain, redness, and discharge, ENT: Negative for injury, pain, and discharge, Neck: Negative for injury, pain, and swelling, Cardiovascular: Negative for chest pain, palpitations, and edema, Abdomen/GI: Negative for abdominal pain, nausea, vomiting, diarrhea, and constipation, Back: Negative for injury and pain, : Negative for injury, bleeding, discharge, and swelling, MS/Extremity: Negative for injury and deformity, Skin: Negative for injury, rash, and discoloration, Neuro: Negative for headache, weakness, numbness, tingling, and seizure, Psych: Negative for depression, anxiety, suicide ideation, homicidal ideation, and hallucinations, Allergy/Immunology: Negative for hives, rash, and allergies, Endocrine: Negative for neck swelling, polydipsia, polyuria, polyphagia, and marked weight changes, Hematologic/Lymphatic: Negative for swollen nodes, abnormal bleeding, and unusual bruising. 06:26 Respiratory: Positive for cough, with no reported sputum. Exam: 06:26 Constitutional: This is a well developed, well nourished patient who is awake, alert, sammy and in no acute distress. Head/Face: Normocephalic, atraumatic. Eyes: Pupils equal round and reactive to light, extra-ocular motions intact. Lids and lashes normal. Conjunctiva and sclera are non-icteric and not injected. Cornea within normal limits. Periorbital areas with no swelling, redness, or edema. ENT: Nares patent. No nasal discharge, no septal abnormalities noted. Tympanic membranes are normal and external auditory canals are clear. Oropharynx with no redness, swelling, or masses, exudates, or evidence of obstruction, uvula midline. Mucous membranes moist. Neck: Trachea midline, no thyromegaly or masses palpated, and no cervical lymphadenopathy. Supple, full range of motion without nuchal rigidity, or vertebral point tenderness. No Meningismus. Chest/axilla: Normal chest wall appearance and motion. Nontender with no deformity. No lesions are appreciated. Cardiovascular: Regular rate and rhythm with a normal S1 and S2. No gallops, murmurs, or rubs. Normal PMI, no JVD. No pulse deficits. Respiratory: Lungs have equal breath sounds bilaterally, clear to auscultation and percussion. No rales, rhonchi or wheezes noted. No increased work of breathing, no retractions or nasal flaring. Abdomen/GI: Soft, non-tender, with normal bowel sounds. No distension or tympany. No guarding or rebound. No evidence of tenderness throughout. Back: No spinal tenderness. No costovertebral tenderness. Full range of motion. Skin: Warm, dry with normal turgor. Normal color with no rashes, no lesions, and no evidence of cellulitis. MS/ Extremity: Pulses equal, no cyanosis. Neurovascular intact. Full, normal range of motion. Neuro: Awake and alert, GCS 15, oriented to person, place, time, and situation. Cranial nerves II-XII grossly intact. Motor strength 5/5 in all extremities. Sensory grossly intact. Cerebellar exam normal. Normal gait. Psych: Awake, alert, with orientation to person, place and time. Behavior, mood, and affect are within normal limits. 06:26 Musculoskeletal/extremity: DVT Exam: No signs of deep vein thrombosis. no pain, no swelling, no tenderness, negative Homans' sign noted on exam, no appreciated bluish discoloration, no erythema, no increased warmth. 07:01 ECG was reviewed by the Attending Physician. sammy Vital Signs: 05:38 BP 145 / 99 Sitting; Pulse 80; Resp 16 S; Temp 98.5; Pulse Ox 99% on R/A; Weight 83.91 aa9 kg (R); Height 5 ft. 5 in. (165.10 cm); Pain 5/10; 06:50 BP 135 / 90; Pulse 75; Resp 19 S; Pulse Ox 98% on R/A; as6 08:10 BP 130 / 89; Pulse 76; Resp 17 S; Pulse Ox 98% on R/A; jd3 05:38 Body Mass Index 30.79 (83.91 kg, 165.10 cm) aa9 MDM: 05:32 Patient medically screened. sammy 06:28 Differential diagnosis: abnormal EKG, chest wall pain, costochondritis, pneumonia, sammy stable angina, unstable angina. HEART Score: History: Slightly Suspicious (0), ECG: Normal (0), Age: < or = 45 years (0), Risk Factors: No Risk Factors Known (0), Troponin: < or = 1 x Normal Limit (0), Total Score = 0. The patient's deep vein thrombosis risk score was calculated as follows: Total Score: 0. This patient was found to be at low risk for a deep vein thrombosis by using the Well's assessment criteria. The patient's pulmonary embolism risk score was calculated as follows: Total Score: 0-2 points. This patient was found to be at low risk for a pulmonary embolism by using the Well's assessment criteria. DEIDRE Risk Score: TOTAL SCORE = 0. Data reviewed: vital signs, nurses notes, lab test result(s), EKG, radiologic studies, plain films. 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 Test interpretation: by ED physician or midlevel provider: ECG, plain radiologic studies. 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 03/10 06:10 Order name: Urine Dipstick-Ancillary [facility] 03/10 06:10 Order name: Urine --Ancillary (enter results) 2 03/10 06:26 Order name: SARS-COV-2 RT PCR (Document "Date of Onset" if Symptomatic) [facility] 03/10 06:26 Order name: Flu [facility] 03/10 06:26 Order name: Strep [facility] 03/10 07:24 Order name: Throat Culture [facility] 03/10 05:32 Order name: Chest Pa And Lat (2 Views) XRAY [facility] 03/10 05:32 Order name: EKG; Complete Time: 05:32 [facility] 03/10 05:32 Order name: EKG - Nurse/Tech; Complete Time: 05:52 [facility] 03/10 05:32 Order name: Urine Dipstick-Ancillary (obtain specimen); Complete Time: 06:09 [facility] 03/10 05:32 Order name: Urine Test (obtain specimen); Complete Time: 06:09 [facility] EC:01 Rate is 80 beats/min. Rhythm is regular. QRS [place] is Normal. [place] interval is normal. QRS sammy interval is normal. QT interval is normal. No Q waves. T waves are Normal. No ST changes noted. Clinical impression: Normal ECG and No evidence of ischemia. Interpreted by me. Reviewed by me. Administered Medications: 06:46 Drug: Zithromax (azithromycin) 500 mg Route: PO; aa9 07:40 Follow up: Response: No adverse reaction jd3 Disposition Summary: 03/10/22 06:32 Discharge Ordered Location: Home sammy Problem: new sammy Symptoms: have improved sammy Condition: Stable sammy Diagnosis - Acute upper respiratory infection, unspecified sammy - Acute pharyngitis, unspecified sammy Followup: sammy - With: Private Physician - When: 2 - 3 days - Reason: Recheck today's complaints, Continuance of care, Re-evaluation by your physician Followup: sammy - With: Jed Rowe MD - When: 2 - 3 days - Reason: Recheck today's complaints, Continuance of care, Re-evaluation by your physician Discharge Instructions: - Discharge Summary Sheet sammy - Pharyngitis sammy - Upper Respiratory Infection, Adult sammy - Cool Mist Vaporizer sammy - Upper Respiratory Infection, Adult, Mgop-vz-Qnuu sammy - Pharyngitis, Goab-jd-Hgps sammy - Cough, Adult sammy - Aspirin and Your Heart [facility] Forms: - Medication Reconciliation Form sammy - Thank You Letter sammy - Antibiotic Education sammy - Prescription Opioid Use [facility] Prescriptions: - Zithromax Z-[place] 250 mg Oral Tablet - take 1 tablet by ORAL route as directed for 5 days Day 1 - take two (2) tablets [facility] one time. Day 2, 3, 4 , 5 take one (1) tablet once daily.; 6 tablet; Refills: 0, Product Selection Permitted Signatures: Dispatcher [employer] Vasiliy Moreno MD MD cha Avalos, Aylin, RN RN aa9 Festus Johnson RN jd3
[2022-03-10] MEDS ORDERED: AZITHROMYCIN 250 MG TAB ONE (06:51)
[2022-03-10 07:48] LABS: Urine Specific Gravity/Preg 1.015 (1.005-1.030)
[2022-03-10 08:30] VITALS: TEMP 98.5
[2022-03-10 08:36] VITALS: O2SAT 98
[2022-03-10 08:42] VITALS: BP 130/89
--- NOTE | 2022-03-10 08:54 | RAD REPORT ---
EXAM DESCRIPTION: RAD - Chest Pa And Lat (2 Views) - 03/10/2022 6:43 am CLINICAL HISTORY: CHEST PAIN Chest pain. COMPARISON: Chest Single View dated 04/04/2021; Chest Single View dated 10/19/2016; CHEST SINGLE VIEW d ated 11/25/2015; CHEST PA AND LAT 2 VIEW dated 09/05/2015 FINDINGS: The lungs are clear. The heart is normal in size. No displaced fractures. IMPRESSION: No acute or concerning finding suspected.
--- NOTE | 2022-03-11 13:49 | EKG ---
Test Date: 2022-03-10 Test Time: 05:48:12 Dispatcher Ship Pilot: IVY MEASUREMENT RESULTS: Intervals: Rate: 80 MS: 164 QRSD: 106 QT: 362 QTc: 417 Chloride: P: 61 MS: 164 QRS: 21 T: 21 INTERPRETIVE STATEMENTS: Normal sinus rhythm Normal ECG Compared to ECG 05/28/2021 03:35:33 No significant changes Electronically Signed On 03-11-22 13:46:21 CDT by Ayan García
== END 2022-03-10 08:11 | disposition home or self-care (01) ==
LOC: ER 05:18
DX: J06.9 Acute upper respiratory infection, unspecified (principal); J02.9 Acute pharyngitis, unspecified; Z20.822 Contact with and (suspected) exposure to COVID-19; F17.210 Nicotine dependence, cigarettes, uncomplicated
CPT/HCPCS: 93005; 87070; 81025; 87081; 81003; 87804 ×2; 71046; U0003; 99284

== ENCOUNTER 2022-04-09 21:54 | Emergency (ER) | payer OTHER ==
--- OUTSIDE RECORDS SUMMARY | 2022-04-09 21:57 | XMS REPORT | Continuity of Care Document ---
:1990 Author Organization [facility] t Address [address] [place] [address] Care Team Providers Name Role Phone Nina Dumont Primary Care Physician [phone] Nina Dumont Attending Clinician [phone] Robert Attending Clinician Unavailable Monty Butterfield Attending Clinician Robert Admitting Clinician Unavailable Payers Payer Name Policy Type Policy Number Effective Date Expiration Date S ource Problems Condition Condition Condition Status Onset Resolution [...] use 1-14 ity of disorder disorder 00:00: [place] 00 Medical Branch Obesity Obesity Disease Active Overview: Univ ers (BMI (BMI 9-23 Formattin ity of 30-39.9) 30-39.9) 00:00: g of this [place] as 00 note Medical might be Branch different from the original. ICD10 Diagnosis Term Consultant Intern Utility Female Female Disease Active Overview: Univer s infertilit infertilit 9-23 Formattin ity of y y 00:00: g of this [place] 00 note Medical might be Branch different from the original. ICD10 Diagnosis Term Consultant Intern Utility Carcinoma Carcinoma Disease Active Overview: Univers [...] . BBT started Allergies, Adverse Reactions, Alerts This patient has no known allergies or adverse reactions. Social History Social Habit Start Date Stop Date Quantity Comments Source History [facility] o f Alcohol Frequency [facility] Branch History [facility] o f Alcohol Std Drinks [facility] History [facility] o f Alcohol Binge [facility] Branch Exposure to 2022-03-26 2022-04-05 Not sure [facility] SARS-CoV-2 (event) 00:00:00 15:12:00 [facility] Cigarettes smoked 2022-04-05 2022-04-05 Univers ity of current (pack per 00:00:00 00:00:00 [facility] ) - Reported Branch Cigarette 2022-04-05 2022-04-05 University of pack-years 00:00:00 00:00:00 [facility] Tobacco use and 2022-04-05 2022-04-05 Smokeless tobacco Un iversity of exposure 00:00:00 00:00:00 non-user [facility] Alcohol intake 2022-04-05 2022-04-05 Current drinker Unive rsity of 00:00:00 00:00:00 of alcohol [facility] [place] (finding) [place] Tobacco Comment 2022-04-05 2022-04-05 5-6 cigarretes Unive rsity of 00:00:00 00:00:00 per day [facility] History of tobacco 2014-07-15 2021-05-25 Cigarette Smoker University of use 00:00:00 00:00:00 [facility] Alcohol Comment 2014-04-13 2014-04-13 social [facility] ty of 00:00:00 00:00:00 [facility] Sex Ass[birth year] At [birth year] Universit y of 00:00:00 00:00:00 [facility] Smoking Status Start Date Stop Date Source Ex-smoker 2022-04-05 00:00:2022-04-05 00:00:00 [facility] of [facility] Medications Ordered Filled Start Stop Current Ordering Indication Dosage Frequency Signature Comments Components Source Medication Medication Date Date Medication? Clinician (SIG) Name Name metroNIDAZO Yes [id number] 500mg Take 1 Univers LE 500 mg 04-09 tablet by ity o f tablet 00:00: mouth in [place] the Medical morning Branch and 1 tablet in the evening. fluconazole 2021- Yes [id number] 150mg Take 1 Univers (DIFLUCAN) 04-09 tablet by ity of 150 mg 00:00: 04:59 [place] tablet 00 :00 now for 1 Medical dose. Branch trazodone 2020-09 Yes Take by Unive rs HCl 0-01 mouth. ity of (TRAZODONE 13:21: [place] ORAL) 25 Medical Branch trazodone 2020-09 Yes Take by Unive rs HCl 0-01 mouth. ity of (TRAZODONE 13:21: [place] ORAL) 25 Medical Branch amoxicillin Yes Univer s -clavulanat 9-30 ity of e 875-125 00:00: [place] mg per 00 Medical tablet Branch methylPREDN 2020-0 Yes Univer s ISolone 4 9-30 ity of mg tablets 00:00: Medical Branch amoxicillin 2020-0 Yes Univer s -clavulanat 9-30 ity of e 875-125 00:00: [place] mg per 00 Medical tablet Branch methylPREDN 2020-0 Yes Univer s ISolone 4 9-30 ity of mg tablets 00:00: Medical Branch amLODIPine 2020-0 Yes 5mg Take 5 mg Un pollo 5 mg tablet 8-04 by mouth ity of 00:00: daily. [place] [facility] Branch amLODIPine 2021-0 Yes 5mg Take 5 mg Un pollo 5 mg tablet 8-04 by mouth ity of 00:00: daily. [place] 00 Medical Branch lamoTRIgine Yes TAKE 1 Univ ers 25 mg 4-17 TABLET BY ity of tablet 00:00: MOUTH ONCE [place] 00 DAILY FOR Medical 14 DAYS Branch THEN 2 BY MOUTH ONCE DAILY FOR 14 DAYS THEN 4 BY MOUTH ONCE DAILY FOR 14 DAYS lamoTRIgine Yes TAKE 1 Univ ers 25 mg 4-17 TABLET BY ity of tablet 00:00: MOUTH ONCE [place] 00 DAILY FOR Medical 14 DAYS Branch THEN 2 BY MOUTH ONCE DAILY FOR 14 DAYS THEN 4 BY MOUTH ONCE DAILY FOR 14 DAYS chlorhexidi Yes SWISH AND U nivers ne 0.12 % 3-25 SPIT OUT ity of mouthwash 00:00: 15 ML BY [place] [id number] MOUTH Medical EVERY 12 Branch HOURS FOR 14 DAYS amoxicillin Yes TAKE 1 Univ ers 500 mg 3-25 CAPSULE BY ity of capsule 00:00: MOUTH 3 TIMES A Medical DAY FOR 7 Branch DAYS acetaminoph Yes 1{tbl} Take 1 Un pollo en-codeine 3-25 tablet by ity of 300-30 mg 00:00: mouth [place] tablet 00 every 6 Medical (six) Branch hours as needed. chlorhexidi Yes SWISH AND U nivers ne 0.12 % 3-25 SPIT OUT ity of mouthwash 00:00: 15 ML BY [place] [id number] MOUTH Medical EVERY 12 Branch HOURS FOR 14 DAYS amoxicillin Yes TAKE 1 Univ ers 500 mg 3-25 CAPSULE BY ity of capsule 00:00: MOUTH 3 TIMES A Medical DAY FOR 7 Branch DAYS acetaminoph Yes 1{tbl} Take 1 Un pollo en-codeine 3-25 tablet by ity of 300-30 mg 00:00: mouth [place] tablet 00 every 6 Medical (six) Branch hours as needed. Immunizations Ordered Filled Immunization Date Status Comments [facility] [place] [facility] Immunization Name Name SARS-COV-2 COVID-19 2021-01-02 Completed Unive rsity of MODERNA VACCINE 00:00:00 [facility] Branch SARS-COV-2 COVID-19 2021-01-02 Completed Unive rsity of MODERNA VACCINE 00:00:00 [facility] SARS-COV-2 COVID-19 2020-12-05 Completed Unive rsity of MODERNA VACCINE 00:00:00 [facility] SARS-COV-2 COVID-19 2020-12-05 Completed Unive rsity of MODERNA VACCINE 00:00:00 [facility] Influenza Virus 2020-05-25 Completed Universit y of Vaccine Quad .5 mL 00:00:00 [facility] [place] IM 6+ MO Branch Influenza Virus 2020-05-25 Completed Universit y of Vaccine Quad .5 mL 00:00:00 [facility] [place] IM 6+ MO Branch Influenza Virus 2017-07-15 Completed Universit y of Vaccine Quad IM 3+ 00:00:00 [facility] TDAP 2017-07-15 Completed University of 00:00:00 [facility] Influenza Virus 2017-07-15 Completed Universit y of Vaccine Quad IM 3+ 00:00:00 [facility] TDAP 2017-07-15 Completed University of 00:00:00 [facility] Rubella 2007-11-24 Completed University of 00:00:00 [facility] Rubella 2007-11-24 Completed University of 00:00:00 [facility] Td 2004-09-01 Completed University of 00:00:00 [facility] Td 2004-09-01 Completed University of 00:00:00 [facility] Vital Signs Vital Name Observation Time Observation Value Comments Source Systolic blood 2022-04-05 20:13:00 151 mm[Hg] Univer sity of pressure [facility] Diastolic blood 2022-04-05 20:13:00 105 mm[Hg] Unive rsity of pressure [facility] Heart rate 2022-04-05 20:13:00 70 /min [facility] Body temperature 2022-04-05 20:13:00 35.94 Deyanira [facility] ers[facility] Respiratory rate 2022-04-05 20:13:00 16 /min [facility] Body height 2022-04-05 20:13:00 165.1 cm [facility] Body weight 2022-04-05 20:13:00 91.899 kg [facility] BMI 2022-04-05 20:13:00 33.71 kg/m2 [facility] Procedures This patient has no known procedures. 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 [id number] ity of [facility] [id number] [place] as MATERNAL [id number] [facility] CHILD [address] [place] [address] 2022-04-05 2022-04-05 Office Perfectojulius [facility] [id number] Univers 14:30:00 15:48:12 Visit Nina Galvan BASEBALL PITCHER [id number] ity of [facility] [id number] [place] as MATERNAL [id number] [facility] CHILD [address] [place] [address] 2022-03-06 2022-03-06 Outpatient FOG_[place]_ AOSM AOSM [id number] Sharon 05:11:00 05:11:00 Vijaya [id number] [facility] 2022-03-06 2022-03-06 Outpatient FOG_[place]_ AOSM AOSM [id number] Sharon 05:11:00 05:11:00 Vijaya [id number] Ortho pe dic Sports Medicin e 2021-04-03 2021-04-03 [facility] [id number] 11:13:47 12:00:19 Visit Monty Boogie BASEBALL PITCHER [id number] REGIONAL [id number] MATERNAL [id number] & CHILD [address] [place] [address] Results This patient has no known results.
--- NOTE | 2022-04-10 00:17 | ER ---
Nurse's Notes [facility] Name: Cata Murray Age: 31 yrs Sex: Female : 1990 Arrival Date: 04/09/2022 Time: 21:56 Bed 5 Private MD: Diagnosis: Viral syndrome;Headache Presentation: 04/09 22:10 Chief complaint: Patient states: Tested positive for flu B 2 weeks ago, c/o body aches, sm5 night sweats, chills, H/A, nausea and no appetite. Coronavirus screen: Vaccine status: Patient reports receiving the 2nd dose of the covid vaccine. fatigue, headache, nausea. Ebola Screen: No symptoms or risks identified at this time. Initial Sepsis Screen: Does the patient meet any 2 criteria? No. Patient's initial sepsis screen is negative. Does the patient have a suspected source of infection? No. Patient's initial sepsis screen is negative. Risk Assessment: Do you want to hurt yourself or someone else? Patient reports no desire to harm self or others. Onset of symptoms was April 08, 2022. 22:10 Method Of Arrival: Ambulatory [facility] 22:10 Acuity: CARLOS 3 5 Triage Assessment: 22:24 Headache History: Denies prior headaches. General: Appears in no apparent distress. kd3 Behavior is calm, cooperative. Pain: Pain currently is 4 out of 10 on a pain scale. Pain began gradually, Also complains of no other associated symptoms. Neuro: Level of Consciousness is awake, alert, obeys commands, Oriented to person, place, time, situation. Respiratory: Airway is patent Trachea midline Respiratory effort is even, unlabored, Respiratory pattern is regular, symmetrical. 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 - Social history:: Smoking status: Patient reports the use of cigarette tobacco products, 3-4 per day. - Family history:: not pertinent. - Hospitalizations: : No recent hospitalization is reported. Screenin:23 Abuse screen: Denies threats or abuse. Denies injuries from another. Nutritional kd3 screening: No deficits noted. Tuberculosis screening: No symptoms or risk factors identified. 22:23 Fall Risk kd3 Assessment: 22:25 Pain: Complains of pain in headache. Neuro: Level of Consciousness is awake, alert, kd3 obeys commands, Oriented to person, place, time, situation. 23:33 Reassessment: Patient and/or family updated on plan of care and expected duration. Pain kd3 level reassessed. Patient is alert, oriented x 3, equal unlabored respirations, skin warm/dry/pink. Vital Signs: 22:10 BP 153 / 94; Pulse 81; Resp 18; Temp 98.8(O); Pulse Ox 100% on R/A; Weight 90.72 kg sm5 (R); Height 5 ft. 5 in. (165.10 cm) (R); Pain 6/10; 23:33 BP 134 / 97; Pulse 82; Resp 19; Pulse Ox 99% ; kd3 04/10 00:33 Pulse 82; Resp 19; Pulse Ox 100% ; kd3 04/09 22:10 Body Mass Index 33.28 (90.72 kg, 165.10 cm) 5 [place] Coma Score: 00:14 Eye Response: spontaneous(4). Verbal Response: oriented(5). Motor Response: obeys rn commands(6). Total: 15. ED Course: 04/09 21:56 Patient arrived in ED. bp1 21:57 Mitul Soto MD is Attending Physician. rn 21:59 Jennifer Kumar, DADA is Primary Nurse. kd3 22:12 SARS-COV-2 RT PCR (Document "Date of Onset" if Symptomatic) Sent. kd3 22:13 Triage completed. sm5 22:13 Flu Sent. kd3 22:13 Strep Sent. kd3 22:13 Arm band placed on Patient placed in an exam room, on a stretcher, on pulse oximetry. sm5 22:23 No provider procedures requiring assistance completed. kd3 22:23 Patient has correct armband on for positive identification. kd3 04/10 00:33 Patient did not have IV access during this emergency room visit. kd3 Administered Medications: No medications were administered Medication: 04/09 22:25 VIS not applicable for this client. kd3 Outcome: 04/10 00:16 Discharge ordered by . rn 00:33 Discharged to home ambulatory. kd3 00:33 Condition: stable 00:33 Discharge instructions given to patient, Instructed on discharge instructions, Demonstrated understanding of instructions. 00:35 Patient left the ED. kd3 Signatures: Mitul Soto MD MD rn Paniauga, Brittany bp1 Doucette, Kyli RN RN kd3 Kaye Keith, DADA RN sm5 Corrections: (The following items were deleted from the chart) 04/09 22:24 22:23 Fall Risk None identified. IV access (20 points). kd3 kd3
--- NOTE | 2022-04-10 00:17 | EDPHYS ---
Physician Documentation [facility] Name: Cata Murray Age: 31 yrs Sex: Female : 1990 Arrival Date: 04/09/2022 Time: 21:56 Bed 5 Private MD: ED Physician Mitul Soto HPI: 04/09 22:17 This 31 yrs old Black Female presents to ER via Ambulatory with complaints of Headache, rn Decreased Appetite. 22:17 The patient complains of pain to the top of head and forehead. The patient describes rn the headache as aching. 22:17 Onset: The symptoms/episode began/occurred yesterday. Associated signs and symptoms: rn Pertinent positives: weakness, Pertinent negatives: altered mental status, fever, neck stiffness, rash. Severity of symptoms: At its worst the pain was mild, in the emergency department the pain is unchanged. Headache History: Denies prior headaches. The symptoms are alleviated by nothing. the symptoms are aggravated by nothing. The patient has not experienced similar symptoms in the past. The patient has been recently seen by a physician:. Pt reports diagnosed with flu 2 weeks ago, got better, now returns with headache, malaise, muscle aches, decreased appetite. No cough or sob. No abd pain. No vomiting. Reports exposed to someone at work with COVID. Does not feel as bad as when had flu 2 weeks ago.. 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 - Social history:: Smoking status: Patient reports the use of cigarette tobacco products, 3-4 per day. - Family history:: not pertinent. - Hospitalizations: : No recent hospitalization is reported. ROS: 22:17 Constitutional: Negative for fever, and weight loss, + chills Eyes: Negative for rn injury, pain, redness, and discharge, ENT: Negative for injury, pain, and discharge, Neck: Negative for injury, pain, and swelling, Cardiovascular: Negative for chest pain, palpitations, and edema, Respiratory: Negative for shortness of breath, cough, wheezing, and pleuritic chest pain, Abdomen/GI: Negative for abdominal pain, vomiting, diarrhea Back: Negative for injury and pain, : Negative for injury, bleeding, discharge, and swelling, MS/Extremity: Negative for injury and deformity, Skin: Negative for injury, rash, and discoloration, Neuro: Negative for numbness, tingling, and seizure. Exam: 22:17 Constitutional: This is a well developed, well nourished patient who is awake, alert, rn and in no acute distress. Ambulatory to room without difficulty or assistance. Head/Face: Normocephalic, atraumatic. Eyes: Periorbital areas with no swelling, redness, or edema. ENT: no stridor Cardiovascular: Regular rate and rhythm. No pulse deficits. Respiratory: No increased work of breathing, no retractions or nasal flaring. Abdomen/GI: Soft, non-tender Skin: Warm, dry MS/ Extremity: Pulses equal, no cyanosis. Neurovascular intact. Full, normal range of motion. Equal circumference. Neuro: Awake and alert, GCS 15, oriented to person, place, time, and situation. Normal gait. Vital Signs: 22:10 BP 153 / 94; Pulse 81; Resp 18; Temp 98.8(O); Pulse Ox 100% on R/A; Weight 90.72 kg sm5 (R); Height 5 ft. 5 in. (165.10 cm) (R); Pain 6/10; 23:33 BP 134 / 97; Pulse 82; Resp 19; Pulse Ox 99% ; kd3 08 00:33 Pulse 82; Resp 19; Pulse Ox 100% ; kd3 04/09 22:10 Body Mass Index 33.28 (90.72 kg, 165.10 cm) sm5 [place] Coma Score: 00:14 Eye Response: spontaneous(4). Verbal Response: oriented(5). Motor Response: obeys rn commands(6). Total: 15. MDM: 04/09 21:58 Patient medically screened. rn 04/10 00:14 Differential diagnosis: Viral infection, COVID, flu, URI. Data reviewed: vital signs, rn nurses notes, and as a result, I will discharge patient. Counseling: I had a detailed discussion with the patient and/or guardian regarding: the historical points, exam findings, and any diagnostic results supporting the discharge/admit diagnosis, lab results, the need for outpatient follow up, to return to the emergency department if symptoms worsen or persist or if there are any questions or concerns that arise at home. Special discussion: I discussed with the patient/guardian in detail that at this point there is no indication for admission to the hospital. It is understood, however, that if the symptoms persist or worsen the patient needs to return immediately for re-evaluation. ED course: Strep/fu/COVID neg, sounds like viral illness, recommend retesting for COVID since day #1 of symptoms, may be too early to test positive. . 04/09 21:58 Order name: SARS-COV-2 RT PCR (Document "Date of Onset" if Symptomatic); Complete Time: rn 00:14 04/09 21:58 Order name: Flu; Complete Time: 23:42 rn 04/09 21:58 Order name: Strep; Complete Time: 23:42 rn 04/09 23:43 Order name: Throat Culture EDMS Administered Medications: No medications were administered Disposition Summary: 04/10/22 00:16 Discharge Ordered Location: Home rn Problem: new rn Symptoms: have improved rn Condition: Stable rn Diagnosis - Viral syndrome rn - Headache rn Followup: rn - With: Private Physician - When: As needed - Reason: Recheck today's complaints, Re-evaluation by your physician Discharge Instructions: - Discharge Summary Sheet rn - General Headache Without Cause rn - Viral Illness, Adult rn Forms: - Medication Reconciliation Form rn - Thank You Letter rn - Antibiotic criminal defense attorney - Prescription Opioid Use rn - Work release form kd3 Signatures: Dispatcher [employer] EDMS Mitul Soto MD MD rn Mazur, Sarah, RN RN sm5 Corrections: (The following items were deleted from the chart) 04/09 22:18 22:17 Pt reports diagnosed with flu 2 weeks ago, got better, now returns with headache, rn malaise, muscle aches, decreased appetite. No cough or sob. No abd pain. No vomiting. Reports exposed to someone at work with COVID.. rn
[2022-04-10 01:33] VITALS: TEMP 98.8
[2022-04-10 01:35] VITALS: BP 134/97
[2022-04-10 01:37] VITALS: O2SAT 100
== END 2022-04-10 00:35 | disposition home or self-care (01) ==
LOC: ER 21:54
DX: B34.9 Viral infection, unspecified (principal); Z20.822 Contact with and (suspected) exposure to COVID-19; F17.210 Nicotine dependence, cigarettes, uncomplicated
CPT/HCPCS: 87070; 87081; 87804 ×2; U0003; 99283

== ENCOUNTER 2023-07-29 14:16 | Emergency (ER) | payer BC, OTHER ==
--- OUTSIDE RECORDS SUMMARY | 2023-07-29 14:21 | XMS REPORT | Continuity of Care Document ---
:1990 Author Organization [facility] t Address [address] [place] [address]. [address] [place] [address] Care Team Providers Name Role Phone NINA SHEFFIELD Primary Care Physician Unavailable NINA SHEFFIELD Attending Clinician Unavailable EDDIE BELTRAN Attending Clinician Unavailable Lupis Azevedo CNM Attending Clinician Nettie Nina ROMERO Attending Clinician [phone] LUPIS AZEVEDO Attending Clinician Unavailable Provider, [facility] Temp Attending Clinician Unavailable Abe Davila Attending Clinician ABE DAVILA Attending Clinician Unavailable MONTY STRAUSS Attending Clinician Unavailable Doctor Unassigned, [place] Attending Clinician Unavailable MANUEL_Carmen Attending Clinician Unavailable Goldie Luevano Attending Clinician JAMAICA BUSCH Attending Clinician Unavailable Jamaica Caro Attending Clinician Monty Butterfield Attending Clinician BRENDA MORSE Attending Clinician Unavailable Fortunato Lopez DO Attending Clinician Gricelda_ Admitting Clinician Unavailable Payers Payer Name Policy Type Policy Number Effective Date Expiration Date S matti [employer] [place] [id number] 2022 00:00:00 [facility] [id number] 2021 PPO 00:00:00 Problems Condition Condition Condition Status Onset Resolution Last Treating Co mments Source Name Details Category Date Date Treatment Clinician Date BODY ACHE/ BODY Diagnosis Active 2022-11-06 Memoria CHILLS ACHE/ 10-27 07:56:00 l CHILLS 20:00: Antonio Active 00 10/27/2022 [facility] Viral Viral Diagnosis Active 2021-092022-08-19 Mem oria upper upper 2-16 03:22:55 l respirator respirator 00:00: [place] y tract y tract 00 infection infection (disorder) (disorder) Active 08/16/2022 Diagnosis 08/19/2022 [facility] Sinusitis Sinusitis Diagnosis Active 2021-092022-08-19 Memoria (disorder) (disorder) 2-16 03:22:55 l Active 00:00: Kyle 08/16/2022 00 Diagnosis 08/19/2022 [facility] Viral Viral Diagnosis Active 2021-092022-08-19 Mem oria pharyngiti pharyngiti 2-16 03:22:55 l s s 00:00: Antonio (disorder) (disorder) 00 Active 08/16/2022 Diagnosis 08/19/2022 [facility] CONGESTION CONGESTIO Diagnosis Active 2021-092022-12-19 Memoria /UNABLE TO N/UNABLE 2-16 11:14:00 l SWALLOW/LO TO 00:00: Bassem n SS OF SME SWALLOW/LO 00 SS OF SME Active 08/16/2022 [facility] History of History of Disease Active 2019-09 [...] different from the original. 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 02/09/2014 colpo done. ALFRED 37/16/201 4- LEEP- ALFRED 3Needs cotesting 03/2015 Irregular Irregular Disease Active Overview: Univers menstrual menstrual 4-17 Formattin i ty of cycle cycle 00:00: g of this [place] 00 note Medical might be Branch different from the original. x3 years. After taking Deposeeki ng . 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 Chronic Chronic Problem 2021-092022-08-19 2022-08-19 Memoria sinusitis, sinusitis, 2-16 16:05:56 16:05:56 l unspecifie unspecifie 21:38: He rmann d d 00 08/16/2022 08/19/[address] [facility] Acute Acute Problem 2021-092022-08-19 2022-08-19 Memoria pharyngiti pharyngiti 2-16 16:05:56 16:05:56 l s, s, 21:38: Antonio unspecifie unspecifie 00 d d 08/16/2022 08/19/[address] [facility] Acute Acute Diagnosis 2021-092022-08-19 2022-08-19 Memoria pharyngiti pharyngiti 2-16 03:22:55 03:22:55 l s s 21:38: Antonio (disorder) (disorder) 00 08/16/2022 Diagnosis 08/19/2022 [facility] Acute Acute Diagnosis 2021-092022-08-19 2022-08-19 Memoria upper upper 2-16 03:22:55 03:22:55 l respirator respirator 21:38: He rmann y y 00 infection infection (disorder) (disorder) 08/16/2022 Diagnosis 08/19/2022 [facility] Chronic Chronic Diagnosis 2021-092022-08-19 2022-08-19 Memoria sinusitis sinusitis 2-16 03:22:55 03:22:55 l (disorder) (disorder) 21:38: He rmann 08/16/2022 00 Diagnosis 08/19/2022 [facility] Allergies, Adverse Reactions, Alerts Allergy Allergy Status Severity Reaction(s) Onset Inactive Treating Comm ents Source Name Type Date Date Clinician METRONID DRUG Active Diarrhea 2021-09 Univer s AZOLE INGREDI 0-06 ity of 00:00: [address] Metronid Drug Active Nausea 2021-09 Univers azole Intolera and/or 0-06 ity of nce Vomiting 00:00: [address] NO KNOWN Drug Active Univers ALLERGIE Class ity of S [facility] Social History Social Habit Start Date Stop Date Quantity Comments Source History [facility] o f Alcohol Frequency [facility] edical Branch History [facility] o f Alcohol Std Drinks [place] [facility] [place] History [facility] o f Alcohol Binge [facility] al Branch Sexual orientation Univer sity of [facility] Exposure to 2022-10-14 2022-10-24 Not sure University of SARS-CoV-2 (event) 00:00:00 13:22:00 [facility] History of Social 2022-04-05 2022-04-05 Univers ity of function 00:00:00 00:00:00 [facility] History of tobacco 2014-07-15 2021-05-25 Cigarette Smoker University of use 00:00:00 00:00:00 [facility] Alcohol intake 2021-05-18 2021-05-18 Current drinker Unive rsity of 00:00:00 00:00:00 of alcohol [facility] (finding) Branch Cigarettes smoked 2020-05-25 2020-05-25 Univers ity of current (pack per 00:00:00 00:00:00 [facility] ) - Reported Branch Cigarette 2020-05-25 2020-05-25 University of pack-years 00:00:00 00:00:00 [facility] Tobacco use and 2020-05-25 2020-05-25 Smokeless tobacco Un iversity of exposure 00:00:00 00:00:00 non-user [facility] Tobacco Comment 2017-07-15 2017-07-15 5-6 cigarretes Unive rsity of 00:00:00 00:00:00 per day [facility] Alcohol Comment 2014-04-13 2014-04-13 social only Universi ty of 00:00:00 00:00:00 [facility] Sex [birth year] At [birth year] Universit y of 00:00:00 00:00:00 [facility] Smoking Status Start Date Stop Date Source Social History Nnamdi Alvarez Ex-smoker 2022-06-06 00:00:00 2022-06-06 00:00:00 Universi ty of [facility] Smokes tobacco daily 2020-05-25 00:00:00 Univers ity of [facility] Medications Ordered Filled Start Stop Current Ordering Indication Dosage Frequency Signature Comments Components Source Medication Medication Date Date Medication? Clinician (SIG) Name Name boric acid 2022- No [id number] 1{suppo Insert 1 Univers 600 mg 10-28 sitory} Suppositor ity of vaginal 00:00: 04:59 y into [place] suppository 00 :00 vagina at [facility] for 14 days. boric acid 2022- No [id number] 1{suppo Insert 1 Univers 600 mg 2-27 03-14 sitory} Suppositor ity of vaginal 00:00: 04:59 y into [place] suppository 00 :00 vagina at [facility] for 14 days. trazodone 2022- No Take by Univ ers HCl 10-24 02-23 mouth. ity of (TRAZODONE 13:26: 00:00 [place] ORAL) 01 :00 [facility] trazodone 2022- No Take by Univ ers HCl 23 -23 mouth. ity of (TRAZODONE 13:26: 00:00 [place] ORAL) 01 :00 [facility] trazodone 2022- No Take by Univ ers HCl 10-24-23 mouth. 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 ity of (TRAZODONE 14:19: [place] ORAL) 58 [facility] trazodone 2021-09 Yes Take by Unive rs HCl 0-06 mouth. ity of (TRAZODONE 14:19: [place] ORAL) 58 [facility] trazodone 2021-09 Yes Take by Unive rs HCl 0-06 mouth. ity of (TRAZODONE 14:19: [place] ORAL) 58 [facility] Branch metroNIDAZO 0 Yes [id number] 500mg Take 1 Univers LE 500 mg 8-09 tablet by ity o f tablet 00:00: mouth in [place] 00 the Medical morning Branch and 1 tablet in the evening. metroNIDAZO Yes [id number] 500mg Take 1 Univers LE 500 mg 8-09 tablet by ity o f tablet 00:00: mouth in [place] 00 the Medical morning Branch and 1 tablet in the evening. metroNIDAZO 2021- No [id number] 500mg Take 1 Univers LE 500 mg 806-06 tablet by ity of tablet 00:00: 00:00 mouth in [place] 00 :00 the Medical morning Branch and 1 tablet in the evening. metroNIDAZO 2021- No [id number] 500mg Take 1 Univers LE 500 mg 806-06 tablet by ity of tablet 00:00: 00:00 mouth in [place] 00 :00 the Medical morning Branch and 1 tablet in the evening. fluconazole 2021- No [id number] 150mg Take 1 Univers (DIFLUCAN) 8 08-10 tablet by ity of 150 mg 00:00: [...] mg tablets 00:00: [place] 00 Medical Branch amoxicillin Yes Univer s -clavulanat 9-30 ity of e 875-125 00:00: [place] mg per 00 Medical tablet Branch methylPREDN 2021-0 Yes Univer s ISolone 4 9-30 ity of mg tablets 00:00: [place] 00 Medical Branch amoxicillin 2021-0 Yes Univer s -clavulanat 9-30 ity of e 875-125 00:00: [place] mg per 00 Medical tablet Branch methylPREDN 2021-0 Yes Univer s ISolone 4 9-30 ity of mg tablets 00:00: [place] 00 Medical Branch amoxicillin 2021-0 Yes Univer s -clavulanat 9-30 ity of e 875-125 00:00: [place] mg per 00 Medical tablet Branch methylPREDN 2021-0 Yes Univer s ISolone 4 9-30 ity of mg tablets 00:00: [place] 00 Medical Branch amoxicillin 2021-0 Yes Univer s -clavulanat 9-30 ity of e 875-125 00:00: [place] mg per 00 Medical tablet Branch methylPREDN 2021-0 Yes Univer s ISolone 4 9-30 ity of mg tablets 00:00: [place] 00 Medical Branch amoxicillin 2021-0 Yes Univer s -clavulanat 9-30 ity of e 875-125 00:00: [place] mg per 00 Medical tablet Branch methylPREDN 2021-0 Yes Univer s ISolone 4 9-30 ity of mg tablets 00:00: [place] 00 Medical Branch amoxicillin 2021-0 2023- No Unive rs -clavulanat 05-31- ity of e 875-125 00:00: 00:00 [place] mg per 00 :00 Medical tablet Branch methylPREDN 2021-0 2023- No Unive rs ISolone 4 05-31- ity of mg tablets 00:00: 00:00 [place] 00 :00 Medical Branch amoxicillin 2021-0 2023- No Unive rs -clavulanat 05-31- ity of e 875-125 00:00: 00:00 [place] mg per 00 :00 Medical tablet Branch methylPREDN 2021-0 2023- No Unive rs ISolone 4 05-31- ity of mg tablets 00:00: 00:00 [place] 00 :00 Medical Branch amoxicillin 2021-0 2023- No Unive rs -clavulanat 05-31 ity of e 875-125 00:00: 00:00 [place] mg per 00 :00 Medical tablet Branch methylPREDN 2020-0 3- No Unive rs ISolone 4 05-31 ity of mg tablets 00:00: 00:00 [place] 00 : Medical Branch amLODIPine 2020-0 Yes 5mg Take 5 mg Un pollo 5 mg tablet 8-04 by mouth ity of 00:00: daily. [place] Medical Branch amLODIPine 2020-0 Yes 5mg Take 5 mg Un pollo 5 mg tablet 8-04 by mouth ity of 00:00: daily. [place] Medical Branch amLODIPine 2020-0 Yes 5mg Take 5 mg Un pollo 5 mg tablet 8-04 by mouth ity of 00:00: daily. [place] Medical Branch amLODIPine 2020-0 Yes 5mg Take 5 mg Un pollo 5 mg tablet 8-04 by mouth ity of 00:00: daily. [place] [facility] Branch amLODIPine 2020-0 Yes 5mg Take 5 mg Un pollo 5 mg tablet 8-04 by mouth ity of 00:00: daily. [place] Medical Branch amLODIPine 2020-0 Yes 5mg Take 5 mg Un pollo 5 mg tablet 8-04 by mouth ity of 00:00: daily. [place] Medical Branch amLODIPine 2020-0 3- No 5mg Take 5 mg U nivers 5 mg tablet 04-04 by mouth ity of 00:00: 00:00 daily. [place] 00 :00 Medical Branch amLODIPine 2020-0 3- No 5mg Take 5 mg U nivers 5 mg tablet 04-04 by mouth ity of 00:00: 00:00 daily. [place] 00 : Medical Branch amLODIPine 2020-0 3- No 5mg Take 5 mg U nivers 5 mg tablet 04-04 by mouth ity of 00:00: 00:00 daily. [place] 00 :00 Medical Branch lamoTRIgine 2020-0 Yes TAKE 1 Univ ers 25 mg 4-17 TABLET BY ity of tablet 00:00: MOUTH ONCE [place] 00 DAILY FOR Medical 14 DAYS Branch THEN 2 BY MOUTH ONCE DAILY FOR 14 DAYS THEN 4 BY MOUTH ONCE DAILY FOR 14 DAYS lamoTRIgine 2020-0 Yes TAKE 1 Univ ers 25 mg 4-17 TABLET BY ity of tablet 00:00: MOUTH ONCE [place] DAILY FOR Medical 14 DAYS Branch THEN [...] BY ity of tablet 00:00: MOUTH ONCE [place] 00 DAILY FOR Medical 14 DAYS Branch THEN 2 BY MOUTH ONCE DAILY FOR 14 DAYS THEN 4 BY MOUTH ONCE DAILY FOR 14 DAYS lamoTRIgine Yes TAKE 1 Univ ers 25 mg 4-17 TABLET BY ity of tablet 00:00: MOUTH ONCE [place] 00 DAILY FOR Medical 14 DAYS Branch THEN 2 BY MOUTH ONCE DAILY FOR 14 DAYS THEN 4 BY MOUTH ONCE DAILY FOR 14 DAYS lamoTRIgine 2022- No TAKE 1 Uni vers 25 mg 4-17 02-23 TABLET BY ity of tablet 00:00: 00:00 [place]CE [place] 00 :00 DAILY FOR Medical 14 DAYS Branch THEN 2 BY MOUTH ONCE DAILY FOR 14 DAYS THEN 4 BY MOUTH ONCE DAILY FOR 14 DAYS lamoTRIgine 2022- No TAKE 1 Uni vers 25 mg 4-17 02-23 TABLET BY ity of tablet 00:00: 00:00 [place]TH [place]CE [place] 00 :00 DAILY FOR Medical 14 DAYS Branch THEN 2 BY MOUTH ONCE DAILY FOR 14 DAYS THEN 4 BY MOUTH ONCE DAILY FOR 14 DAYS lamoTRIgine 2022- No TAKE 1 Uni vers 25 mg 4-17 02-23 TABLET BY ity of tablet 00:00: 00:00 M[place]TH ONCE [place] 00 :00 DAILY FOR Medical 14 DAYS Branch THEN 2 BY MOUTH ONCE DAILY FOR 14 DAYS THEN 4 BY MOUTH ONCE DAILY FOR 14 DAYS chlorhexidi Yes SWISH AND U crowers ne 0.12 % 3-25 SPIT OUT ity of mouthwash 00:00: 15 ML [place] 00 MOUTH Medical EVERY 12 Branch HOURS [...] ity of mouthwash 00:00: 15 ML [place] 00 MOUTH Medical EVERY 12 Branch HOURS [...] ity of mouthwash 00:00: 15 ML [place] 00 MOUTH Medical EVERY 12 Branch HOURS [...] ity of mouthwash 00:00: 15 ML [place] 00 MOUTH Medical EVERY 12 Branch HOURS [...] ity of mouthwash 00:00: 15 [place] 00 MOUTH Medical EVERY 12 Branch HOURS [...] ity of mouthwash 00:00: 15 ML [place] 00 MOUTH Medical EVERY 12 Branch HOURS [...] Medical (six) Branch hours as needed. chlorhexidi 2022- No SWISH AND Univers ne 0.12 % 3-25 02-23 SPIT OUT ity o f mouthwash 00:00: 00:00 15 ML BY [place] as 00 :00 MOUTH Medical EVERY 12 Branch HOURS FOR 14 DAYS amoxicillin 2020-0 2022- No TAKE 1 Uni vers 500 mg 3-25 02-23 CAPSULE BY ity of capsule 00:00: 00:00 MOUTH 3 [place] 00 :00 TIMES A Medical DAY FOR 7 Branch DAYS acetaminoph 2022- No 1{tbl} Take 1 U nivers en-codeine 3-25 02-23 tablet by ity of 300-30 mg 00:00: 00:00 mouth [place] tablet 00 :00 every 6 Medical (six) Branch hours as needed. chlorhexidi 2022- No SWISH AND Univers ne 0.12 % 3-25 02-23 SPIT OUT ity o f mouthwash 00:00: 00:00 15 ML BY [place] as 00 :00 MOUTH Medical EVERY 12 Branch HOURS FOR 14 DAYS amoxicillin 2022- No TAKE 1 Uni vers 500 mg 11-23 CAPSULE BY ity of capsule 00:00: 00:00 MOUTH 3 [place] 00 :00 TIMES A Medical DAY FOR 7 Branch DAYS acetaminoph 2022- No 1{tbl} Take 1 U nivers en-codeine 11-23 tablet by ity of 300-30 mg 00:00: 00:00 mouth [place] tablet 00 :00 every 6 Medical (six) Branch hours as needed. chlorhexidi 2022- No SWISH AND Univers ne 0.12 % 11-23 SPIT OUT ity o f mouthwash 00:00: 00:00 15 ML BY [place] as 00 :00 MOUTH Medical EVERY 12 Branch HOURS FOR 14 DAYS amoxicillin 2022- No TAKE 1 Uni vers 500 mg 11-23 CAPSULE BY ity of capsule 00:00: 00:00 MOUTH 3 [place] 00 :00 TIMES A Medical DAY FOR 7 Branch DAYS acetaminoph 2022- No 1{tbl} Take 1 U nivers en-codeine 11-23 tablet by ity of 300-30 mg 00:00: 00:00 mouth [place] tablet 00 :00 every 6 Medical (six) Branch hours as needed. Immunizations Ordered Filled Date Status Comments Source Immunization Name Immunization Name Influenza Virus 2022-06-06 Completed Universit y of Vaccine [facility] IM, 00:00:00 [place] Me dical Preserv and ABX Branch Free 6 MO-64 YRS Influenza Virus 2022-06-06 Completed Universit y of Vaccine [facility] IM, 00:00:00 [place] Me dical Preserv and ABX Branch Free 6 MO-64 YRS Influenza Virus 2022-06-06 Completed Universit y of Vaccine [facility] IM, 00:00:00 [place] Me dical Preserv and ABX Branch Free 6 MO-64 YRS Influenza Virus 2022-06-06 Completed Universit y of Vaccine [facility] IM, 00:00:00 [place] Me dical Preserv and ABX Branch Free 6 MO-64 YRS Influenza Virus 2022-06-06 Completed Universit y of Vaccine [facility] IM, 00:00:00 [place] Me dical Preserv and ABX Branch Free 6 MO-64 YRS Influenza Virus 2022-06-06 Completed Universit y of Vaccine [facility] IM, 00:00:00 [place] Me dical Preserv and ABX Branch Free 6 MO-64 YRS Influenza Virus 2022-06-06 Completed Universit y of Vaccine [facility] IM, 00:00:00 [place] Me dical Preserv and ABX Branch Free 6 MO-64 YRS Influenza Virus 2022-06-06 Completed Universit y of Vaccine [facility] IM, 00:00:00 [place] Me dical Preserv and ABX Branch Free 6 MO-64 YRS Influenza Virus 2022-06-06 Completed Universit y of Vaccine [facility] IM, 00:00:00 [place] Me dical Preserv and ABX Branch Free 6 MO-64 YRS SARS-COV-2 COVID-19 2021-01-02 Completed Unive rsity of MODERNA VACCINE 00:00:00 [place] Med ical Branch SARS-COV-2 COVID-19 2021-01-02 Completed Unive rsity of MODERNA VACCINE 00:00:00 [place] Med ical Branch SARS-COV-2 COVID-19 2021-01-02 Completed Unive rsity of MODERNA 12+ YRS 00:00:00 [place] Med ical VACCINE Branch SARS-COV-2 COVID-19 2021-01-02 Completed Unive rsity of MODERNA 12+ YRS 00:00:00 [place] Med ical VACCINE Branch SARS-COV-2 COVID-19 2021-01-02 Completed Unive rsity of MODERNA 12+ YRS 00:00:00 [place] Med ical VACCINE Branch SARS-COV-2 COVID-19 2021-01-02 Completed Unive rsity of MODERNA 12+ YRS 00:00:00 [place] Med ical VACCINE Branch SARS-COV-2 COVID-19 2021-01-02 Completed Unive rsity of MODERNA 12+ YRS 00:00:00 [place] Med ical VACCINE Branch SARS-COV-2 COVID-19 2021-01-02 Completed Unive rsity of MODERNA 12+ YRS 00:00:00 [place] Med ical VACCINE Branch SARS-COV-2 COVID-19 2021-01-02 Completed Unive rsity of MODERNA 12+ YRS 00:00:00 [place] Med ical VACCINE Branch SARS-COV-2 COVID-19 2021-01-02 Completed Unive rsity of MODERNA 12+ YRS 00:00:00 [place] Med ical VACCINE Branch SARS-COV-2 COVID-19 2021-01-02 Completed Unive rsity of MODERNA 12+ YRS 00:00:00 [place] Med ical VACCINE Branch SARS-COV-2 COVID-19 2021-01-02 Completed Unive rsity of MODERNA 12+ YRS 00:00:00 [place] Med ical VACCINE Branch SARS-COV-2 COVID-19 2020-12-05 Completed Unive rsity of MODERNA VACCINE 00:00:00 [place] Med ical Branch SARS-COV-2 COVID-19 2020-12-05 Completed Unive rsity of MODERNA VACCINE 00:00:00 [place] Med ical Branch SARS-COV-2 COVID-19 2020-12-05 Completed Unive rsity of MODERNA 12+ YRS 00:00:00 [place] Med ical VACCINE Branch SARS-COV-2 COVID-19 2020-12-05 Completed Unive rsity of MODERNA 12+ YRS 00:00:00 [place] Med ical VACCINE Branch SARS-COV-2 COVID-19 2020-12-05 Completed Unive rsity of MODERNA 12+ YRS 00:00:00 [place] Med ical VACCINE Branch SARS-COV-2 COVID-19 2020-12-05 Completed Unive rsity of MODERNA 12+ YRS 00:00:00 [place] Med ical VACCINE Branch SARS-COV-2 COVID-19 2020-12-05 Completed Unive rsity of MODERNA 12+ YRS 00:00:00 [place] Med ical VACCINE Branch SARS-COV-2 COVID-19 2020-12-05 Completed Unive rsity of MODERNA 12+ YRS 00:00:00 [place] Med ical VACCINE Branch SARS-COV-2 COVID-19 2020-12-05 Completed Unive rsity of MODERNA 12+ YRS 00:00:00 [place] Med ical VACCINE Branch SARS-COV-2 COVID-19 2020-12-05 Completed Unive rsity of MODERNA 12+ YRS 00:00:00 [place] Med ical VACCINE Branch SARS-COV-2 COVID-19 2020-12-05 Completed Unive rsity of MODERNA 12+ YRS 00:00:00 [place] Med ical VACCINE Branch SARS-COV-2 COVID-19 2020-12-05 Completed Unive rsity of MODERNA 12+ YRS 00:00:[address] [facility] VACCINE Branch Influenza Virus 2020-05-25 Completed Universit y of Vaccine Quad .5 mL 00:00:00 [place] Medical IM 6+ MO Branch Influenza Virus 2020-05-25 Completed Universit y of Vaccine Quad .5 mL 00:00:00 [place] Medical IM 6+ MO Branch Influenza Virus 2020-05-25 Completed Universit y of Vaccine [facility] .5 mL 00:00:00 [place] Medical IM 6+ MO Branch Influenza Virus 2020-05-25 Completed Universit y of Vaccine Quad .5 mL 00:00:00 [place] Medical IM 6+ MO Branch Influenza Virus 2020-05-25 Completed Universit y of Vaccine Quad .5 mL 00:00:00 [place] Medical IM 6+ MO Branch Influenza Virus 2020-05-25 Completed Universit y of Vaccine Quad .5 mL 00:00:00 [place] Medical IM 6+ MO Branch Influenza Virus 2020-05-25 Completed Universit y of Vaccine Quad .5 mL 00:00:00 [place] Medical IM 6+ MO Branch Influenza Virus 2020-05-25 Completed Universit y of Vaccine Quad .5 mL 00:00:00 [place] Medical IM 6+ MO Branch Influenza Virus 2020-05-25 Completed Universit y of Vaccine Quad .5 mL 00:00:00 [place] Medical IM 6+ MO Branch Influenza Virus 2020-05-25 Completed Universit y of Vaccine Quad .5 mL 00:00:00 [place] Medical IM 6+ MO Branch Influenza Virus 2020-05-25 Completed Universit y of Vaccine Quad .5 mL 00:00:00 [place] Medical IM 6+ MO Branch Influenza Virus 2020-05-25 Completed Universit y of Vaccine Quad .5 mL 00:00:00 [place] Medical IM 6+ MO Branch Influenza Virus 2017-07-15 Completed Universit y of Vaccine [facility] IM 3+ 00:00:[address] [facility] TDAP 2017-07-15 Completed University of 00:00:00 [facility] Influenza Virus 2017-07-15 Completed Universit y of Vaccine [facility] IM 3+ 00:00:[address] [facility] TDAP 2017-07-15 Completed University of 00:00:00 [facility] Influenza Virus 2017-07-15 Completed Universit y of Vaccine [facility] IM 3+ 00:00:[address] [facility] TDAP 2017-07-15 Completed University of 00:00:00 [facility] Influenza Virus 2017-07-15 Completed Universit y of Vaccine [facility] IM 3+ 00:00:[address] [facility] TDAP 2017-07-15 Completed University of 00:00:00 [facility] Influenza Virus 2017-07-15 Completed Universit y of Vaccine [facility] IM 3+ 00:00:[address] [facility] TDAP 2017-07-15 Completed University of 00:00:00 [facility] Influenza Virus 2017-07-15 Completed Universit y of Vaccine [facility] IM 3+ 00:00:[address] [facility] TDAP 2017-07-15 Completed University of 00:00:00 [facility] Influenza Virus 2017-07-15 Completed Universit y of Vaccine Quad IM 3+ 00:00:[address] [facility] TDAP 2017-07-15 Completed University of 00:00:00 [facility] Influenza Virus 2017-07-15 Completed Universit y of Vaccine Quad IM 3+ 00:00:[address] [facility] TDAP 2017-07-15 Completed University of 00:00:00 [facility] Influenza Virus 2017-07-15 Completed Universit y of Vaccine Quad IM 3+ 00:00:[address] [facility] TDAP 2017-07-15 Completed University of 00:00:00 [facility] Influenza Virus 2017-07-15 Completed Universit y of Vaccine Quad IM 3+ 00:00:[address] [facility] TDAP 2017-07-15 Completed University of 00:00:00 [facility] [facility] Influenza Virus 2017-07-15 Completed Universit y of Vaccine Quad IM 3+ 00:00:[address] [facility] TDAP 2017-07-15 Completed University of 00:00:00 [facility] Influenza Virus 2017-07-15 Completed Universit y of Vaccine Quad IM 3+ 00:00:[address] [facility] TDAP 2017-07-15 Completed University of 00:00:00 [facility] Rubella 2007-11-24 Completed University of 00:00:00 [facility] Rubella 2007-11-24 Completed University of 00:00:00 [facility] Rubella 2007-11-24 Completed University of 00:00:00 [facility] Rubella 2007-11-24 Completed University of 00:00:00 [facility] Rubella 2007-11-24 Completed University of 00:00:00 [facility] Rubella 2007-11-24 Completed University of 00:00:00 [facility] Rubella 2007-11-24 Completed University of 00:00:00 [facility] Rubella 2007-11-24 Completed University of 00:00:00 [facility] Rubella 2007-11-24 Completed University of 00:00:00 [facility] Rubella 2007-11-24 Completed University of 00:00:00 [facility] Rubella 2007-11-24 Completed University of 00:00:00 [facility] Rubella 2007-11-24 Completed University of 00:00:00 [facility] Td 2004-09-01 Completed University of 00:00:00 [facility] Td 2004-09-01 Completed University of 00:00:00 [facility] Td 2004-09-01 Completed University of 00:00:00 [facility] Td 2004-09-01 Completed University of 00:00:00 [facility] Td 2004-09-01 Completed University of 00:00:00 [facility] Td 2004-09-01 Completed University of 00:00:00 [facility] TD, NOS 2004-09-01 Completed University of 00:00:00 [facility] TD, NOS 2004-09-01 Completed University of 00:00:00 [facility] TD, NOS 2004-09-01 Completed University of 00:00:00 [facility] TD, NOS 2004-09-01 Completed University of 00:00:00 [facility] TD, NOS 2004-09-01 Completed University of 00:00:00 [facility] TD, NOS 2004-09-01 Completed University of 00:00:00 [facility] Rubella Unknown Completed [facility] TD, NOS Unknown Completed [facility] Influenza Virus Unknown Completed Universit y of Vaccine Quad IM 3+ [facility] TDAP Unknown Completed [facility] Influenza Virus Unknown Completed Universit y of Vaccine Quad .5 mL [facility] 6+ [place] Branch (FLUZONE/FLULAVAL/F LUARIX) SARS-COV-2 COVID-19 Unknown Completed Unive rsity of MODERNA 12+ YRS [place] [facility] VACCINE [facility] SARS-COV-2 COVID-19 Unknown Completed Unive rsity of MODERNA 12+ YRS [place] [facility] Rubella Unknown Completed [facility] TD, NOS Unknown Completed [facility] Influenza Virus Unknown Completed [facility]it y of Vaccine Quad IM 3+ [place] [facility] TDAP Unknown Completed [facility] Influenza Virus Unknown Completed Universit y of Vaccine Quad .5 mL [facility] 6+ [place] [facility] (FLUZONE/FLULAVAL/F LUARIX) SARS-COV-2 COVID-19 Unknown Completed Unive rsity of MODERNA 12+ YRS [place] [facility] VACCINE [facility] SARS-COV-2 COVID-19 Unknown Completed Unive rsity of MODERNA 12+ YRS [place] [facility] VACCINE [facility] Vital Signs Vital Name Observation Time Observation Value Comments Source Systolic blood 2022-10-24 19:35:00 120 mm[Hg] Univer sity of pressure [facility] Diastolic blood 2022-10-24 19:35:00 82 mm[Hg] Unive rsity of pressure [facility] Heart rate 2022-10-24 19:23:00 83 /min Universi ty of [facility] Body temperature 2022-10-24 19:23:00 37 Deyanira Univ ersity of [facility] Respiratory rate 2022-10-24 19:23:00 20 /min Univ ersity of [facility] Body height 2022-10-24 19:23:00 165.1 cm [facility] Body weight 2022-10-24 19:23:00 88.27 kg [facility] BMI 2022-10-24 19:23:00 32.38 kg/m2 Universi ty of [facility] Systolic blood 2022-06-06 19:00:00 138 mm[Hg] Univer sity of pressure [facility] Diastolic blood 2022-06-06 19:00:00 87 mm[Hg] Unive rsity of pressure [facility] Heart rate 2022-06-06 19:00:00 83 /min [facility] Body temperature 2022-06-06 19:00:00 36.83 Deyanira Univ ersity of [facility] Respiratory rate 2022-06-06 19:00:00 18 /min Univ ersity of [facility] Body height 2022-06-06 19:00:00 165.1 cm [facility] Body weight 2022-06-06 19:00:00 90.918 kg [facility] BMI 2022-06-06 19:00:00 33.35 kg/m2 [facility] Systolic blood 2022-04-05 20:13:00 151 mm[Hg] Univer sity of pressure [facility] Diastolic blood 2022-04-05 20:13:00 105 mm[Hg] Unive rsity of [facility] Heart rate 2022-04-05 20:13:00 70 /min [facility] Body temperature 2022-04-05 20:13:00 35.94 Deyanira [facility] 2022-04-05 20:13:00 16 /min [facility] Body height 2022-04-05 20:13:00 165.1 cm [facility] Body weight 2022-04-05 20:13:00 91.899 kg [facility] BMI 2022-04-05 20:13:00 33.71 kg/m2 [facility] Respitory Rate 2022-08-16 21:55:00 Memori al [facility] Heart Rate 2022-08-16 21:55:00 [facility] Systolic (mm Hg) 2022-08-16 21:55:00 Tariq rial Antonio Diastolic (mm Hg) 2022-08-16 21:55:00 Mem orial [facility] Height 2022-08-16 20:52:00 167.64 cm [facility] BMI Calculated 2022-08-16 20:52:00 [facility] Weight 2022-08-16 20:52:00 [facility] Systolic (mm Hg) 2022-08-16 20:52:00 Tariq rial Antonio Diastolic (mm Hg) 2022-08-16 20:52:00 Mem orial [facility] Heart Rate 2022-08-16 20:52:00 [facility] Respitory Rate 2022-08-16 20:52:00 Memori [facility] Temperature Oral (F) 2022-08-16 20:52:00 98.5 F [facility] Procedures Procedure Date / Time Performed Performing Clinician Sourc e GC & CHLAMYDIA 2022-06-06 20:03:00 Nina Sheffield [facility] HIV 1/2 AG-AB WITH 2022-06-06 20:03:00 Nina Sheffield [facility] REFLEX [facility] PAP SMEAR-LIQUID 2022-06-06 20:03:00 Nina Sheffield [facility] GALV ONLY - SYPHILIS 2022-06-06 20:03:00 [facility]IGM [facility] FLU VACC (), 2022-06-06 19:46:14 [facility]-64 [facility], .5ML, IM, Medical B ranch QUAD (FLUCELVAX) POCT TEST 2022-06-06 19:21:00 Nina Sheffield [facility] CONSENT/REFUSAL FOR 2022-06-06 18:48:19 Doctor Unassigned, No Un [facility] DIAGNOSIS AND [facility] TREATMENT ASSIGNMENT OF BENEFITS 2022-06-06 18:48:04 Doctor Unassigned, No General acute hospital Encounters Start End Encounter Admission Attending Care Care Encounter Source Date/Time Date/Time Type Type Clinicians Facility Department ID 2023-06-06 2023-06-06 [facility] [id number] [facility] 13:45:00 13:45:00 NINA meza o f [facility] 2022-10-29 2022-10-29 Emergency E EDDIE BELTRAN [facility] [id number] [facility] 19:18:00 20:17:00 2022-10-28 2022-10-28 Case Roberto Carlos [facility] 1.2.840.114 [id number] [facility] 00:00:00 00:00:00 Management Lupis Rose ANIMAL PATHOLOGY TEACHER 350.1.13.10 ity of [facility] 4.2.7.2.686 Abdon as MATERNAL [phone] [facility] ical & CHILD [address] [place] [address] 2022-10-28 2022-10-28 Telephone Nettie WADAMIAN [id number] Univers 00:00:00 00:00:00 Nina Galvan ANIMAL PATHOLOGY TEACHER 350.1.13.10 ity of [facility] [id number] Abdon as MATERNAL [id number] Med ical & CHILD [address] [place] [address] 2022-10-24 2022-10-24 Outpatient R ROBERTO CARLOS [facility] [id number] Univers 12:45:00 13:43:35 LUPIS meza [facility] 2022-10-24 2022-10-24 Office Provider, AnaisRmchp Olegario [facility] 1 .2.840.114 [id number] Univers 12:45:00 13:43:35 Visit Lupis Azevedo ANIMAL PATHOLOGY TEACHER 350.1.13.1 [facility] [id number] Abdon as MATERNAL [id number] Med ical & CHILD [address] [place] [address] 2022-10-24 2022-10-24 Letter Roberto Carlos [facility] 1.2.840.114 [id number] Univers 00:00:00 00:00:00 (Out) Lupis Rose ANIMAL PATHOLOGY TEACHER 350.1.13.10 i ty [facility] 4.2.7.2.686 Abdon as MATERNAL [id number] [facility] ical & CHILD [address] [place] [address] 2022-08-16 2022-08-16 Emergency [facility] [id number] Memoria 20:45:25 22:40:[address] 2022-08-16 2022-08-16 Outpatient Giovanni, MHPL MHPL [id number] 14:45:25 16:40:00 Ismail 00 [facility] 2022-08-16 2022-08-16 Outpatient Giovanni, MHPL MHPL [id number] 14:45:25 16:40:00 Ismail 00 [facility] 2022-08-16 2022-08-16 Emergency E GIOVANNI, MHBL MHBL [id number] MHBL 14:45:00 16:40:00 ISMAIL 2022-06-24 2022-06-24 Outpatient Chuyita STRAUSS [facility] [id number] Univers 09:30:00 09:30:00 MONTY meza o f [facility] 2022-06-21 2022-06-21 Outpatient Chuyita SHEFFIELD [facility] [id number] Univers 13:30:00 13:30:00 NINA ity o f [facility] 2022-06-17 2022-06-17 [facility] [id number] Univers 13:45:00 13:45:00 NINA ity o f [facility] 2022-06-06 2022-06-06 Outpatient R AKINSIPE, [facility] [id number] Univers 13:30:00 15:09:52 NINA ity o [facility] 2022-06-06 2022-06-06 Outpatient R AKINSIPE, [facility] [id number] Univers 13:30:00 15:09:52 NINA ity o [facility] 2022-06-06 2022-06-06 Office [facility] [id number] Univers 13:30:00 15:09:52 Visit Nina C ANIMAL PATHOLOGY TEACHER 350.1.13.10 ity of [facility] 4.2.7.2.686 Abdon as MATERNAL [phone] Med ical & CHILD [address] [place] [address] 2022-06-06 2022-06-06 Orders Doctor IRAM 1.2.840.114 [id number] Univers 00:00:00 00:00:00 Only Unassigned, LENA 350.1.13.10 ity of [place] [facility] 4.2.7.2.686 Abdon as [phone] [address] 2022-06-06 2022-06-06 Letter [facility] [id number] Univers 00:00:00 00:00:00 (Out) Nina C ANIMAL PATHOLOGY TEACHER 350.1.13.10 ity of [facility] 4.2.7.2.686 Abdon as MATERNAL [id number] Med ical & CHILD [address] [place] [address] 2022-04-09 2022-04-09 Telephone [facility] 1.2.840.114 [id number] Univers 00:00:00 00:00:00 Nina C ANIMAL PATHOLOGY TEACHER 350.1.13.10 ity of [facility] 4.2.7.2.686 Abdon as MATERNAL [phone] Med ical & CHILD [address] [facility] 2022-04-05 2022-04-05 Office [facility] [id number] Univers 14:30:00 15:48:12 Visit Nina C ANIMAL PATHOLOGY TEACHER 350.1.13.10 ity of REGIONAL 4.2.7.2.686 Abdon as MATERNAL [phone] [address] 2022-04-05 2022-04-05 Outpatient R NETTIE, [facility] [id number] Univers 14:30:00 15:48:12 NINA hurtadoy o f [facility] 2022-04-05 2022-04-05 Outpatient R NETTIE, [facility] [id number] Univers 14:30:00 14:30:00 NINA ity o f [facility] 2022-04-05 2022-04-05 Letter [facility] [id number] Univers 00:00:00 00:00:00 (Out) Nina C ANIMAL PATHOLOGY TEACHER 350.1.13.10 ity of REGIONAL 4.2.7.2.686 Abdon as MATERNAL [phone] [address] 2022-04-04 2022-04-04 Telephone [facility] 12.840.114 [id number] Univers 00:00:00 00:00:00 Nina C ANIMAL PATHOLOGY TEACHER 350.1.13.10 ity of REGIONAL 4.2.7.2.686 Abdon as MATERNAL [id number] [facility] & [address] 2022-03-06 2022-03-06 Outpatient FOG_Bloome_ AOSM AOSM [id number] Sharon 05:11:00 05:11:00 Vijaya [id number] [facility] 2022-03-06 2022-03-06 Outpatient FOG_[place]_ AOSM AOSM [id number] Sharon 05:11:00 05:11:00 Vijaya [id number] [facility] 2021-07-18 2021-07-19 Outpt [facility] [id number] Memoria 19:43:00 05:59:00 Services r Outpatient 00 l Imaging Antonio Richardson 2021-07-18 2021-07-18 Outpatient JOSELIN LuevanoALLI [facility] [id number] 13:43:00 23:59:00 Goldie Alirio Metzger 2021-06-15 2021-06-15 [facility] [id number] Univers 12:45:00 12:45:00 JAMAICA susana [facility] 2021-06-01 2021-06-01 Office [facility] [id number] Univers 13:03:53 13:45:00 Visit Jamaica Vasquez ANIMAL PATHOLOGY TEACHER 350.1.13.10 it y of [facility] 4.2.7.2.686 Abdon as MATERNAL [phone] Med ical & CHILD [address] [place] [address] 2021-06-01 2021-06-01 [facility] [id number] Univers 13:00:00 13:00:00 JAMAICA susana [facility] 2021-06-01 2021-06-01 Orders Doctor IRAM 1.2.840.114 [id number] Univers 00:00:00 00:00:00 Only Unassigned, LENA 350.1.13.10 ity of [place] [facility] 4.2.7.2.686 Abdon as [phone] [address] 2021-05-29 2021-05-29 [facility] [id number] Univers 00:00:00 00:00:00 Secure Msg Nina Galvan ANIMAL PATHOLOGY TEACHER 350.1.13.10 ity of [facility] 4.2.7.2.686 Abdon as MATERNAL [phone] Med ical & CHILD [address] [place] [address] 2021-05-21 2021-05-21 Telephone [facility] 1.2.840.114 [id number] Univers 00:00:00 00:00:00 [place] Vasquez ANIMAL PATHOLOGY TEACHER 350.1.13.10 it y of [facility] 4.2.7.2.686 Abdon as MATERNAL [phone] Med ical & CHILD [address] [place] [address] 2021-05-21 2021-05-21 Patient [facility] [id number] Univers 00:00:00 00:00:00 Secure Msg Nina C ANIMAL PATHOLOGY TEACHER 350.1.13.10 ity of REGIONAL 4.2.7.2.686 Abdon as MATERNAL [id number] [facility] & CHILD [address] [place] [address] 2021-05-21 2021-05-21 Telephone [facility] 1.2.840.114 [id number] Univers 00:00:00 00:00:00 Nina C ANIMAL PATHOLOGY TEACHER 350.1.13.10 ity of REGIONAL 4.2.7.2.686 Abdon as MATERNAL [phone] [address] 2021-05-18 2021-05-18 Office [facility] 1.2.686.156 [id number] Univers 15:51:07 16:39:33 Visit Nina Galvan ANIMAL PATHOLOGY TEACHER 350.1.13.10 ity of REGIONAL 4.2.7.2.686 Abdon as MATERNAL [id number] [address] 2021-05-18 2021-05-18 Outpatient R NETTIE [facility] [id number] Univers 15:45:00 15:45:00 NINA meza o f [facility] 2021-05-17 2021-05-17 Outpatient Chuyita BUSCH [facility] [id number] Univers 13:00:00 13:00:00 JAMAICA meza [facility] 2021-05-15 2021-05-15 Outpatient Chuyita BUSCH [facility] [id number] Univers 13:15:00 13:15:00 JAMAICA meza [facility] 2021-04-03 2021-04-03 [facility] 1.2.840.114 [id number] 11:13:47 12:00:19 Visit Monty Boogie ANIMAL PATHOLOGY TEACHER 350.1.13.10 REGIONAL 4.2.7.2.686 MATERNAL [id number] & [address] 2021-04-03 2021-04-03 Office Rica WAMB 1.2.840.114 [id number] Univers 11:13:47 12:00:19 Visit Monty Boogie ANIMAL PATHOLOGY TEACHER 350.1.13.10 ity of [facility] 4.2.7.2.686 Abdon as MATERNAL [id number] [facility] & [address] 2021-04-03 2021-04-03 [facility] [id number] Univers 10:45:00 10:45:00 MONTY ity o f [facility] 2021-04-03 2021-04-03 Orders Doctor IRAM 1.2.840.114 [id number] Univers 00:00:00 00:00:00 Only Unassigned, LENA 350.1.13.10 ity of [place] [facility] 4.2.7.2.686 Abdon as [phone] [address] 2021-01-04 2021-01-04 [facility]phone [facility] 1.2.840.114 [id number] Univers 00:00:00 00:00:00 [place] Vasquez ANIMAL PATHOLOGY TEACHER 350.1.13.10 it y of [facility] 4.2.7.2.686 Abdon as MATERNAL [id number] [address] 2021-01-02 2021-01-02 Outpatient Chuyita MORSE [facility] [id number] Univers 16:20:00 16:20:00 BRENDA [facility] 2021-01-02 2021-01-02 Office [facility] [id number] Univers 13:18:38 14:02:30 Visit [place] Vasquez ANIMAL PATHOLOGY TEACHER 350.1.13.10 it y of [facility] 4.2.7.2.686 Abdon as MATERNAL [id number] [facility] & [address] 2020-12-05 2020-12-05 Outpatient Chuyita MORSE [facility] [id number] Univers 17:30:00 17:30:00 BRENDA [facility] 2020-11-21 2020-11-21 Patient John [facility] 1.2.840.114 [id number] Univers 00:00:00 00:00:00 Outreach Fortunato MEJIA 350.1.13.10 i ty of [facility] 4.2.7.2.686 Rafael RAPP [phone] [address] 2020-10-13 2020-10-13 [facility] 1.2.840.114 [id number] Univers 00:00:00 00:00:00 Nina Galvan ANIMAL PATHOLOGY TEACHER 350.1.13.10 ity of [facility] 4.2.7.2.686 Abdon as MATERNAL [id number] Med ical & CHILD [address] [place] [address] 2020-06-05 2020-06-05 Telephone [facility] 1.2.840.114 [id number] Univers 00:00:00 00:00:00 [place] Vasquez ANIMAL PATHOLOGY TEACHER 350.1.13.10 it y of [facility] 4.2.7.2.686 Abdon as MATERNAL [id number] [facility] & CHILD [address] [place] [address] 2020-06-01 2020-06-01 Office [facility] [id number] Univers 13:36:16 14:28:18 Visit Jamaica Pedro ANIMAL PATHOLOGY TEACHER 350.1.13.10 it y of REGIONAL 4.2.7.2.686 Abdon as MATERNAL [phone] Med [facility] & CHILD [address] [place] [address] 2020-06-01 2020-06-01 [facility] [id number] Univers 13:30:00 13:30:00 JAMAICA meza [facility] 2020-05-25 2020-05-25 Office [facility] [id number] Univers 10:52:11 12:03:10 Visit [place] Pedro ANIMAL PATHOLOGY TEACHER 350.1.13.10 it y of [facility] 4.2.7.2.686 Abdon as MATERNAL [id number] [facility] & CHILD [address] [place] [address] 2020-05-25 2020-05-25 Out[facility] [id number] Univers 10:45:00 10:45:00 JAMAICA meza [facility] 2020-05-25 2020-05-25 Orders Doctor WALDEN 1.2.840.114 [id number] Univers 00:00:00 00:00:00 Only Unassigned, LENA 350.1.13.10 ity of [place] [facility] 4.2.7.2.686 [facility] as [id number] [address] 2020-02-24 2020-02-24 [facility] [id number] [facility] 10:30:00 10:30:00 NINA meza o f [facility] 2020-02-03 2020-02-03 Outpatient R [facility] [id number] [facility] 09:00:00 09:00:00 NINA meza o chuy [facility] Results Test Description Test Time Test Comments Results Result Comments Source IMMUNOLOGY 2022-08-16 21:01:00 Test Item Value Reference Range Interpretation Comme nts Coronavirus (COVID-19) RUFINO (test code = Not Detected (08/16/22 3:01 PM) Coronavirus (COVID-19) RUFINO) [id number] 21:01:00 Test Item Value Reference Range Interpretation Comments Coronavirus (COVID-19) Not Detected RUFINO (test code = (08/16/22 3:01 PM) Coronavirus (COVID-19) RUFINO) [facility] [id number] 21:01:00 Test Item Value Reference Range Interpretation Comments Grp A Strep Scr (test Negative (08/16/22 3:01 code = Grp A Strep PM) Scr) [facility] [id number] 21:01:00 Test Item Value Reference Range Interpretation Comments Influ A (test code = Negative (08/16/22 3:01 Influ A) PM) [facility] - [id number] 21:01:00 Test Item Value Reference Range Interpretation Comments Influ B (test code = Negative (08/16/22 3:01 Influ B) PM) [facility] ONLY - SYPHILIS [id number] 13:40:10 Test Item Value Reference Range Interpretation Comments Syphilis IgG/IgM (test Non-reactive Non-reactive code = 64874-2) TEODORA (test code = TEODORA) Non-reactive - No serologic evidence of T. pallidum infection. Cannot exclude incubating or early syphilis. Submit a second specimen in 2-4 weeks if syphilis is clinically suspected. Equivocal - Further testing to follow. Reactive - Further testing to follow. Lab Interpretation (test Normal code = 19115-0) [facility] [place] [id number] 13:40:10 Test Item Value Reference Range Interpretation Comments Syphilis IgG/IgM (test Non-reactive Non-reactive code = 67732-8) TEODORA (test code = TEODORA) Non-reactive - No serologic evidence of T. pallidum infection. Cannot exclude incubating or early syphilis. Submit a second specimen in 2-4 weeks if syphilis is clinically suspected. Equivocal - Further testing to follow. Reactive - Further testing to follow. Lab Interpretation (test Normal code = 29357-4) [facility] 1/2 AG-AB WITH [id number] 06:32:26 Test Item Value Reference Range Interpretation Comments HIV Negative Negative Semi-quantitative (test code = 79209-4) TEODORA (test code = Non-reactive for HIV-1 TEODORA) antigen and HIV-1/HIV-2 antibodies. ?No laboratory evidence of HIV infection. ?Repeat in 2-4 weeks if acute HIV infection is suspected. [facility] 1/2 AG-AB WITH [id number] 06:32:26 Test Item Value Reference Range Interpretation Comments HIV Negative Negative Semi-quantitative (test code = 52204-6) TEODORA (test code = Non-reactive for HIV-1 TEODORA) antigen and HIV-1/HIV-2 antibodies. ?No laboratory evidence of HIV infection. ?Repeat in 2-4 weeks if acute HIV infection is suspected. [facility] [id number] 19:22:00 Test Item Value Reference Range Interpretation Comments POCT PREG (test code = 1605) Negative On board controls acceptable with C Yes Line (test code = 3574) POCT PREG LOT # (test code = 3575) POCT PREG TEST DATE (test code = 3576) [facility] [id number] 19:22:00 Test Item Value Reference Range Interpretation Comments POCT PREG (test code = 1605) Negative On board controls acceptable with C Yes Line (test code = 3574) POCT PREG LOT # (test code = 3575) POCT PREG TEST DATE (test code = 3576) [facility]
--- NOTE | 2023-07-29 15:56 | EDPHYS ---
Physician Documentation [facility] Name: Cata Murray Age: 33 yrs Sex: Female : 1990 Arrival Date: 07/29/2023 Time: 14:16 Bed IW1 Private MD: ED Physician Jose Grier HPI: 07/29 14:35 This 33 yrs old Black Female presents to ER via Ambulatory with complaints of Flu kb Symptoms. 14:35 Patient is a 33-year-old female who presents for cough, congestion, body aches, kb headache and slight sore throat that started Friday night. 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 Denies fever or chills.. Historical: - Allergies: 14:34 No Known Allergies; aa5 - PMHx: 14:34 Asthma; aa5 - PSHx: 14:34 knee- right; aa5 - Immunization history:: Adult Immunizations up to date. - Social history:: Smoking status: Patient reports the use of cigarette tobacco products. ROS: 14:35 Abdomen/GI: Negative for abdominal pain, nausea, vomiting, diarrhea, and constipation, kb 14:35 Constitutional: Positive for body aches, malaise, 14:35 ENT: Positive for sinus congestion, sore throat, 14:35 Respiratory: Positive for cough, 14:35 Neuro: Positive for headache, 14:35 All other systems are negative, Exam: 14:35 Constitutional: This is a well developed, well nourished patient who is awake, alert, kb and in no acute distress. Head/Face: Normocephalic, atraumatic. ENT: Moist Mucous membranes Cardiovascular: Regular rate Respiratory: Respirations even and unlabored. No increased work of breathing. Talking in full sentences Skin: Warm, dry with normal turgor. Normal color. MS/ Extremity: Pulses equal, no cyanosis. Neurovascular intact. Full, normal range of motion. Neuro: Awake and alert, GCS 15, oriented to person, place, time, and situation. Moves all extremities. Normal gait. Vital Signs: 14:33 BP 149 / 97; Pulse 79; Resp 19 S; Temp 98.7(TE); Pulse Ox 99% on R/A; Weight 90.72 kg aa5 (R); Height 5 ft. 6 in. (R); 14:33 Body Mass Index 32.28 (90.72 kg, 167.64 cm) aa5 MDM: 14:21 Patient medically screened. kb 14:36 Differential Diagnosis: Bronchitis Influenza Upper Respiratory Infection Viral Syndrome kb Pneumonia Other COVID. Data reviewed: vital signs, nurses notes. Test considered but Not performed: X-ray: Chest x-ray considered but lungs clear bilaterally, respirations even and unlabored, oxygen saturation 99% on room air.. 15:55 Counseling: I had a detailed discussion with the patient and/or guardian regarding the kb historical points, exam findings, and any diagnostic results supporting the discharge/admit diagnosis, lab results, the need for outpatient follow up, a family practitioner, to return to the emergency department if symptoms worsen or persist or if there are any questions or concerns that arise at home. 07/29 14:35 Order name: Flu; Complete Time: 15:34 kb 07/29 14:35 Order name: COVID-19 SARS RT PCR; Complete Time: 15:33 kb 07/29 14:35 Order name: Strep; Complete Time: 15:33 kb 07/29 15:35 Order name: Throat Culture EDMS Administered Medications: No medications were administered Disposition: 16:50 I was immediately available on-site in the Emergency Department for consultation in the ms3 care of the patient. Disposition Summary: 07/29/23 15:56 Discharge Ordered Notes: Location: Home kb Condition: Stable kb Diagnosis - Acute upper respiratory infection, unspecified kb Followup: kb - With: Emergency Department - When: As needed - Reason: Worsening of condition Followup: kb - With: Private Physician - When: 2 - 3 days - Reason: Recheck today's complaints, Continuance of care, Re-evaluation by your physician Discharge Instructions: - Discharge Summary Sheet kb - Upper Respiratory Infection, Adult, [id number] kb Forms: - Medication Reconciliation Form kb - Thank You Letter kb - Antibiotic Education kb - Prescription Opioid Use kb - Patient Portal Instructions kb - Leadership Thank You Letter kb - Work release form iw Signatures: Dispatcher [employer] EDNelsy Conde, Ashley Greenberg RN RN aa5 Jose Grier, DO ms3
--- NOTE | 2023-07-29 15:56 | ER ---
Nurse's Notes [facility] Name: Cata Murray Age: 33 yrs Sex: Female : 1990 Arrival Date: 07/29/2023 Time: 14:16 Bed IW1 Private MD: Diagnosis: Acute upper respiratory infection, unspecified Presentation: 07/29 14:33 Chief complaint: Patient states: Friday night started with nasal congestion, slight aa5 cough. Pt reports she was recently on a cruise and family has same symptoms. Coronavirus screen: congestion, cough unrelated to allergies. Ebola Screen: Patient denies travel to an Ebola-affected area in the 21 days before illness onset. Initial Sepsis Screen: Does the patient meet any 2 criteria? No. Patient's initial sepsis screen is negative. Does the patient have a suspected source of infection? No. Patient's initial sepsis screen is negative. Risk Assessment: Do you want to hurt yourself or someone else? Patient reports no desire to harm self or others. Onset of symptoms was July 2023. 14:33 Method Of Arrival: Ambulatory aa5 14:33 Acuity: CARLOS 4 aa5 Historical: - Allergies: 14:34 No Known Allergies; aa5 - PMHx: 14:34 Asthma; aa5 - PSHx: 14:34 knee- right; aa5 - Immunization history:: Adult Immunizations up to date. - Social history:: Smoking status: Patient reports the use of cigarette tobacco products. Vital Signs: 14:33 BP 149 / 97; Pulse 79; Resp 19 S; Temp 98.7(TE); Pulse Ox 99% on R/A; Weight 90.72 kg aa5 (R); Height 5 ft. 6 in. (R); 14:33 Body Mass Index 32.28 (90.72 kg, 167.64 cm) aa5 ED Course: 14:19 Patient arrived in ED. im 14:19 Nels[facility] Chacko [facility]C [facility] kb 14:20 Jose Grier DO is Attending Physician. kb 14:33 Arm band placed on. aa5 14:34 Triage completed. aa5 14:51 COVID swab sent to lab. Flu and/or RSV swab sent to lab. Strep swab sent to lab. tm3 Administered Medications: No medications were administered Outcome: 15:56 Discharge ordered by . kb 16:54 Patient left the ED. iw Signatures: Nelsy Chacko, [employer] SUPERVISOR-CkSylvain Mendoza tm3 Jaquelin Arguello, RN RN iw Ashley Ferrara RN RN aa5 Barb Foster
[2023-07-29 17:12] VITALS: BP 149/97; TEMP 98.7; O2SAT 99
== END 2023-07-29 16:54 | disposition home or self-care (01) ==
LOC: ER 14:16
DX: J06.9 Acute upper respiratory infection, unspecified (principal); Z11.52 Encounter for screening for COVID-19; Z72.0 Tobacco use
CPT/HCPCS: 87070; 87081; 87635; 87804; 99282

== ENCOUNTER 2024-10-04 16:37 | Emergency (ER) | payer BC, SELFPAY ==
--- OUTSIDE RECORDS SUMMARY | 2024-10-04 16:42 | XMS REPORT | Continuity of Care Document ---
Author Name Unknown Address [address] [facility] [address] [place] [address] [facility] Address [address] [facility] [address] [place] [address] Care Team Providers Care Entertainment Reporter Name Role Phone HUMBERTO TRAN Primary Care Physician Unav ailable NINA SHEFFIELD Attending Clinician Unavail able Lenora Etienne Attending Clinician [phone] LENORA LAWSON Attending Clinician Unavailable Lab, Ang-dann Attending Clinician Unavailable AkinNina Trotter Attending Clinician + Lupis Azevedo CNM Attending Clinician [phone] Bryan Pinedo MD Attending Clinician [phone] LUPIS AZEVEDO Attending Clinician Unavaila ble Nurse, Jovanni Leslie [facility] Attending Clini anali Unavailable Doctor Unassigned, [place] Attending Clinician U VANDANA Andre MEDICAL Attending Gene n Unavailable BERTHA TATE Attending Clinician Unavailable EDDIE BELTRAN Attending Clinician Unavailable Provider, [facility] Attending Clinician Kat vailable ABE DAVILA Attending Clinician Kat vailable MONTY STRAUSS Attending Clinician Unavailab Romero Attending Clinician Unavaila JAMAICA Smith Attending Clinician Unavailkaren Busch DIRECTOR OF BUSINESS CONTINUITY, [place] Vasquez Attending Clinician [phone] Monty Butterfield Attending Clinician [phone] BRENDA MORSE Attending Clinician Unavailable Fortunato Lopez DO Attending Clinician [phone] Robert Admitting Clinician Unavaila annabella Payers Payer Name Policy Type Policy Number Effective Date Expirati on Date Source BC 2 [id number] 2023 00:00:00 [facility] [id number] 2021 00:00:00 Problems Condition Name Condition Details Condition Category Status Onset Date Resolution Date Last Treatment Date Treating Clinician Comments Source Need for HPV vaccinatio n Need for HPV vaccinatio n Disease Active 11-27 00:00: 00 [facility] Elevated blood pressure reading Elevated blood pressure reading Disease Active 11-27 00:00: 00 [facility] Hypertensi on, essential, benign Hypertensi on, essential, benign Disease Active 11-27 00:00: 00 [facility] BODY ACHE/ CHILLS BODY ACHE/ CHILLS Active 10/27/2022 [facility] Diagnosis Active 10-27 20:00: 00 2022-11-06 07:56:00 Scarlett Alvarez Viral upper respirator y tract infection (disorder) Viral upper respirator y tract infection (disorder) Active 08/16/2022 Diagnosis 08/19/2022 [facility] Diagnosis Active 2021-09 00:00: 00 2022-08-19 03:22:55 Scarlett Alvarez Sinusitis (disorder) Sinusitis (disorder) Active 08/16/2022 Diagnosis 08/19/2022 [facility] Diagnosis Active 2022-1 2-16 00:00: 00 2022-08-19 03:22:55 Scarlett Alvarez Viral pharyngiti s (disorder) Viral pharyngiti s (disorder) Active 08/16/2022 Diagnosis 08/19/2022 [facility] Diagnosis Active 2021-09 2- 00:00: 00 2022-08-19 03:22:55 Scarlett Alvarez CONGESTION /UNABLE TO SWALLOW/LO SS OF SME CONGESTION /UNABLE TO SWALLOW/LO SS OF SME Active 08/16/2022 [facility] Diagnosis Active 2021-09 2- 00:00: 00 2022-12-19 11:14:00 Scarlett Alvarez History of loop electrical excision procedure (LEEP) History of loop electrical excision procedure (LEEP) Disease Active 2019-09 0 00:00: 00 [facility] Tobacco use disorder Tobacco use disorder Disease Active 2016-09 1 00:00: 00 [facility] Female infertilit y Female infertilit y Disease Active 05-24 00:00: 00 Overview: Formattin g of this note might be different from the original. 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 02/09/2014 colpo done. 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 02/09/2014 colpo done. ALFRED 37/16/201 4- LEEP- ALFRED 3Needs cotesting 03/2015 [facility] Irregular menstrual cycle Irregular menstrual cycle Disease Active 12-16 00:00: 00 Overview: Formattin g of this note might be different from the original. x3 years. After taking Deposeeki ng . BBT started [facility] E04.1 - NONTOXIC SINGLE THYROID NODULE E04.1 - NONTOXIC SINGLE THYROID NODULE Active [facility] Diagnosis Active 2021-07-18 13:52:00 Scarlett Alvarez Obesity (BMI 30-39.9) Obesity (BMI 30-39.9) Disease Resolve d 05-24 00:00: 00 2024-02-13 00:00:00 2024-02-13 16:51:22 Overview: Formattin g of this note might be different from the original. 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 [employer] [facility] Contracept jimbo management Contracept jimbo management Disease Resolve d 12-29 00:00: 00 2021-06-01 00:00:00 2021-06-01 13:16:58 [facility] Trichomona l vulvovagin itis Trichomona l vulvovagin itis Disease Resolve d 2016-09 00:00: 00 2021-06-01 00:00:00 2021-06-01 13:16:54 [facility] Genital herpes Genital herpes Disease Resolve d 12-16 00:00: 00 2020-06-01 00:00:00 2022-03-17 00:24:04 [facility] Asthma Asthma Disease Resolve d 12-16 00:00: 00 2017-07-15 00:00:00 2022-03-17 00:24:04 [facility] Rubella immune Rubella immune Disease Resolve d 12-16 00:00: 00 2017-07-15 00:00:00 2017-07-15 13:48:53 [facility] Other general counseling and advice for contracept jimbo management Other general counseling and advice for contracept jimbo management Disease Resolve d 12-16 00:00: 00 2015-05-24 00:00:00 2015-05-24 13:13:20 [facility] History of Past Illness Condition Name Condition Details Condition Category Status Onset Date Resolution Date Last Treatment Date Treating Clinician Comments Source Acute upper respirator y infection, unspecifie d Acute upper respirator y infection, unspecifie d 08/16/2022 08/19/2022 [facility] Problem 2021-09-16 21:38: 00 2022-08-19 16:05:56 2022-08-19 16:05:56 Memmiriam Alvarez Chronic sinusitis, unspecifie d Chronic sinusitis, unspecifie d 08/16/2022 08/19/2022 [facility] Problem 2021-09- 21:38: 00 2022-08-19 16:05:56 2022-08-19 16:05:56 Scarlett Alvarez Acute pharyngiti s, unspecifie d Acute pharyngiti s, unspecifie d 08/16/2022 08/19/2022 [facility] Problem 2021-09- 21:38: 00 2022-08-19 16:05:56 2022-08-19 16:05:56 Scarlett Alvarez Acute pharyngiti s (disorder) Acute pharyngiti s (disorder) Diagnosis 08/19/2022 [facility] Diagnosis 2021-09 02- 21:38: 00 2022-08-19 03:22:55 2022-08-19 03:22:55 Scarlett Alvarez Acute upper respirator y infection (disorder) Acute upper respirator y infection (disorder) 08/16/2022 Diagnosis 08/19/2022 [facility] Diagnosis 2021-09 02- 21:38: 00 2022-08-19 03:22:55 2022-08-19 03:22:55 Scarlett Alvarez Chronic sinusitis (disorder) Chronic sinusitis (disorder) 08/16/2022 Diagnosis 08/19/2022 [facility] Diagnosis 2021-09 02- 21:38: 00 2022-08-19 03:22:55 2022-08-19 03:22:55 Scarlett Alvarez Allergies, Adverse Reactions, Alerts Allergy Name Allergy Type Status Severity Reaction(s) Onset Date Inactive Date Treating Clinician Comments Source METRONID AZOLE DRUG INGREDI Active Diarrhea 2021-09 0-06 00:00: 00 [facility] Metronid azole Drug Intolera nce Active Nausea and/or Vomiting 2021-09 0-06 00:00: 00 [facility] NO KNOWN ALLERGIE S Drug Class Active [facility] Social History Social Habit Start Date Stop Date Quantity Comments Source History SDOH Alcohol Frequency [facility] History SDOH Alcohol Std Drinks [facility] History SDOH Alcohol Binge [facility] Sexual orientation U [facility] Alcoholic beverage intake 2024-04-06 00:00:00 2024-04-06 00:00:00 Current drinker of alcohol (finding) [facility] Cigarettes smoked current (pack per day) - Reported 2024-02-13 00:00:00 2024-02-13 00:00:00 [facility] Cigarette pack-years 2024-02-13 00:00:00 2024-02-13 00:00:00 [facility] Tobacco use and exposure 2024-02-13 00:00:00 2024-02-13 00:00:00 Smokeless tobacco non-user [facility] Alcohol intake 2023-12-30 00:00:00 2023-12-30 00:00:00 Current drinker of alcohol (finding) [facility] History of Social function 2023-10-08 00:00:00 2023-10-08 00:00:00 [facility] Exposure to SARS-CoV-2 (event) 2022-10-14 00:00:00 2022-10-24 13:22:00 Not sure [facility] Tobacco Comment 2022-04-05 00:00:00 2022-04-05 00:00:00 5-6 cigarretes per day [facility] History of tobacco use 2014-07-15 00:00:00 2021-05-25 00:00:00 Cigarette Smoker [facility] Alcohol Comment 2014-04-13 00:00:00 2014-04-13 00:00:00 social only [facility] Sex assigned at 1990 00:00:00 1990 00:00:00 [facility] Smoking Status Start Date Stop Date Source Ex-smoker 2024-02-13 00:00:00 2024-02-13 00:00:00 U [facility] Social History [facility] Smokes tobacco daily 2020-05-25 00:00:00 [facility] Medications Ordered Medication Name Filled Medication Name Start Date Stop Date Current Medication? Ordering Clinician Indication Dosage Frequency Signature (SIG) Comments Components Source fluconazole 150 mg tablet 8-20 00:00: 00 Yes [id number] 150mg Take 1 tablet by mouth weekly. [facility] fluconazole 150 mg tablet 8-05 00:00: 00 04-13 04:59 :00 No [id number] 150mg Take 1 tablet by mouth every 3 (three) days for 3 doses. [facility] fluconazole 150 mg tablet 7-11 00:00: 00 03-12 04:59 :00 No [id number] 150mg Take 1 tablet by mouth once now for 1 dose. [facility] fluconazole 150 mg tablet 6-18 00:00: 00 02-17 04:59 :00 No [id number] 150mg Take 1 tablet by mouth once now for 1 dose. [facility] fluconazole (DIFLUCAN) 150 mg tablet 5-06 00:00: 00 01-05 04:59 :00 No [id number] 150mg Take 1 tablet by mouth once now for 1 dose. [facility] metroNIDAZO LE 500 mg tablet 4- 00:00: 00 Yes [id number] Take 2 tablets in morning and 2 tablets at night [facility] proMETHazin e 25 mg tablet 4 00:00: 00 Yes [id number] Take 1 tablet 2 hours before metronidaz ole [facility] fluconazole (DIFLUCAN) 150 mg tablet 4- 00:00: 00 12-01 04:59 :00 No [id number] 150mg Take 1 tablet by mouth once now for 1 dose. [facility] clindamycin 300 mg capsule 2-09 00:00: 00 10-18 05:59 :00 No [id number] 300mg Take 1 capsule by mouth in the morning and 1 capsule in the evening. Do all this for 7 days. [facility] fluconazole (DIFLUCAN) 150 mg tablet 2-09 00:00: 00 10-11 05:59 :00 No [id number] 150mg Take 1 tablet by mouth once now for 1 dose. [facility] boric acid 600 mg vaginal suppository 10-28 00:00: 00 11-12 04:59 :00 No [id number] 1{suppo sitory} Insert 1 Suppositor y into vagina at bedtime for 14 days. [facility] trazodone HCl (TRAZODONE ORAL) 10-24 13:26: 01 10-24 00:00 :00 No Take by mouth. [facility] Flonase 0.05 mg/inh nasal spray 2021-09 21:39: 00 Yes 2 spray, NASAL, Daily, in each nostril, # 16 gm, 1 Refill(s) Scarlett Alvarez Tylenol 2021-09 21:01: 00 No 975 mg, Route: PO, Drug form: TAB, ONCE, Dosing Weight 90.909, kg, Priority: STAT, Start date: 08/16/22 15:01:00 UNIT ASSISTANT, Stop date: 08/16/22 15:01:00 UNIT ASSISTANT Scarlett Alvarez ibuprofen 2021-09 21:01: 00 No 600 mg, Route: PO, Drug form: TAB, ONCE, Dosing Weight 90.909, kg, Priority: STAT, Start date: 08/16/22 15:01:00 UNIT ASSISTANT, Stop date: 08/16/22 15:01:00 UNIT ASSISTANT Scarlett Alvarez trazodone HCl (TRAZODONE ORAL) 2021-09 0 14:19: 58 Yes Take by mouth. [facility] metroNIDAZO LE 500 mg tablet 04-09 00:00: 00 06-06 00:00 :00 No [id number] 500mg Take 1 tablet by mouth in the morning and 1 tablet in the evening. [facility] fluconazole (DIFLUCAN) 150 mg tablet 04-09 00:00: 00 04-10 04:59 :00 No [id number] 150mg Take 1 tablet by mouth once now for 1 dose. [facility] trazodone HCl (TRAZODONE ORAL) 2020-09 0- 13:21: 25 Yes Take by mouth. [facility] amoxicillin -clavulanat e 875-125 mg per tablet 05-31 00:00: 00 10-24 00:00 :00 No [facility] methylPREDN ISolone 4 mg tablets 9- 00:00: 00 10-24 00:00 :00 No [facility] amLODIPine 5 mg tablet 8-04 00:00: 00 10-24 00:00 :00 No 5mg Take 5 mg by mouth daily. [facility] lamoTRIgine 25 mg tablet 4-17 00:00: 00 10-24 00:00 :00 No TAKE 1 TABLET BY MOUTH ONCE DAILY FOR 14 DAYS THEN 2 BY MOUTH ONCE DAILY FOR 14 DAYS THEN 4 BY MOUTH ONCE DAILY FOR 14 DAYS [facility] chlorhexidi ne 0.12 % mouthwash 3- 00:00: 00 10-24 00:00 :00 No SWISH AND SPIT OUT 15 ML BY MOUTH EVERY 12 HOURS FOR 14 DAYS [facility] amoxicillin 500 mg capsule - 00:00: 00 10-24 00:00 :00 No TAKE 1 CAPSULE BY MOUTH 3 TIMES A DAY FOR 7 DAYS [facility] acetaminoph en-codeine 300-30 mg tablet 3-25 00:00: 00 10-24 00:00 :00 No 1{tbl} Take 1 tablet by mouth every 6 (six) hours as needed. [facility] Immunizations Ordered Immunization Name Filled Immunization Name Date Status Comments Source HPV9 2024-04-05 00:00:00 Completed HPV9 2023-11-28 00:00:00 Completed HPV9 2023-10-08 00:00:00 Completed Influenza Virus Vaccine Quad IM, Preserv and ABX Free 6 MO-64 YRS (FLUCELVAX) 2022-06-06 00:00:00 Completed Influenza Virus Vaccine Quad IM, Preserv and ABX Free 6 MO-64 YRS 2022-06-06 00:00:00 Completed [facility] Influenza Virus Vaccine Quad IM, Preserv and ABX Free 6 MO-64 YRS 2022-06-06 00:00:00 Completed [facility] Influenza Virus Vaccine Quad IM, Preserv and ABX Free 6 MO-64 YRS 2022-06-06 00:00:00 Completed [facility] Influenza Virus Vaccine Quad IM, Preserv and ABX Free 6 MO-64 YRS 2022-06-06 00:00:00 Completed [facility] Influenza Virus Vaccine Quad IM, Preserv and ABX Free 6 MO-64 YRS 2022-06-06 00:00:00 Completed [facility] Influenza Virus Vaccine Quad IM, Preserv and ABX Free 6 MO-64 YRS 2022-06-06 00:00:00 Completed [facility] SARS-COV-2 COVID-19 MODERNA 12+ YRS VACCINE 2021-01-02 00:00:00 Completed [facility] SARS-COV-2 COVID-19 MODERNA VACCINE 2021-01-02 00:00:00 Completed [facility] SARS-COV-2 COVID-19 MODERNA VACCINE 2021-01-02 00:00:00 Completed [facility] SARS-COV-2 COVID-19 MODERNA 12+ YRS VACCINE 2021-01-02 00:00:00 Completed [facility] SARS-COV-2 COVID-19 MODERNA 12+ YRS VACCINE 2021-01-02 00:00:00 Completed [facility] SARS-COV-2 COVID-19 MODERNA 12+ YRS VACCINE 2021-01-02 00:00:00 Completed [facility] SARS-COV-2 COVID-19 MODERNA 12+ YRS VACCINE 2021-01-02 00:00:00 Completed [facility] SARS-COV-2 COVID-19 MODERNA 12+ YRS VACCINE 2021-01-02 00:00:00 Completed [facility] SARS-COV-2 COVID-19 MODERNA 12+ YRS VACCINE 2021-01-02 00:00:00 Completed [facility] SARS-COV-2 COVID-19 MODERNA 12+ YRS VACCINE 2021-01-02 00:00:00 Completed [facility] SARS-COV-2 COVID-19 MODERNA 12+ YRS VACCINE 2020-12-05 00:00:00 Completed [facility] SARS-COV-2 COVID-19 MODERNA VACCINE 2020-12-05 00:00:00 Completed [facility] SARS-COV-2 COVID-19 MODERNA VACCINE 2020-12-05 00:00:00 Completed [facility] SARS-COV-2 COVID-19 MODERNA 12+ YRS VACCINE 2020-12-05 00:00:00 Completed [facility] SARS-COV-2 COVID-19 MODERNA 12+ YRS VACCINE 2020-12-05 00:00:00 Completed [facility] SARS-COV-2 COVID-19 MODERNA 12+ YRS VACCINE 2020-12-05 00:00:00 Completed [facility] SARS-COV-2 COVID-19 MODERNA 12+ YRS VACCINE 2020-12-05 00:00:00 Completed [facility] SARS-COV-2 COVID-19 MODERNA 12+ YRS VACCINE 2020-12-05 00:00:00 Completed [facility] SARS-COV-2 COVID-19 MODERNA 12+ YRS VACCINE 2020-12-05 00:00:00 Completed [facility] SARS-COV-2 COVID-19 MODERNA 12+ YRS VACCINE 2020-12-05 00:00:00 Completed [facility] Influenza Virus Vaccine Quad .5 mL IM 6+ MO (FLUZONE/FLULAVAL/F LUARIX) 2020-05-25 00:00:00 Completed [facility] Influenza Virus Vaccine Quad .5 mL IM 6+ MO 2020-05-25 00:00:00 Completed [facility] Influenza Virus Vaccine Quad .5 mL IM 6+ MO 2020-05-25 00:00:00 Completed [facility] Influenza Virus Vaccine Quad .5 mL IM 6+ MO 2020-05-25 00:00:00 Completed [facility] Influenza Virus Vaccine Quad .5 mL IM 6+ MO 2020-05-25 00:00:00 Completed [facility] Influenza Virus Vaccine Quad .5 mL IM 6+ MO 2020-05-25 00:00:00 Completed [facility] Influenza Virus Vaccine Quad .5 mL IM 6+ MO 2020-05-25 00:00:00 Completed [facility] Influenza Virus Vaccine Quad .5 mL IM 6+ MO 2020-05-25 00:00:00 Completed [facility] Influenza Virus Vaccine Quad .5 mL IM 6+ MO 2020-05-25 00:00:00 Completed [facility] Influenza Virus Vaccine Quad .5 mL IM 6+ MO 2020-05-25 00:00:00 Completed [facility] Influenza Virus Vaccine Quad IM 3+ YRS 2017-07-15 00:00:00 Completed [facility] TDAP 2017-07-15 00:00:00 Completed Influenza Virus Vaccine Quad IM 3+ YRS 2017-07-15 00:00:00 Completed [facility] TDAP 2017-07-15 00:00:00 Completed [facility] Influenza Virus Vaccine Quad IM 3+ YRS 2017-07-15 00:00:00 Completed [facility] TDAP 2017-07-15 00:00:00 Completed [facility] Influenza Virus Vaccine Quad IM 3+ YRS 2017-07-15 00:00:00 Completed [facility] TDAP 2017-07-15 00:00:00 Completed [facility] Influenza Virus Vaccine Quad IM 3+ YRS 2017-07-15 00:00:00 Completed [facility] TDAP 2017-07-15 00:00:00 Completed [facility] Influenza Virus Vaccine Quad IM 3+ YRS 2017-07-15 00:00:00 Completed [facility] TDAP 2017-07-15 00:00:00 Completed [facility] Influenza Virus Vaccine Quad IM 3+ YRS 2017-07-15 00:00:00 Completed [facility] TDAP 2017-07-15 00:00:00 Completed [facility] Influenza Virus Vaccine Quad IM 3+ YRS 2017-07-15 00:00:00 Completed [facility] TDAP 2017-07-15 00:00:00 Completed [facility] Influenza Virus Vaccine Quad IM 3+ YRS 2017-07-15 00:00:00 Completed [facility] TDAP 2017-07-15 00:00:00 Completed [facility] Influenza Virus Vaccine Quad IM 3+ YRS 2017-07-15 00:00:00 Completed [facility] TDAP 2017-07-15 00:00:00 Completed [facility] Rubella 2007-11-24 00:00:00 Completed [facility] Rubella 2007-11-24 00:00:00 Completed [facility] Rubella 2007-11-24 00:00:00 Completed [facility] Rubella 2007-11-24 00:00:00 Completed [facility] Rubella 2007-11-24 00:00:00 Completed [facility] Rubella 2007-11-24 00:00:00 Completed [facility] Rubella 2007-11-24 00:00:00 Completed [facility] Rubella 2007-11-24 00:00:00 Completed [facility] Rubella 2007-11-24 00:00:00 Completed [facility] Rubella 2007-11-24 00:00:00 Completed [facility] TD, NOS 2004-09-01 00:00:00 Completed [facility] Td 2004-09-01 00:00:00 Completed [facility] Td 2004-09-01 00:00:00 Completed [facility] Td 2004-09-01 00:00:00 Completed [facility] Td 2004-09-01 00:00:00 Completed [facility] Td 2004-09-01 00:00:00 Completed [facility] TD, NOS 2004-09-01 00:00:00 Completed [facility] TD, NOS 2004-09-01 00:00:00 Completed [facility] TD, NOS 2004-09-01 00:00:00 Completed [facility] TD, NOS 2004-09-01 00:00:00 Completed [facility] Influenza Virus Vaccine Quad IM, Preserv and ABX Free 6 MO-64 YRS (FLUCELVAX) Unknown Completed [facility] HPV9 Unknown Completed [facility] Rubella Unknown Completed [facility] TD, NOS Unknown Completed [facility] Influenza Virus Vaccine Quad IM 3+ YRS Unknown Completed [facility] TDAP Unknown Completed [facility] SARS-COV-2 COVID-19 MODERNA 12+ YRS VACCINE Unknown Completed [facility] Influenza Virus Vaccine Quad IM, Preserv and ABX Free 6 MO-64 YRS (FLUCELVAX) Unknown Completed [facility] HPV9 Unknown Completed [facility] Rubella Unknown Completed [facility] TD, NOS Unknown Completed [facility] Influenza Virus Vaccine Quad IM 3+ YRS Unknown Completed [facility] TDAP Unknown Completed [facility] SARS-COV-2 COVID-19 MODERNA 12+ YRS VACCINE Unknown Completed [facility] Influenza Virus Vaccine Quad IM, Preserv and ABX Free 6 MO-64 YRS (FLUCELVAX) Unknown Completed [facility] HPV9 Unknown Completed [facility] Rubella Unknown Completed [facility] TD, NOS Unknown Completed [facility] Influenza Virus Vaccine Quad IM 3+ YRS Unknown Completed [facility] TDAP Unknown Completed [facility] SARS-COV-2 COVID-19 MODERNA 12+ YRS VACCINE Unknown Completed [facility] Influenza Virus Vaccine Quad IM, Preserv and ABX Free 6 MO-64 YRS (FLUCELVAX) Unknown Completed [facility] [facility] HPV9 Unknown Completed [facility] Rubella Unknown Completed [facility] TD, NOS Unknown Completed [facility] Influenza Virus Vaccine Quad IM 3+ YRS Unknown Completed [facility] TDAP Unknown Completed [facility] SARS-COV-2 COVID-19 MODERNA 12+ YRS VACCINE Unknown Completed [facility] Influenza Virus Vaccine Quad IM, Preserv and ABX Free 6 MO-64 YRS (FLUCELVAX) Unknown Completed [facility] HPV9 Unknown Completed [facility] Rubella Unknown Completed [facility] TD, NOS Unknown Completed [facility] Influenza Virus Vaccine Quad IM 3+ YRS Unknown Completed [facility] TDAP Unknown Completed [facility] SARS-COV-2 COVID-19 MODERNA 12+ YRS VACCINE Unknown Completed [facility] Influenza Virus Vaccine Quad IM, Preserv and ABX Free 6 MO-64 YRS (FLUCELVAX) Unknown Completed [facility] HPV9 Unknown Completed [facility] Rubella Unknown Completed [facility] TD, NOS Unknown Completed [facility] Influenza Virus Vaccine Quad IM 3+ YRS Unknown Completed [facility] TDAP Unknown Completed [facility] SARS-COV-2 COVID-19 MODERNA 12+ YRS VACCINE Unknown Completed [facility] Influenza Virus Vaccine Quad IM, Preserv and ABX Free 6 MO-64 YRS (FLUCELVAX) Unknown Completed [facility] HPV9 Unknown Completed [facility] Rubella Unknown Completed [facility] TD, NOS Unknown Completed [facility] Influenza Virus Vaccine Quad IM 3+ YRS Unknown Completed [facility] TDAP Unknown Completed [facility] SARS-COV-2 COVID-19 MODERNA 12+ YRS VACCINE Unknown Completed [facility] Influenza Virus Vaccine Quad IM, Preserv and ABX Free 6 MO-64 YRS (FLUCELVAX) Unknown Completed [facility] HPV9 Unknown Completed [facility] Rubella Unknown Completed [facility] TD, NOS Unknown Completed [facility] Influenza Virus Vaccine Quad IM 3+ YRS Unknown Completed [facility] TDAP Unknown Completed [facility] SARS-COV-2 COVID-19 MODERNA 12+ YRS VACCINE Unknown Completed [facility] Influenza Virus Vaccine Quad IM, Preserv and ABX Free 6 MO-64 YRS (FLUCELVAX) Unknown Completed [facility] HPV9 Unknown Completed [facility] Rubella Unknown Completed [facility] TD, NOS Unknown Completed [facility] Influenza Virus Vaccine Quad IM 3+ YRS Unknown Completed [facility] TDAP Unknown Completed [facility] SARS-COV-2 COVID-19 MODERNA 12+ YRS VACCINE Unknown Completed [facility] Influenza Virus Vaccine Quad IM, Preserv and ABX Free 6 MO-64 YRS (FLUCELVAX) Unknown Completed [facility] HPV9 Unknown Completed [facility] Rubella Unknown Completed [facility] TD, NOS Unknown Completed [facility] Influenza Virus Vaccine Quad IM 3+ YRS Unknown Completed [facility] TDAP Unknown Completed [facility] SARS-COV-2 COVID-19 MODERNA 12+ YRS VACCINE Unknown Completed [facility] Influenza Virus Vaccine Quad IM, Preserv and ABX Free 6 MO-64 YRS (FLUCELVAX) Unknown Completed [facility] HPV9 Unknown Completed [facility] Rubella Unknown Completed [facility] TD, NOS Unknown Completed [facility] Influenza Virus Vaccine Quad IM 3+ YRS Unknown Completed [facility] TDAP Unknown Completed [facility] SARS-COV-2 COVID-19 MODERNA 12+ YRS VACCINE Unknown Completed [facility] Influenza Virus Vaccine Quad IM, Preserv and ABX Free 6 MO-64 YRS (FLUCELVAX) Unknown Completed [facility] HPV9 Unknown Completed [facility] Rubella Unknown Completed [facility] TD, NOS Unknown Completed [facility] TDAP Unknown Completed [facility] Influenza Virus Vaccine Quad IM, Preserv and ABX Free 6 MO-64 YRS (FLUCELVAX) Unknown Completed [facility] Influenza Virus Vaccine Quad IM 3+ YRS Unknown Completed [facility] SARS-COV-2 COVID-19 MODERNA 12+ YRS VACCINE Unknown Completed [facility] HPV9 Unknown Completed [facility] Rubella Unknown Completed [facility] TD, NOS Unknown Completed [facility] Influenza Virus Vaccine Quad IM 3+ YRS Unknown Completed [facility] TDAP Unknown Completed [facility] SARS-COV-2 COVID-19 MODERNA 12+ YRS VACCINE Unknown Completed [facility] Influenza Virus Vaccine Quad IM, Preserv and ABX Free 6 MO-64 YRS (FLUCELVAX) Unknown Completed [facility] HPV9 Unknown Completed [facility] Rubella Unknown Completed [facility] TD, NOS Unknown Completed [facility] Influenza Virus Vaccine Quad IM 3+ YRS Unknown Completed [facility] TDAP Unknown Completed [facility] SARS-COV-2 COVID-19 MODERNA 12+ YRS VACCINE Unknown Completed [facility] Influenza Virus Vaccine Quad IM, Preserv and ABX Free 6 MO-64 YRS (FLUCELVAX) Unknown Completed [facility] HPV9 Unknown Completed [facility] Rubella Unknown Completed [facility] TD, NOS Unknown Completed [facility] Influenza Virus Vaccine Quad IM 3+ YRS Unknown Completed [facility] TDAP Unknown Completed [facility] SARS-COV-2 COVID-19 MODERNA 12+ YRS VACCINE Unknown Completed [facility] Influenza Virus Vaccine Quad IM, Preserv and ABX Free 6 MO-64 YRS (FLUCELVAX) Unknown Completed [facility] HPV9 Unknown Completed [facility] Rubella Unknown Completed [facility] TD, NOS Unknown Completed [facility] Influenza Virus Vaccine Quad IM 3+ YRS Unknown Completed [facility] TDAP Unknown Completed [facility] SARS-COV-2 COVID-19 MODERNA 12+ YRS VACCINE Unknown Completed [facility] Influenza Virus Vaccine Quad IM, Preserv and ABX Free 6 MO-64 YRS (FLUCELVAX) Unknown Completed [facility] HPV9 Unknown Completed [facility] Rubella Unknown Completed [facility] TD, NOS Unknown Completed [facility] Influenza Virus Vaccine Quad IM 3+ YRS Unknown Completed [facility] TDAP Unknown Completed [facility] SARS-COV-2 COVID-19 MODERNA 12+ YRS VACCINE Unknown Completed [facility] Influenza Virus Vaccine Quad IM, Preserv and ABX Free 6 MO-64 YRS (FLUCELVAX) Unknown Completed [facility] HPV9 Unknown Completed [facility] Rubella Unknown Completed [facility] TD, NOS Unknown Completed [facility] Influenza Virus Vaccine Quad IM 3+ YRS Unknown Completed [facility] TDAP Unknown Completed [facility] SARS-COV-2 COVID-19 MODERNA 12+ YRS VACCINE Unknown Completed [facility] Influenza Virus Vaccine Quad IM, Preserv and ABX Free 6 MO-64 YRS (FLUCELVAX) Unknown Completed [facility] HPV9 Unknown Completed [facility] Rubella Unknown Completed [facility] TD, NOS Unknown Completed [facility] Influenza Virus Vaccine Quad IM 3+ YRS Unknown Completed [facility] TDAP Unknown Completed [facility] SARS-COV-2 COVID-19 MODERNA 12+ YRS VACCINE Unknown Completed [facility] Influenza Virus Vaccine Quad IM, Preserv and ABX Free 6 MO-64 YRS (FLUCELVAX) Unknown Completed [facility] HPV9 Unknown Completed [facility] Rubella Unknown Completed [facility] TD, NOS Unknown Completed [facility] Influenza Virus Vaccine Quad IM 3+ YRS Unknown Completed [facility] TDAP Unknown Completed [facility] SARS-COV-2 COVID-19 MODERNA 12+ YRS VACCINE Unknown Completed [facility] Rubella Unknown Completed [facility] TD, NOS Unknown Completed [facility] Influenza Virus Vaccine Quad IM 3+ YRS Unknown Completed [facility] TDAP Unknown Completed [facility] SARS-COV-2 COVID-19 MODERNA 12+ YRS VACCINE Unknown Completed [facility] Rubella Unknown Completed [facility] TD, NOS Unknown Completed [facility] Influenza Virus Vaccine Quad IM 3+ YRS Unknown Completed [facility] TDAP Unknown Completed [facility] SARS-COV-2 COVID-19 MODERNA 12+ YRS VACCINE Unknown Completed [facility] Influenza Virus Vaccine Quad IM, Preserv and ABX Free 6 MO-64 YRS (FLUCELVAX) Unknown Completed [facility] Rubella Unknown Completed [facility] TD, NOS Unknown Completed [facility] TDAP Unknown Completed [facility] Influenza Virus Vaccine Quad IM, Preserv and ABX Free 6 MO-64 YRS (FLUCELVAX) Unknown Completed [facility] HPV9 Unknown Completed [facility] Influenza Virus Vaccine Quad IM 3+ YRS Unknown Completed [facility] SARS-COV-2 COVID-19 MODERNA 12+ YRS VACCINE Unknown Completed [facility] Rubella Unknown Completed [facility] TD, NOS Unknown Completed [facility] TDAP Unknown Completed [facility] Influenza Virus Vaccine Quad IM 3+ YRS Unknown Completed [facility] SARS-COV-2 COVID-19 MODERNA 12+ YRS VACCINE Unknown Completed [facility] Vital Signs Vital Name Observation Time Observation Value Comments S ource Systolic blood pressure 2024-04-05 15:31:00 129 mm[Hg] [facility] Diastolic blood pressure 2024-04-05 15:31:00 98 mm[Hg] [facility] Heart rate 2024-04-05 15:31:00 77 /min [facility] Body temperature 2024-04-05 15:30:00 36.61 Deyanira [facility] Respiratory rate 2024-04-05 15:30:00 18 /min [facility] Body height 2024-04-05 15:30:00 165.1 cm [facility] Body weight 2024-04-05 15:30:00 87.289 kg [facility] BMI 2024-04-05 15:30:00 32.02 kg/m2 [facility] Systolic blood pressure 2024-02-13 21:14:00 145 mm[Hg] [facility] Diastolic blood pressure 2024-02-13 21:14:00 103 mm[Hg] [facility] Heart rate 2024-02-13 21:14:00 83 /min [facility] Body temperature 2024-02-13 21:12:00 37 Deyanira [facility] Respiratory rate 2024-02-13 21:12:00 18 /min [facility] Body height 2024-02-13 21:12:00 165.1 cm [facility] Body weight 2024-02-13 21:12:00 85.928 kg [facility] BMI 2024-02-13 21:12:00 31.52 kg/m2 [facility] Systolic blood pressure 2023-12-30 12:20:00 150 mm[Hg] [place] [facility] Diastolic blood pressure 2023-12-30 12:20:00 105 mm[Hg] [facility] Heart rate 2023-12-30 12:15:00 82 /min [facility] Body temperature 2023-12-30 12:15:00 36.5 Deyanira [facility] Respiratory rate 2023-12-30 12:15:00 18 /min [facility] Body height 2023-12-30 12:15:00 165.1 cm Univ [facility] Body weight 2023-12-30 12:15:00 85.957 kg [facility] BMI 2023-12-30 12:15:00 31.53 kg/m2 [facility] Systolic blood pressure 2023-11-28 16:05:00 137 mm[Hg] [place] [facility] Diastolic blood pressure 2023-11-28 16:05:00 104 mm[Hg] [facility] Heart rate 2023-11-28 16:04:00 81 /min [facility] Body temperature 2023-11-28 16:04:00 36.78 Deyanira [facility] Respiratory rate 2023-11-28 16:04:00 20 /min [facility] Body height 2023-11-28 16:04:00 165.1 cm Univ [facility] Body weight 2023-11-28 16:04:00 85.503 kg Univ [facility] BMI 2023-11-28 16:04:00 31.37 kg/m2 Univ [facility] Body temperature 2023-11-28 15:54:00 36.44 Deyanira [facility] Systolic blood pressure 2023-10-08 19:36:00 135 mm[Hg] [facility] Diastolic blood pressure 2023-10-08 19:36:00 89 mm[Hg] [facility] Heart rate 2023-10-08 19:36:00 69 /min [facility] Body temperature 2023-10-08 19:36:00 36.72 Deyanira [facility] Respiratory rate 2023-10-08 19:36:00 19 /min [facility] Body height 2023-10-08 19:36:00 165.1 cm Univ [facility] Body weight 2023-10-08 19:36:00 85.957 kg [facility] BMI 2023-10-08 19:36:00 31.53 kg/m2 Univ [facility] Systolic blood pressure 2022-10-24 19:35:00 120 mm[Hg] [facility] Diastolic blood pressure 2022-10-24 19:35:00 82 mm[Hg] [facility] Heart rate 2022-10-24 19:23:00 83 /min [facility] Body temperature 2022-10-24 19:23:00 37 Deyanira [facility] Respiratory rate 2022-10-24 19:23:00 20 /min [facility] Body height 2022-10-24 19:23:00 165.1 cm Univ [facility] Body weight 2022-10-24 19:23:00 88.27 kg Univ [facility] BMI 2022-10-24 19:23:00 32.38 kg/m2 Univ [facility] Systolic blood pressure 2022-06-06 19:00:00 138 mm[Hg] [facility] Diastolic blood pressure 2022-06-06 19:00:00 87 mm[Hg] [facility] Heart rate 2022-06-06 19:00:00 83 /min [facility] Body temperature 2022-06-06 19:00:00 36.83 Deyanira [facility] Respiratory rate 2022-06-06 19:00:00 18 /min [facility] Body height 2022-06-06 19:00:00 165.1 cm Univ [facility] Body weight 2022-06-06 19:00:00 90.918 kg [facility] BMI 2022-06-06 19:00:00 33.35 kg/m2 [facility] Systolic blood pressure 2022-04-05 20:13:00 151 mm[Hg] [facility] Diastolic blood pressure 2022-04-05 20:13:00 105 mm[Hg] [facility] Heart rate 2022-04-05 20:13:00 70 /min [facility] Body temperature 2022-04-05 20:13:00 35.94 Deyanira [facility] Respiratory rate 2022-04-05 20:13:00 16 /min [facility] Body height 2022-04-05 20:13:00 165.1 cm [facility] Body weight 2022-04-05 20:13:00 91.899 kg [facility] BMI 2022-04-05 20:13:00 33.71 kg/m2 [facility] Respitory Rate 2022-08-16 21:55:00 [facility] 2022-08-16 21:55:00 [facility] Systolic (mm Hg) 2022-08-16 21:55:00 [facility] Diastolic (mm Hg) 2022-08-16 21:55:00 [facility] Height 2022-08-16 20:52:00 167.64 cm [facility] BMI Calculated 2022-08-16 20:52:00 [facility] Weight 2022-08-16 20:52:00 [facility] Systolic (mm Hg) 2022-08-16 20:52:00 [facility] Diastolic (mm Hg) 2022-08-16 20:52:00 [facility] Heart Rate 2022-08-16 20:52:00 [facility] Respitory Rate 2022-08-16 20:52:00 [facility] Temperature Oral (F) 2022-08-16 20:52:00 98.5 F [facility] Procedures Procedure Date / Time Performed Performing Clinician Source GARDASIL 9 (HPV 9V) VACCINE 2024-04-05 15:43:49 Nina Sheffield [facility] TESTOSTERONE, FREE 2024-02-19 18:40:00 Lenora Lawson [facility] PROLACTIN 2024-02-19 18:40:00 Lenora Lawson [facility] HORMONE 2024-02-19 18:40:00 Renny Lenora [facility] LIPID PANEL (38844)(TOTAL CHOLESTEROL, TRIGLYCERIDES, HDL) 2024-02-19 18:40:00 Renny [facility] POCT TEST 2024-02-13 21:42:00 Lenora Lawson [facility] GARDASIL 9 (HPV 9V) VACCINE 2023-11-28 15:54:09 Nina Sheffield [facility] HIV 1/2 AG-AB WITH REFLEX 2023-10-08 20:51:00 Nina Sheffield [facility] SYPHILIS IGG/IGM 2023-10-08 20:51:00 Maldonado Sheffield [facility] GARDASIL 9 (HPV 9V) VACCINE 2023-10-08 19:56:49 Nina Sheffield [facility] ASSIGNMENT OF BENEFITS 2023-10-08 19:19:59 Docto r Unassigned, [place] [facility] GC & CHLAMYDIA AMPLIFIED ASSAY 2022-06-06 20:03:00 Nina Sheffield [facility] HIV 1/2 AG-AB WITH REFLEX 2022-06-06 20:03:00 Nina Sheffield [facility] PAP SMEAR-LIQUID BASED-CP 2022-06-06 20:03:00 Nina Sheffield [facility] GALV ONLY - SYPHILIS IGG/IGM 2022-06-06 20:03:00 Nina Sheffield [facility] FLU VACC ([id number]), 6 MO-64 YRS, .5ML, IM, QUAD (FLUCELVAX) 2022-06-06 19:46:14 Nina Sheffield [facility] POCT TEST 2022-06-06 19:21:00 Lucien Sheffield [facility] CONSENT/REFUSAL FOR DIAGNOSIS AND TREATMENT 2022-06-06 18:48:19 Doctor Unassigned, [place] [facility] ASSIGNMENT OF BENEFITS 2022-06-06 18:48:04 Docto r Unassigned, [place] [facility] Encounters Start Date/Time End Date/Time Encounter Type Admission Type Attending Clinicians Care Facility Care Department Encounter ID Source 2024-09-08 15:28:12 2024-09-08 15:28:12 Outpatient [facility] [id number] 2024-06-07 00:00:00 2024-06-07 14:26:05 Refill Lenora Lawson [facility] CANCER GENETIC COUNSELOR [facility] & CHILD [facility] ..[id number] [facility] 2024-03-30 00:00:00 2024-05-01 18:20:52 Patient Secure Msg Lenora Lawson [facility] CANCER GENETIC COUNSELOR [facility] & CHILD [facility] ..[id number] [facility] 2024-04-19 00:00:00 2024-04-20 09:54:32 Patient Secure Msg Renny Lenora [facility] CANCER GENETIC COUNSELOR [facility] & CHILD [facility] ..[id number] [facility] 2024-04-20 00:00:00 2024-04-20 09:29:05 Case Management Lenora Lawson [facility] CANCER GENETIC COUNSELOR [facility] & CHILD [facility] [id number] [facility] 2024-04-05 10:15:00 2024-04-05 12:23:52 Outpatient R LENORA LAWSON [facility] [id number] [facility] 2024-04-05 10:15:00 2024-04-05 12:23:52 Office Visit Lenora Lawson [facility] CANCER GENETIC COUNSELOR [facility] & CHILD [facility] [id number] [facility] 2024-03-10 00:00:00 2024-03-11 14:51:51 Refill Lenora Lawson [facility] CANCER GENETIC COUNSELOR [facility] CHILD [facility] [id number] [facility] 2024-02-19 13:15:00 2024-02-19 13:41:04 Outpatient R LENORA LAWSON [facility] [id number] [facility] 2024-02-19 13:15:00 2024-02-19 13:41:04 [employer] Visit Lab[facility] CANCER GENETIC COUNSELOR [facility] CHILD [facility] [id number] [facility] 2024-02-17 00:00:00 2024-02-17 08:43:01 Case Management Lenora Lawson [facility] CANCER GENETIC COUNSELOR [place] [facility] 1.2.840.114 350.1.13.10 4.2.7.2.686 [id number] 107 [id number] [facility] 2024-02-13 16:00:00 2024-02-13 16:48:28 Outpatient R LENORA LAWSON [facility] [id number] [facility] 2024-02-13 16:00:00 2024-02-13 16:48:28 Office Visit Lenora Lawson [facility] CANCER GENETIC COUNSELOR [facility] & CHILD [facility] 1.2.840.114 350.1.13.10 4.2.7.2.686 [id number] 107 [id number] [facility] 2024-01-05 00:00:00 2024-02-07 18:26:35 Patient Secure Msg Nina Sheffield [facility] CANCER GENETIC COUNSELOR [facility] CHILD [facility] 1.2.840.114 350.1.13.10 4.2.7.2.686 [id number] 107 [id number] [facility] 2024-01-01 00:00:00 2024-02-07 18:07:04 Patient Secure Msg Nina Sheffield [facility] CANCER GENETIC COUNSELOR [facility] CHILD [facility] 1.2.840.114 350.1.13.10 4.2.7.2.686 [id number] 107 [id number] [facility] 2024-01-05 00:00:00 2024-01-05 16:53:06 Telephone Nina Sheffield [facility] CANCER GENETIC COUNSELOR [facility] CHILD [facility] 1.2.840.114 350.1.13.10 4.2.7.2.686 [id number] 107 [id number] [facility] 2023-12-30 06:45:00 2023-12-30 07:53:39 Outpatient R NINA SHEFFIELD [facility] [id number] [facility] 2023-12-30 06:45:00 2023-12-30 07:53:39 Office Visit Nina Sheffield [facility] CANCER GENETIC COUNSELOR [facility] CHILD [facility] 1.2.840.114 350.1.13.10 4.2.7.2.686 [id number] 107 [id number] [facility] 2023-12-30 00:00:00 2023-12-30 00:00:00 Letter (Out) Nina Sheffield [facility] CANCER GENETIC COUNSELOR [facility]ILD [facility] 1.2.840.114 350.1.13.10 4.2.7.2.686 [id number] 107 [id number] [facility] 2023-12-18 00:00:00 2023-12-18 00:00:00 Refill Lupis Azevedo [facility] CANCER GENETIC COUNSELOR [facility]ILD [facility] 1.2.840.114 350.1.13.10 4.2.7.2.686 [id number] 107 [id number] [facility] 2023-12-04 00:00:00 2023-12-04 00:00:00 Telephone Nina Sheffield [facility] CANCER GENETIC COUNSELOR [facility]ILD [facility] 1.2.840.114 350.1.13.10 4.2.7.2.686 [id number] 107 [id number] [facility] 2023-12-01 00:00:00 2023-12-01 00:00:00 Telephone Lupis Azevedo [facility] CANCER GENETIC COUNSELOR [facility] CHILD [facility] 1.2.840.114 350.1.13.10 4.2.7.2.686 [id number] 107 [id number] [facility] 2023-12-01 00:00:00 2023-12-01 00:00:00 Telephone Bryan Pinedo [facility] CANCER GENETIC COUNSELOR [facility] CHILD [facility] 1.2.840.114 350.1.13.10 4.2.7.2.686 [id number] 107 [id number] [facility] 2023-11-28 10:45:00 2023-11-28 11:22:44 Outpatient R LUPIS AZEVEDO [facility] [id number] [facility] 2023-11-28 10:45:00 2023-11-28 11:22:44 Office Visit Lupis Azevedo [facility] CANCER GENETIC COUNSELOR [facility] & CHILD [facility] ..840.114 350.1.13.10 4.2.7.2.686 [id number] 107 [id number] [facility] 2023-11-28 10:15:00 2023-11-28 11:22:36 Outpatient R NINA SHEFFIELD [facility] [id number] [facility] 2023-11-28 10:45:00 2023-11-28 11:00:00 Nurse Visit Nurse, Jovanni Rmchp Rgv Cprit Obgyn Nina Sheffield [facility] CANCER GENETIC COUNSELOR [facility] & CHILD [facility] ..840.114 350.1.13.10 4.2.7.2.686 [id number] 107 [id number] [facility] 2023-11-18 14:00:00 2023-11-18 14:00:00 Outpatient R NINA SHEFFIELD [facility] [id number] [facility] 2023-11-05 10:15:00 2023-11-05 10:15:00 Outpatient R SARAH SHEFFIELDOLA [facility] [id number] [facility] 2023-10-22 15:15:00 2023-10-22 15:15:00 Outpatient R NINA SHEFFIELD [facility] [id number] [facility] 2023-10-10 00:00:00 2023-10-10 00:00:00 Telephone Nina Sheffield [facility] CANCER GENETIC COUNSELOR [facility] CHILD [facility] ..840.114 350.1.13.10 4.2.7.2.686 [id number] 107 [id number] [facility] 2023-10-08 13:30:00 2023-10-08 14:50:21 Outpatient R SARAH SHEFFIELDOLA [facility] [id number] [facility] 2023-10-08 13:30:00 2023-10-08 14:50:21 Office Visit Nina Sheffield [facility] CANCER GENETIC COUNSELOR [facility] & CHILD [facility] 1.840.114 350.1.13.10 4.2.7.2.686 [id number] 107 [id number] [facility] 2023-10-08 00:00:00 2023-10-08 00:00:00 Orders Only Doctor Unassigned, [place] [facility] 1.840.114 350.1.13.10 4.2.7.2.686 [id number] [facility] 2023-10-02 00:00:00 2023-10-02 00:00:00 Outpatient GROUP, VANDANA RUBALCAVA [id number] Vandana Cardenas 2023-09-24 17:20:00 2023-09-24 22:35:00 Emergency E BERTHA TATE [facility] [id number] [facility] 2023-06-06 13:45:00 2023-06-06 13:45:00 Outpatient R NINA SHEFFIELD [facility] [id number] [facility] 2022-10-29 19:18:00 2022-10-29 20:17:00 [facility] [id number] [facility] 2022-10-28 00:00:00 2022-10-28 00:00:00 Case Management Lupis Azevedo [facility] CANCER GENETIC COUNSELOR [facility] & CHILD [facility] 1.840.114 350.1.13.10 4.2.7.2.686 [id number] 107 [id number] [facility] 2022-10-28 00:00:00 2022-10-28 00:00:00 Telephone Nina Sheffield [facility] CANCER GENETIC COUNSELOR [facility] MATERNAL & CHILD [facility] 1.840.114 350.1.13.10 4.2.7.2.686 [id number] 107 [id number] [facility] 2022-10-24 12:45:00 2022-10-24 13:43:35 Outpatient R LUPIS AZEVEDO [facility] [id number] [facility] 2022-10-24 12:45:00 2022-10-24 13:43:35 Office Visit Provider, Jovanni-Rmchp TemLupis Kellogg [facility] CANCER GENETIC COUNSELOR [facility] & CHILD [facility] 1.2.840.114 350.1.13.10 4.2.7.2.686 [id number] 107 [id number] [facility] 2022-10-24 00:00:00 2022-10-24 00:00:00 Letter (Out) Lupis Azevedo [facility] CANCER GENETIC COUNSELOR [facility] CHILD [facility] 1.2.840.114 350.1.13.10 4.2.7.2.686 [id number] 107 [id number] [facility] 2022-08-16 20:45:25 2022-08-16 22:40:00 Emergency [facility] [id number] [facility] 2022-08-16 14:45:00 2022-08-16 16:40:00 Emergency E ABE DAVILA [facility] [address] [facility] 2022-06-24 09:30:00 2022-06-24 09:30:00 Outpatient R MONTY STRAUSS [facility] [id number] [facility] 2022-06-21 13:30:00 2022-06-21 13:30:00 Outpatient R AKINSININA MANZO [facility] [id number] [facility] 2022-06-17 13:45:00 2022-06-17 13:45:00 Outpatient R AKINSIPENINA [facility] [id number] [facility] 2022-06-06 13:30:00 2022-06-06 15:09:52 Outpatient R AKINSIPENINA [facility] [id number] [facility] 2022-06-06 13:30:00 2022-06-06 15:09:52 Outpatient R NINA SHEFFIELD [facility] [id number] [facility] 2022-06-06 13:30:00 2022-06-06 15:09:52 Office Visit Nina Sheffield [facility] CANCER GENETIC COUNSELOR [facility] & CHILD [facility] 1.2.840.114 350.1.13.10 4.2.7.2.686 [id number] 107 [id number] [facility] 2022-06-06 00:00:00 2022-06-06 00:00:00 Orders Only Doctor Unassigned, [place] [facility] 1.2.840.114 350.1.13.10 4.2.7.2.686 [id number] [facility] 2022-06-06 00:00:00 2022-06-06 00:00:00 Letter (Out) Nina Sheffield [facility] CANCER GENETIC COUNSELOR [facility] CHILD [facility] 1.2.840.114 350.1.13.10 4.2.7.2.686 [id number] 107 [id number] [facility] 2022-04-09 00:00:00 2022-04-09 00:00:00 Telephone Nina Sheffield [facility] CANCER GENETIC COUNSELOR [facility] CHILD [facility] 1.2.840.114 350.1.13.10 4.2.7.2.686 [id number] 107 [id number] [facility] 2022-04-05 14:30:00 2022-04-05 15:48:12 Office Visit Nina Sheffield [facility] CANCER GENETIC COUNSELOR [facility] 1.2.840.114 350.1.13.10 4.2.7.2.686 [id number] 107 [id number] [facility] 2022-04-05 14:30:00 2022-04-05 15:48:12 Outpatient R NINA SHEFFIELD [facility] [id number] [facility] 2022-04-05 14:30:00 2022-04-05 14:30:00 Outpatient R NINA SHEFFIELD [facility] [id number] [facility] 2022-04-05 00:00:00 2022-04-05 00:00:00 Letter (Out) Nina Sheffield [facility] CANCER GENETIC COUNSELOR [facility] & CHILD [facility] 1..840.114 350.1.13.10 4.2.7.2.686 [id number] 107 [id number] [facility] 2022-04-04 00:00:00 2022-04-04 00:00:00 Telephone Nina Sheffield [facility] ..840.114 350.1.13.10 4.2.7.2.686 [id number] 107 [id number] [facility] 2022-03-06 05:11:00 2022-03-06 05:11:00 Outpatient MANUEL_Digna Lilly AOSM AOSM [id number] [facility] 2022-03-06 05:11:00 2022-03-06 05:11:00 Outpatient MANUEL_Digna Lilly AOSM AOSM [id number] [facility] 2021-07-18 19:43:00 2021-07-19 05:59:00 Outpt Diag Services nullFlavo r [facility] [place] [id number] Scarlett Alvarez 2021-06-15 12:45:00 2021-06-15 12:45:00 Outpatient R JAMAICA BUSCH [facility] [id number] [facility] 2021-06-01 13:03:53 2021-06-01 13:45:00 Office Visit Jamaica Busch [facility] ..840.114 350.1.13.10 4.2.7.2.686 [id number] 107 [id number] [facility] 2021-06-01 13:00:00 2021-06-01 13:00:00 Outpatient R JAMAICA BUSCH [facility] [id number] [facility] 2021-06-01 00:00:00 2021-06-01 00:00:00 Orders Only Doctor Unassigned, [place] [facility] 1.2840.114 350.1.13.10 4.2.7.2.686 [id number] [facility] 2021-05-29 00:00:00 2021-05-29 00:00:00 Patient Secure Msg Nina Sheffield [facility] CANCER GENETIC COUNSELOR [facility] & CHILD [facility] 1.2840.114 350.1.13.10 4.2.7.2.686 [id number] 107 [id number] [facility] 2021-05-21 00:00:00 2021-05-21 00:00:00 Telephone Jamaica Busch [facility] CANCER GENETIC COUNSELOR [facility] & CHILD [facility] 1.2840.114 350.1.13.10 4.2.7.2.686 [id number] 107 [id number] [facility] 2021-05-21 00:00:00 2021-05-21 00:00:00 Patient Secure Msg Nina Sheffield [facility] CANCER GENETIC COUNSELOR [facility] CHILD [facility] 1.2840.114 350.1.13.10 4.2.7.2.686 [id number] 107 [id number] [facility] 2021-05-21 00:00:00 2021-05-21 00:00:00 Telephone Nina Sheffield [facility] CANCER GENETIC COUNSELOR [facility] CHILD [facility] 1.2.840.114 350.1.13.10 4.2.7.2.686 [id number] 107 [id number] [facility] 2021-05-18 15:51:07 2021-05-18 16:39:33 Office Visit Nina Sheffield [facility] CANCER GENETIC COUNSELOR [facility] CHILD [facility] 1.2840.114 350.1.13.10 4.2.7.2.686 [id number] 107 [id number] [facility] 2021-05-18 15:45:00 2021-05-18 15:45:00 Outpatient R NINA SHEFFIELD [facility] [id number] [facility] 2021-05-17 13:00:00 2021-05-17 13:00:00 Outpatient R JAMAICA BUSCH [facility] [id number] [facility] 2021-05-15 13:15:00 2021-05-15 13:15:00 Outpatient R JAMAICA BUSCH [facility] [id number] [facility] 2021-04-03 11:13:47 2021-04-03 12:00:19 Office Visit Monty Strauss [facility] CANCER GENETIC COUNSELOR [facility] CHILD [facility] 1.84.114 350.1.13.10 4.2.7.2.686 [id number] 107 [id number] [facility] 2021-04-03 11:13:47 2021-04-03 12:00:19 Office Visit Monty Strauss [facility] CANCER GENETIC COUNSELOR [facility] CHILD [facility] 1..84.114 350.1.13.10 4.2.7.2.686 [id number] 107 [id number] 2021-04-03 10:45:00 2021-04-03 10:45:00 Outpatient R MONTY STRAUSS [facility] [id number] [facility] 2021-04-03 00:00:00 2021-04-03 00:00:00 Orders Only Doctor Unassigned, [place] [facility] 1.84.114 350.1.13.10 4.2.7.2.686 [id number] [facility] 2021-01-04 00:00:00 2021-01-04 00:00:00 Telephone Jamaica Busch [facility] CANCER GENETIC COUNSELOR [facility] & CHILD [facility] 1.2.840.114 350.1.13.10 4.2.7.2.686 [id number] 107 [id number] [facility] 2021-01-02 16:20:00 2021-01-02 16:20:00 Outpatient BRENDA SOFIA [facility] [id number] [facility] 2021-01-02 13:18:38 2021-01-02 14:02:30 Office Visit Jamaica Busch [facility] CANCER GENETIC COUNSELOR [facility] CHILD [facility] 1.2.840.114 350.1.13.10 4.2.7.2.686 [id number] 107 [id number] [facility] 2020-12-05 17:30:00 2020-12-05 17:30:00 Outpatient BRENDA SOFIA [facility] [id number] [facility] 2020-11-21 00:00:00 2020-11-21 00:00:00 Patient Outreach Fortunato Lopez [facility] 1.2.840.114 350.1.13.10 4.2.7.2.686 [id number] [facility] 2020-10-13 00:00:00 2020-10-13 00:00:00 Telephone Nina Sheffield [facility] CANCER GENETIC COUNSELOR [facility]ILD [facility] 1.2.840.114 350.1.13.10 4.2.7.2.686 [id number] 107 [id number] [facility] 2020-06-05 00:00:00 2020-06-05 00:00:00 Telephone Jamaica Busch [facility] CANCER GENETIC COUNSELOR [facility] CHILD [facility] 1.2.840.114 350.1.13.10 4.2.7.2.686 [id number] 107 [id number] [facility] 2020-06-01 13:36:16 2020-06-01 14:28:18 Office Visit Jamaica Busch [facility] CANCER GENETIC COUNSELOR [facility] & CHILD [facility] 1.2.840.114 350.1.13.10 4.2.7.2.686 [id number] 107 [id number] [facility] 2020-06-01 13:30:00 2020-06-01 13:30:00 Outpatient JAMAICA TORRES [facility] [id number] [facility] 2020-05-25 10:52:11 2020-05-25 12:03:10 Office Visit Jamaica Busch [facility] CANCER GENETIC COUNSELOR [facility] CHILD [facility] 1.2.840.114 350.1.13.10 4.2.7.2.686 [id number] 107 [id number] [facility] 2020-05-25 10:45:00 2020-05-25 10:45:00 Outpatient JAMAICA TORRES [facility] [id number] [facility] 2020-05-25 00:00:00 2020-05-25 00:00:00 Orders Only Doctor Unassigned, [place] [facility] 1.2.840.114 350.1.13.10 4.2.7.2.686 [id number] [facility] 2020-02-24 10:30:00 2020-02-24 10:30:00 Outpatient NINA DAVID [facility] [id number] [facility] 2020-02-03 09:00:00 2020-02-03 09:00:00 Outpatient R NINA SHEFFIELD [facility] [id number] [facility] Results Test Description Test Time Test Comments Results Result Co mments Source [id number] 21:42:00* Test Item Value Reference Range Interpretation Comme nts POCT PREG (test code = 1605) Negative On board controls acceptable with C Line (test code = 3574) Yes POCT PREG LOT # (test code = 3575) POCT PREG TEST DATE ( test code = 3576) [facility]2022-12-16 21:01:00* Test Item Value Reference Range Interpretation Comme nts Coronavirus (COVID-19) RUFINO (test code = Coronavirus (COVID-19) RUFINO) Not Detected (08/16/22 3:01 PM) [place] [id number] 21:01:00* Test Item Value Reference Range Interpretation Comme nts Grp A Strep Scr (test code = Grp A Strep Scr) Negative (08/16/22 3:01 PM) [facility] ONLY - SYPHILIS [id number] 13:40:10* Test Item Value Reference Range Interpretation Comme nts Syphilis IgG/IgM (test code = 01130-0) Non-reactive Non-reactive TEODORA (test code = TEODORA) Non-reactive - No serologic evidence of T. pallidum infection. Cannot exclude incubating or early syphilis. Submit a second specimen in 2-4 weeks if syphilis is clinically suspected. Equivocal - Further testing to follow. Reactive - Further testing to follow. Lab Interpretation (test code = 01657-0) Normal [facility] ONLY - SYPHILIS [id number] 13:40:10* Test Item Value Reference Range Interpretation Comme nts Syphilis IgG/IgM (test code = 21229-4) Non-reactive Non-reactive TEODORA (test code = TEODORA) Non-reactive - No serologic evidence of T. pallidum infection. Cannot exclude incubating or early syphilis. Submit a second specimen in 2-4 weeks if syphilis is clinically suspected. Equivocal - Further testing to follow. Reactive - Further testing to follow. Lab Interpretation (test code = 44196-5) Normal [facility] 1/2 AG-AB WITH [id number] 06:32:26* Test Item Value Reference Range Interpretation Comme nts HIV Semi-quantitative (test code = 78555-5) Negative Negative TEODORA (test code = TEDOORA) Non-reactive for HIV-1 antigen and HIV-1/HIV-2 antibodies. ?No laboratory evidence of HIV infection. ?Repeat in 2-4 weeks if acute HIV infection is suspected. [facility] 1/2 AG-AB WITH [id number] 06:32:26* Test Item Value Reference Range Interpretation Comme nts HIV Semi-quantitative (test code = 18492-0) Negative Negative TEODORA (test code = TEODORA) Non-reactive for HIV-1 antigen and HIV-1/HIV-2 antibodies. ?No laboratory evidence of HIV infection. ?Repeat in 2-4 weeks if acute HIV infection is suspected. [facility] [id number] 19:22:00* Test Item Value Reference Range Interpretation Comme nts POCT PREG (test code = 1605) Negative On board controls acceptable with C Line (test code = 3574) Yes POCT PREG LOT # (test code = 3575) POCT PREG TEST DATE ( test code = 3576) [facility] [id number] 19:22:00* Test Item Value Reference Range Interpretation Comme nts POCT PREG (test code = 1605) Negative On board controls acceptable with C Line (test code = 3574) Yes POCT PREG LOT # (test code = 3575) POCT PREG TEST DATE ( test code = 3576) [facility]
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
[2024-10-04 17:13] VITALS: BP 140/109; TEMP 97.5; O2SAT 100
== END 2024-10-04 16:55 | disposition home or self-care (01) ==
LOC: ER 16:37
DX: R42 Dizziness and giddiness (principal); T59.891A Toxic effect of other specified gases, fumes and vapors, accidental (unintentional), initial encounter